=== PATIENT | male | born 1960 | race Two or more races ===

== ENCOUNTER → 2022-06-01 13:32 | Outpatient (BNVA) | payer MEDICARE, MEDICAID, SELFPAY | PROVIDERS: PCP Hospitalist; Visit Provider Surgery | DX: L98.9 Disorder of the skin and subcutaneous tissue, unspecified (principal) | CPT/HCPCS: 99202 ==

== ENCOUNTER 2022-06-23 13:07 | Outpatient (REF) | payer MEDICARE, MEDICAID, SELFPAY | END 2022-06-23 13:08 | disposition home or self-care (01) | LOC: CF 13:07 | PROVIDERS: PCP Hospitalist; Visit Provider Surgery | DX: D22.4 Melanocytic nevi of scalp and neck (principal); L91.8 Other hypertrophic disorders of the skin | CPT/HCPCS: 11400; 11420; 88304; 88305 ==

== ENCOUNTER 2022-07-08 08:16 | Outpatient (REF) | payer MEDICARE, MEDICAID, SELFPAY ==
--- NOTE | ~2022-07-08 | CT_ITS ---
EXAMINATION: CT ANGIOGRAM CHEST WITHOUT AND WITH CONTRAST (CT PULMONARY ANGIOGRAM FOR PE) CLINICAL INFORMATION: Solitary pulmonary nodule, localized edema. COMPARISON: None TECHNIQUE: Prior to contrast administration, noncontrast localization images were obtained. Subsequently, multidetector volumetric imaging was performed from the thoracic inlet to below the diaphragms following the administration of 80 mL Omnipaque 350 intravenous contrast. No contrast reaction reported Sagittal, coronal, and MIP oblique sagittal reformatted images were obtained on the CT workstation, uploaded to PACS, and reviewed. This CT examination was performed using dose optimization techniques as appropriate, variously including the following: *Automated exposure control *Adjustment of mA and/or kV according to patient size (this includes techniques or standardized protocols for targeted exams where dose is matched to indication/reason for exam; i.e. extremities or head) *Use of iterative reconstruction technique Total exam dose-length product 158 mGy-cm. FINDINGS: The exam is limited secondary to breathing motion artifact. QUALITY OF STUDY/CONTRAST BOLUS: Satisfactory. PULMONARY ARTERIES: No central or segmental pulmonary emboli. THORACIC AORTA: The thoracic aorta is of normal caliber. No dissection or aneurysm seen. LUNG: The lungs are well-expanded and clear of acute pneumonic process. Minimal atelectatic changes are seen in the right lower lobe with elevated right hemidiaphragm. There is a 1 cm nodule right middle lobe. No additional lung nodules seen. PLEURA: No pleural effusion or pneumothorax. MEDIASTINUM: Heart size is normal. No pericardial effusion seen. No evidence of septal bowing or right heart strain. Small shotty lymph nodes are seen in the mediastinum. CHEST WALL/AXILLA: No axillary or internal mammary lymphadenopathy. OSSEOUS STRUCTURES: No acute or suspicious osseous abnormality. UPPER ABDOMEN: Visualized liver, pancreas and adrenal glands are unremarkable. No reflux of contrast into the hepatic veins to suggest elevated right heart pressures. Epvnn-ud-kocwkzhh-sized lymph nodes are seen in the upper retroperitoneum. The largest lymph nodes measure 2 cm on axial image 53/5. CT/CT angio chest PE protocol IMPRESSION: 1 cm right middle lobe nodule. No evidence of PE, aortic aneurysm or dissection. Minimal atelectatic changes right lower lobe. VTE: negative
[2022-07-08] MEDS: iohexoL 350 MG/ML 100 ML INFUS..BTL 65 ML IV (09:08)
== END 2022-07-08 08:17 | disposition home or self-care (01) ==
LOC: HO.CT 08:16
PROVIDERS: Visit Provider Hospitalist
DX: R91.1 Solitary pulmonary nodule (principal); R60.0 Localized edema; Z86.718 Personal history of other venous thrombosis and embolism
CPT/HCPCS: 71275; Q9967

== ENCOUNTER → 2022-08-23 13:50 | Outpatient (BNVA) | payer MEDICARE, MEDICAID, SELFPAY | PROVIDERS: PCP Hospitalist; Visit Provider Internal Medicine Cardiovascular Disease | DX: I10 Essential (primary) hypertension (principal) | CPT/HCPCS: 93005; 99202 ==

== ENCOUNTER 2022-10-03 16:25 | Outpatient (REF) | payer MEDICARE, MEDICAID, SELFPAY ==
[2022-10-04 08:30] LABS: HBS Num1 30.77 mIU/mL (0-7.99); HBc Num1 9.02 S/CO (0.00-0.79); Hepatitis B Surface Antigen Negative (Negative); ~HepC Num1 12.64 S/CO (0.00-0.79); ~Hepatitis B Surface Antibody REACTIVE (Nonreactive); ~Hepatitis C Antibody Reactive (Nonreactive)
[2022-10-04 14:53] LABS: HBc Num2 9.55 S/CO; HBc Num3 9.66 S/CO; Hepatitis B Core Antibody Reactive (Nonreactive)
[2022-10-05 08:26] LABS: Hepatitis A Antibody IgM 0.11 Index (0-0.79); ~Hepatitis A Antibody IgM Nonreactive (Nonreactive)
[2022-10-05 14:53] LABS: HCV Log PCR 6.37 Log IU/mL (NOT DETECTED); HepC Viral Load 2370000 IU/mL (NOT DETECTED)
[2022-10-11 08:03] LABS: FIB-ALT 62 U/L (9-46); FIB-Alpha-2-Macroglobulin 304 mg/dL (106-279); FIB-Apolipoprotein A1 123 mg/dL (94-176); FIB-GGT 154 U/L (3-70); FIB-Haptoglobin 39 mg/dL (43-212); FIB-Total Bilirubin 1.2 mg/dL (0.2-1.2); Liver Fibrosis Score 0.91; Liver Fibrosis Stage F4; Nec Inflam Act Grade A2
== END 2022-10-03 16:26 | disposition home or self-care (01) ==
LOC: HO.LAB 16:25
PROVIDERS: PCP Hospitalist; Visit Provider Nurse Practitioner Family
DX: R74.8 Abnormal levels of other serum enzymes (principal); R79.89 Other specified abnormal findings of blood chemistry; Z86.19 Personal history of other infectious and parasitic diseases
CPT/HCPCS: 36415; 81596; 86704; 86706; 86709; 86803; 87340; 87522; 99202

== ENCOUNTER → 2022-10-27 10:13 | Outpatient (BNVA) | payer MEDICARE, MEDICAID, SELFPAY | PROVIDERS: PCP Hospitalist; Visit Provider Urology | DX: N40.1 Benign prostatic hyperplasia with lower urinary tract symptoms (principal); R39.15 Urgency of urination | CPT/HCPCS: 51798; 99212 ==

== ENCOUNTER 2022-11-16 14:10 | Outpatient (REF) | payer MEDICARE, MEDICAID, SELFPAY ==
[2022-11-16 20:15] LABS: Ferritin 765 ng/mL (20-250)
[2022-11-18 06:24] LABS: HBS Num1 32.89 mIU/mL (0-7.99); HBc Num1 9.37 S/CO (0.00-0.79); HIV AB/AG Nonreactive (Nonreactive); HIV Num 1 0.15 S/CO (0.00-0.99); ~Hepatitis B Surface Antibody REACTIVE (Nonreactive)
[2022-11-18 06:43] LABS: Hepatitis A Antibody IgG REACTIVE (Nonreactive); Hepatitis A Antibody IgM 0.11 Index (0-0.79); ~Hepatitis A Antibody IgG 9.29 S/CO (0.00-0.99); ~Hepatitis A Antibody IgM Nonreactive (Nonreactive)
[2022-11-18 07:57] LABS: HBc Num2 9.34 S/CO; HBc Num3 9.32 S/CO; Hepatitis B Core Antibody Reactive (Nonreactive)
[2022-11-18 14:02] LABS: Alpha Fetoprotein 9.2 ng/mL (<6.1)
[2022-11-18 14:13] LABS: Anti Nuclear Antibody Screen NEGATIVE (NEGATIVE)
[2022-11-18 18:09] LABS: HCV RNA PCR Qn 2830000 IU/mL (NOT DETECTED); HCV RNA PCR Qn 6.45 Log IU/mL (NOT DETECTED)
[2022-11-20 07:18] LABS: Hepatitis B Core Antibody IgM NON-REACTIVE (NON-REACTIVE)
[2022-11-20 07:33] LABS: Hepatitis B Viral DNA Qn - cp <1.00 NOT DETECTED Log IU/mL (NOT DETECTED); Hepatitis B Viral DNA Qn-IU/mL <10 NOT DETECTED IU/mL (NOT DETECTED)
[2022-11-22 11:34] LABS: Mitochondrial Antibodies NEGATIVE (NEGATIVE)
[2022-11-22 22:13] LABS: Smooth Muscle Antibody 21 U (<20)
[2022-11-24 15:58] LABS: HCV Genotype LiPA 2
== END 2022-11-16 14:11 | disposition home or self-care (01) ==
LOC: HO.LAB 14:10
PROVIDERS: PCP Hospitalist; Referring Provider Hospitalist; Visit Provider Nurse Practitioner Family
DX: Z11.4 Encounter for screening for human immunodeficiency virus [HIV] (principal); B18.2 Chronic viral hepatitis C; R79.89 Other specified abnormal findings of blood chemistry; R74.8 Abnormal levels of other serum enzymes; K74.60 Unspecified cirrhosis of liver
CPT/HCPCS: 36415; 82105; 82728; 86015; 86038; 86039; 86255; 86256; 86704; 86705; 86706; 86708; 86709; 87389; 87517; 87902; 99212

== ENCOUNTER 2022-12-19 13:29 | Outpatient (REF) | payer MEDICARE, MEDICAID, SELFPAY | END 2022-12-19 13:30 | disposition home or self-care (01) | LOC: HO.SH 13:29 | PROVIDERS: Visit Provider Hospitalist | DX: Z01.118 Encounter for examination of ears and hearing with other abnormal findings (principal); Z46.1 Encounter for fitting and adjustment of hearing aid; H90.3 Sensorineural hearing loss, bilateral | CPT/HCPCS: 92557; 92567; 92591 ==

== ENCOUNTER → 2023-02-16 07:55 | Day surgery (SDC) | payer MEDICARE, MEDICAID, SELFPAY ==
[2023-02-14 10:34] VITALS: BMI 36.0
--- NOTE | 2023-02-15 13:55 | HO.ANESPROP2 ---
HPI - Anesthesia Eval Consult details Narrative: 62yo M for Upper Endoscopy and Colonoscopy Xarelto and IVC for CVA/DVT [facility] resident Hx polysub abuse Cx'd DOS d/t guardian unavailable for consent PMFSH Active Problems Active Problems: All Active Problems (Updated 02/14/23 @ 10:31 by Stella Cerda RN) Dementia (Acute) Gallstones (Acute) Hepatomegaly (Acute) Hypothyroid (Acute) Chronic hepatitis C (Acute) BPH (benign prostatic hyperplasia) (Acute) Frequent falls (Acute) Personality disorder in adult (Acute) Urinary urgency (Acute) Transaminitis (Acute) Skin lesions (Acute) Seizure disorder (Acute) Hypertension (Acute) Polysubstance (excluding opioids) dependence with physiological dependence (Acute) Past Medical History Medical History Alcohol abuse BPH (benign prostatic hyperplasia) Chronic hepatitis CVA (cerebral vascular accident) Dementia DVT (deep venous thrombosis) Hypertension Hypothyroid Polysubstance (excluding opioids) dependence with physiological dependence [facility]ides in [facility] facility Seizure disorder Skin lesions Transaminitis Family History Family History Mother Cancer Surgical History Surgical History H/O splenectomy S/P insertion of inferior vena caval filter Social History Social History Housing Other:: resides at [place] [phone] Are you a primary home health care case manager to a significant other at home: No Do you presently have visiting nurse or other home services: No Alcohol intake: former Patient Tobacco Use Status: Current everyday Tobacco user Tobacco use type: Cigarette Cigarettes Per Day: 4 Have you been hit, kicked, punched, or otherwise hurt by someone within the past year? If so, by whom?: No Advance Directives Information Provided: Yes (as above noted-to be faxed) Advance Directives on File: No Recently lost weight without trying: No Eating poorly because of decreased appetite: No Nutrition Risks: No Nutritional Risk Poor oral hygiene: No Meds Allergies Allergy/AdvReac Type Severity Reaction Status Date / Time No Known Allergies Allergy Verified 11/16/22 14:33 Home Medications Medication Instructions Recorded Confirmed Last Taken Type acetaminophen 325 mg tablet 325 mg PO QID PRN 06/01/22 10/27/22 Unknown History artificial tears solution eye drops drp ophthalmic (eye) 06/01/22 10/27/22 Unknown History atorvastatin 20 mg tablet (Lipitor) 20 mg PO BEDTIME 06/01/22 10/27/22 Unknown History bisacodyl 10 mg rectal suppository 10 mg SC DAILY PRN 06/01/22 10/27/22 Unknown History divalproex 500 mg tablet,delayed 500 mg PO BID 06/01/22 10/27/22 Unknown History release hydrocortisone 2.5 % rectal cream ea SC 06/01/22 10/27/22 Unknown History with applicator hydroxyzine HCl 25 mg tablet 25 mg PO BEDTIME 06/01/22 10/27/22 Unknown History lactulose 10 gram/15 mL oral 60 ml PO TID 06/01/22 10/27/22 Unknown History solution levetiracetam 500 mg tablet 500 mg PO BID 06/01/22 10/27/22 Unknown History levothyroxine 25 mcg tablet 25 mcg PO DAILY 06/01/22 10/27/22 Unknown History lidocaine 5 % topical patch 1 patch topical DAILY 06/01/22 10/27/22 Unknown History multivitamin 1 tab PO DAILY 06/01/22 10/27/22 Unknown History ondansetron HCl 4 mg tablet 4 mg PO Q8H 06/01/22 10/27/22 Unknown History rifaximin 550 mg tablet 550 mg PO BID 06/01/22 10/27/22 Unknown History risperidone 1 mg tablet 1 mg PO BID 06/01/22 10/27/22 Unknown History rivaroxaban 20 mg tablet (Xarelto) 20 mg PO DAILY 06/01/22 10/27/22 Unknown History sennosides 8.6 mg tablet (senna) 8.6 mg PO DAILY 06/01/22 10/27/22 Unknown History sertraline 100 mg tablet 100 mg PO DAILY 06/01/22 10/27/22 Unknown History sodium chloride 0.65 % nasal spray 2 spray intranasal QID PRN 06/01/22 10/27/22 Unknown History aerosol (Saline Nasal) sodium chloride 1 gram tablet 1,000 mg PO TID 06/01/22 10/27/22 Unknown History sodium phosphates 19 gram-7 118 ml SC BEDTIME PRN 06/01/22 10/27/22 Unknown History gram/118 mL enema (Fleet Enema) Exam Exam Date and Time: February 15, 2023 1355 Height,Weight and Vital Signs: Height 5 ft 9 in Weight 110.677 kg Narrative Narrative: EKG 08/2022 normal sinus rhythm with normal EKG Chest CTA 06/2022 CT angio chest PE protocol IMPRESSION: 1 cm right middle lobe nodule. ? No evidence of PE, aortic aneurysm or dissection. ? Minimal atelectatic changes right lower lobe. ? VTE: negative Assessment and Plan Assessment Anesthesia Assessment: Chart Reviewed
--- NOTE | 2023-02-16 08:20 | P.HPSUR_ITS ---
Pre-Procedural Eval Section A Date of Service: 02/16/23 Section B Chief Complaint: screening,chronic viral hep C Relevant Family History (Specify if Yes): No Relevant Social History: Tobacco Use Present Medications: see Short Stay Collaborative assessment Medical History: Significant History (Alcohol abuse BPH (benign prostatic hyperplasia) Chronic hepatitis CVA (cerebral vascular accident) Dementia DVT (deep venous thrombosis) Hypertension Hypothyroid Polysubstance (excluding opioids) dependence with physiological dependence Resides in long-term facility Seizure disorder Skin lesi) History of Previous Operations: Relevant previous surgery/procedure and date(s) (splenectomy) Allergies: Allergies Allergy/AdvReac Type Severity Reaction Status Date / Time No Known Allergies Allergy Verified 11/16/22 14:33 Review of Systems Sugical H&P ROS: Negative: Constitution, Cardiovascular, Respiratory, Neurological, Psychiatric, Hem-Onc, Allergic/Immunologic, Gastrointestinal, Genitourinary, Musculoskeletal, Integumentary, Endocrine and Eyes/Ears/Nose /Throat Exam Surgical H&P Exam: Normal: HEENT, Normal: Heart, Normal: Lungs, Normal: Extremities, Normal: Abdomen, Normal: Skin and Normal: Neurological Plan Diagnosis/Plan: Unchanged I have reviewed the history and physical and performed a pertinent physical examination on my patient. No changes have occurred unless specified. Time Spent With Patient Time: Total time managing care of this patient today ____ minutes.
[2023-02-16 08:32] VITALS: BP 152/91; PULSE 91; RESP 18; TEMP 36.6; O2SAT 93
--- NOTE | 2023-02-16 08:40 | HO.ANESPROP2 ---
[facility] Active Problems Active Problems: All Active Problems (Updated 02/14/23 @ 10:31 by Stella Cerda RN) Dementia (Acute) Gallstones (Acute) Hepatomegaly (Acute) Hypothyroid (Acute) Chronic hepatitis C (Acute) BPH (benign prostatic hyperplasia) (Acute) Frequent falls (Acute) Personality disorder in adult (Acute) Urinary urgency (Acute) Transaminitis (Acute) Skin lesions (Acute) Seizure disorder (Acute) Hypertension (Acute) Polysubstance (excluding opioids) dependence with physiological dependence (Acute) Past Medical History Medical History Alcohol abuse BPH (benign prostatic hyperplasia) Chronic hepatitis CVA (cerebral vascular accident) Dementia DVT (deep venous thrombosis) Hypertension Hypothyroid Polysubstance (excluding opioids) dependence with physiological dependence Resides in snf facility Seizure disorder Skin lesions Transaminitis Family History Family History Mother Cancer Surgical History Surgical History H/O splenectomy S/P insertion of inferior vena caval filter Social History Social History Housing Other:: resides at [place] [phone] Are you a primary medicare insurance specialist to a significant other at home: No Do you presently have visiting nurse or other home services: No Alcohol intake: former Patient Tobacco Use Status: Current everyday Tobacco user Tobacco use type: Cigarette Cigarettes Per Day: 4 Have you been hit, kicked, punched, or otherwise hurt by someone within the past year? If so, by whom?: No Advance Directives Information Provided: Yes (as above noted-to be faxed) Advance Directives on File: No Recently lost weight without trying: No Eating poorly because of decreased appetite: No Nutrition Risks: No Nutritional Risk Poor oral hygiene: No Meds Allergies Allergy/AdvReac Type Severity Reaction Status Date / Time No Known Allergies Allergy Verified 11/16/22 14:33 Active Medications: Current Medications Lactated Ringer's (Lr) 1,000 mls @ 100 mls/hr IVCONT .Q10H [facility] Home Medications Medication Instructions Recorded Confirmed Last Taken Type acetaminophen 325 mg tablet 325 mg PO QID PRN 06/01/22 10/27/22 Unknown History artificial tears solution eye drops drp ophthalmic (eye) 06/01/22 10/27/22 Unknown History atorvastatin 20 mg tablet (Lipitor) 20 mg PO BEDTIME 06/01/22 10/27/22 Unknown History bisacodyl 10 mg rectal suppository 10 mg DE DAILY PRN 06/01/22 10/27/22 Unknown History divalproex 500 mg tablet,delayed 500 mg PO BID 06/01/22 10/27/22 Unknown History release hydrocortisone 2.5 % rectal cream ea DE 06/01/22 10/27/22 Unknown History with applicator hydroxyzine HCl 25 mg tablet 25 mg PO BEDTIME 06/01/22 10/27/22 Unknown History lactulose 10 gram/15 mL oral 60 ml PO TID 06/01/22 10/27/22 Unknown History solution levetiracetam 500 mg tablet 500 mg PO BID 06/01/22 10/27/22 Unknown History levothyroxine 25 mcg tablet 25 mcg PO DAILY 06/01/22 10/27/22 Unknown History lidocaine 5 % topical patch 1 patch topical DAILY 06/01/22 10/27/22 Unknown History multivitamin 1 tab PO DAILY 06/01/22 10/27/22 Unknown History ondansetron HCl 4 mg tablet 4 mg PO Q8H 06/01/22 10/27/22 Unknown History rifaximin 550 mg tablet 550 mg PO BID 06/01/22 10/27/22 Unknown History risperidone 1 mg tablet 1 mg PO BID 06/01/22 10/27/22 Unknown History rivaroxaban 20 mg tablet (Xarelto) 20 mg PO DAILY 06/01/22 10/27/22 Unknown History sennosides 8.6 mg tablet (senna) 8.6 mg PO DAILY 06/01/22 10/27/22 Unknown History sertraline 100 mg tablet 100 mg PO DAILY 06/01/22 10/27/22 Unknown History sodium chloride 0.65 % nasal spray 2 spray intranasal QID PRN 06/01/22 10/27/22 Unknown History aerosol (Saline Nasal) sodium chloride 1 gram tablet 1,000 mg PO TID 06/01/22 10/27/22 Unknown History sodium phosphates 19 gram-7 118 ml DE BEDTIME PRN 06/01/22 10/27/22 Unknown History gram/118 mL enema (Fleet Enema) Exam Exam Date and Time: February 16, 2023 0840 Height,Weight and Vital Signs: Height 5 ft 9 in Weight 110.677 kg Last Vital Signs Temp 97.9 F 02/16/23 08:32 Pulse 91 02/16/23 08:32 Resp 18 02/16/23 08:32 BP 152/91 H 02/16/23 08:32 Pulse Ox 93 02/16/23 08:32 O2 Del Method Room Air 02/16/23 08:32 Airway Mallampati Class: II TM Dist: >3cm Neck ROM: Full Heart: RRR Lungs: CTA Assessment and Plan Final Anesthetic Review NPO: Yes ASA Class: III Final Preanesthetic Review: Meds/Allgs Chart Reviewed and Anes Risks/Benef Reviewed Patient Risk: Intermediate Procedure Risk: Low Anesthetic Plan Anesthetic Plan: MAC: Disposition: Standard PACU
[2023-02-16 08:41] VITALS: BP 152/91; PULSE 91; RESP 18; TEMP 36.6; O2SAT 92
[2023-02-16 09:18] VITALS: BMI 34.9
--- NOTE | 2023-02-16 09:19 | PC.NURSE ---
calls made to jalil guarantor, messages left at both cell and home ([phone] and [phone]. answering machine, x2 by this RN x 2 by sizer hand and attempt no answer by floor anesthesia Dr. Lopez. Dr. Reed aware anesthesiologist for room.
[2023-02-16] MEDS: Lactated Ringers 1,000 ML 100 ML IVCONT (09:25)
--- NOTE | 2023-02-16 10:14 | PC.NURSE ---
[id number] again, call to [facility]al[facility] guarantor, again, no answer, again left message for return call. Dr. Graham and Dr. Reed and Dr. Lopez aware case cancelled per Dr. Graham & Dr. Lopez
--- NOTE | 2023-02-16 10:21 | PC.NURSE ---
Initial call to [facility] Sarahi pt could not sign for self. 10:15 call placed by [facility] [employer], at bedside with pt to [facility], spoke with Sarahi Director of Nsg & to fax paperwork for voluntary conservatory and states pt can sign for self.
--- NOTE | 2023-02-16 10:32 | PC.NURSE ---
per faxed paperwork, guardianship is not voluntary. iv out dsd, no oozing. pt dressed and guided out. pharmacist in charge owner Monet speaking with Sarahi.
== END ==
PROVIDERS: PCP Hospitalist; Visit Provider Internal Medicine Gastroenterology
DX: Z12.11 Encounter for screening for malignant neoplasm of colon (principal); B18.2 Chronic viral hepatitis C; Z53.8 Procedure and treatment not carried out for other reasons

== ENCOUNTER → 2023-03-09 14:43 | Outpatient (BNVA) | payer MEDICARE, MEDICAID, SELFPAY | PROVIDERS: PCP Hospitalist; Visit Provider Surgery | DX: L98.9 Disorder of the skin and subcutaneous tissue, unspecified (principal) | CPT/HCPCS: 99212 ==

== ENCOUNTER 2023-03-15 13:56 | Day surgery (SDC) | payer MEDICARE, MEDICAID, SELFPAY ==
[2023-03-13 14:58] VITALS: BMI 36.0
--- NOTE | 2023-03-14 12:16 | HO.ANESPROP2 ---
Documented by User: Elana Singh NP 03/14/23 12:16 HPI - Anesthesia Eval Consult details Narrative: 62yo M for Upper Endoscopy and Colonoscopy Xarelto and IVC for CVA/DVT [facility] resident Hx polysub abuse Previously Cx'd DOS d/t guardian unavailable for consent PMFSH Active Problems Active Problems: All Active Problems (Updated 03/09/23 @ 15:23 by Valente Joiner MD) Skin lesions, generalized (Acute) Dementia (Acute) Gallstones (Acute) Hepatomegaly (Acute) Hypothyroid (Acute) Chronic hepatitis C (Acute) BPH (benign prostatic hyperplasia) (Acute) Frequent falls (Acute) Personality disorder in adult (Acute) Urinary urgency (Acute) Transaminitis (Acute) Skin lesions (Acute) Seizure disorder (Acute) Hypertension (Acute) Polysubstance (excluding opioids) dependence with physiological dependence (Acute) Past Medical History Medical History (Updated 03/09/23 @ 15:23 by Valente Joiner MD) Alcohol abuse BPH (benign prostatic hyperplasia) Chronic hepatitis CVA (cerebral vascular accident) Dementia DVT (deep venous thrombosis) Hypertension Hypothyroid Polysubstance (excluding opioids) dependence with physiological dependence Resides in long term facility Seizure disorder Skin lesions Skin lesions, generalized Transaminitis Family History Family History Mother Cancer Surgical History Surgical History H/O splenectomy S/P insertion of inferior vena caval filter Social History Social History Housing Other:: resides at [place] [phone] Are you a primary child care giver to a significant other at home: No Do you presently have visiting nurse or other home services: Yes ([facility] staff) Alcohol intake: former Patient Tobacco Use Status: Current everyday Tobacco user Tobacco use type: Cigarette Cigarettes Per Day: 4 Use of substances other than those prescribed or required for medical reasons: No Have you been hit, kicked, punched, or otherwise hurt by someone within the past year? If so, by whom?: No Are you DNR?: No Advance Directives Information Provided: Yes (as above noted) Advance Directives on File: No Recently lost weight without trying: No Nutrition Risks: No Nutritional Risk Poor oral hygiene: No Meds Allergies Allergy/AdvReac Type Severity Reaction Status Date / Time No Known Allergies Allergy Verified 03/09/23 14:54 Home Medications Medication Instructions Recorded Confirmed Last Taken Type acetaminophen 325 mg tablet 325 mg PO QID PRN Pain 06/01/22 03/13/23 Unknown History artificial tears solution eye drops 1 drp ophthalmic (eye) DAILY 06/01/22 03/13/23 Unknown History atorvastatin 20 mg tablet (Lipitor) 20 mg PO BEDTIME 06/01/22 03/13/23 Unknown History bisacodyl 10 mg rectal suppository 10 mg MI DAILY PRN Constipation 06/01/22 03/13/23 Unknown History divalproex 500 mg tablet,delayed 500 mg PO BID 06/01/22 03/13/23 Unknown History release hydrocortisone 2.5 % rectal cream 1 ea MI DAILY 06/01/22 03/13/23 Unknown History with applicator hydroxyzine HCl 25 mg tablet 25 mg PO BEDTIME 06/01/22 03/13/23 Unknown History lactulose 10 gram/15 mL oral 60 ml PO TID 06/01/22 03/13/23 Unknown History solution levetiracetam 500 mg tablet 500 mg PO BID 06/01/22 03/13/23 Unknown History levothyroxine 25 mcg tablet 25 mcg PO DAILY 06/01/22 03/13/23 Unknown History lidocaine 5 % topical patch 1 patch topical DAILY 06/01/22 03/13/23 Unknown History multivitamin 1 tab PO DAILY 06/01/22 03/13/23 Unknown History ondansetron HCl 4 mg tablet 4 mg PO Q8H 06/01/22 03/13/23 Unknown History rifaximin 550 mg tablet 550 mg PO BID 06/01/22 03/13/23 Unknown History risperidone 1 mg tablet 1 mg PO BID 06/01/22 03/13/23 Unknown History rivaroxaban 20 mg tablet (Xarelto) 20 mg PO DAILY 06/01/22 03/13/23 Unknown History sennosides 8.6 mg tablet (senna) 8.6 mg PO DAILY 06/01/22 03/13/23 Unknown History sertraline 100 mg tablet 100 mg PO DAILY 06/01/22 03/13/23 Unknown History sodium chloride 0.65 % nasal spray 2 spray intranasal QID PRN dryness 06/01/22 03/13/23 Unknown History aerosol (Saline Nasal) sodium chloride 1 gram tablet 1,000 mg PO TID 06/01/22 03/13/23 Unknown History sodium phosphates 19 gram-7 118 ml MI BEDTIME PRN Constipation 06/01/22 03/13/23 Unknown History gram/118 mL enema (Fleet Enema) Exam Exam Date and Time: March 14, 2023 1216 Height,Weight and Vital Signs: Height 5 ft 9 in Weight 110.677 kg Assessment and Plan Assessment Anesthesia Assessment: Chart Reviewed Documented by User: Vin Valentino MD 03/15/23 14:05 [facility] Past Medical History Medical History (Updated 03/09/23 @ 15:23 by Valente Joiner MD) Alcohol abuse BPH (benign prostatic hyperplasia) Chronic hepatitis CVA (cerebral vascular accident) Dementia DVT (deep venous thrombosis) Hypertension Hypothyroid Polysubstance (excluding opioids) dependence with physiological dependence Resides in long term facility Seizure disorder Skin lesions Skin lesions, generalized Transaminitis Family History Family History Mother Cancer Family history of problems with anesthesia: No Surgical History Surgical History H/O splenectomy S/P insertion of inferior vena caval filter History of Problems with Anesthesia: No Social History Social History Housing Other:: resides at [facility] [phone] Are you a primary child care giver to a significant other at home: No Do you presently have visiting nurse or other home services: Yes ([facility] staff) Alcohol intake: former Patient Tobacco Use Status: Current everyday Tobacco user Tobacco use type: Cigarette Cigarettes Per Day: 4 Use of substances other than those prescribed or required for medical reasons: No Have you been hit, kicked, punched, or otherwise hurt by someone within the past year? If so, by whom?: No Are you DNR?: No Advance Directives Information Provided: Yes (as above noted) Advance Directives on File: No Recently lost weight without trying: No Nutrition Risks: No Nutritional Risk Poor oral hygiene: No Meds Allergies Allergy/AdvReac Type Severity Reaction Status Date / Time No Known Allergies Allergy Verified 03/09/23 14:54 Home Medications Medication Instructions Recorded Confirmed Last Taken Type acetaminophen 325 mg tablet 325 mg PO QID PRN Pain 06/01/22 03/13/23 Unknown History artificial tears solution eye drops 1 drp ophthalmic (eye) DAILY 06/01/22 03/13/23 Unknown History atorvastatin 20 mg tablet (Lipitor) 20 mg PO BEDTIME 06/01/22 03/13/23 Unknown History bisacodyl 10 mg rectal suppository 10 mg MI DAILY PRN Constipation 06/01/22 03/13/23 Unknown History divalproex 500 mg tablet,delayed 500 mg PO BID 06/01/22 03/13/23 Unknown History release hydrocortisone 2.5 % rectal cream 1 ea MI DAILY 06/01/22 03/13/23 Unknown History with applicator hydroxyzine HCl 25 mg tablet 25 mg PO BEDTIME 06/01/22 03/13/23 Unknown History lactulose 10 gram/15 mL oral 60 ml PO TID 06/01/22 03/13/23 Unknown History solution levetiracetam 500 mg tablet 500 mg PO BID 06/01/22 03/13/23 Unknown History levothyroxine 25 mcg tablet 25 mcg PO DAILY 06/01/22 03/13/23 Unknown History lidocaine 5 % topical patch 1 patch topical DAILY 06/01/22 03/13/23 Unknown History multivitamin 1 tab PO DAILY 06/01/22 03/13/23 Unknown History ondansetron HCl 4 mg tablet 4 mg PO Q8H 06/01/22 03/13/23 Unknown History rifaximin 550 mg tablet 550 mg PO BID 06/01/22 03/13/23 Unknown History risperidone 1 mg tablet 1 mg PO BID 06/01/22 03/13/23 Unknown History rivaroxaban 20 mg tablet (Xarelto) 20 mg PO DAILY 06/01/22 03/13/23 Unknown History sennosides 8.6 mg tablet (senna) 8.6 mg PO DAILY 08/10/22 05/22/23 Unknown History sertraline 100 mg tablet 100 mg PO DAILY 06/01/22 03/13/23 Unknown History sodium chloride 0.65 % nasal spray 2 spray intranasal QID PRN dryness 06/01/22 03/13/23 Unknown History aerosol (Saline Nasal) sodium chloride 1 gram tablet 1,000 mg PO TID 06/01/22 03/13/23 Unknown History sodium phosphates 19 gram-7 118 ml MI BEDTIME PRN Constipation 06/01/22 03/13/23 Unknown History gram/118 mL enema (Fleet Enema) Exam Airway Mallampati Class: II TM Dist: >3cm Neck ROM: Full Heart: rrr Lungs: cta Assessment and Plan Assessment Anesthesia Assessment: Anesthesia Plan Discussed Final Anesthetic Review Family History of Problems with Anesthesia: No History of Problems with Anesthesia: No NPO: Yes ASA Class: III Final Preanesthetic Review: No Changes in Pt Med Stat, Meds/Allgs Chart Reviewed, Consent Obtained/Reviewed and Anes Risks/Benef Reviewed Patient Risk: Intermediate Procedure Risk: Intermediate Anesthetic Plan Anesthetic Plan: MAC: and Agree w/ Assess. and Plan Disposition: Standard PACU
[2023-03-15 14:21] VITALS: BP 141/88; PULSE 75; RESP 16; TEMP 36.1; O2SAT 93
--- NOTE | 2023-03-15 14:41 | PC.NURSE ---
1435-fleet enema performed. laying left supine. aware of plan. output was dark yellow. unable to see down into the toilet. cluody and dark. md gomez aware.
--- NOTE | 2023-03-15 14:48 | P.HPSUR_ITS ---
Pre-Procedural Eval Section A Date of Service: 03/15/23 Section B Chief Complaint: screening,chrinic viral hep c, Relevant Family History (Specify if Yes): No Relevant Social History: Tobacco Use Present Medications: see Short Stay Collaborative assessment Medical History: Significant History (Alcohol abuse BPH (benign prostatic hyperplasia) Chronic hepatitis CVA (cerebral vascular accident) Dementia DVT (deep venous thrombosis) Hypertension Hypothyroid Polysubstance (excluding opioids) dependence with physiological dependence Resides in [facility] facility Seizure disorder Skin lesi) History of Previous Operations: Relevant previous surgery/procedure and date(s) (H/O splenectomy S/P insertion of inferior vena caval filter) Allergies: Allergies Allergy/AdvReac Type Severity Reaction Status Date / Time meperidine [From Demerol] Allergy Unknown Verified 03/15/23 14:09 Review of Systems Sugical H&P ROS: Negative: Constitution, Cardiovascular, Respiratory, Neurological, Psychiatric, Hem-Onc, Allergic/Immunologic, Gastrointestinal, Genitourinary, Musculoskeletal, Integumentary, Endocrine and Eyes/Ears/Nose/Throat Exam Surgical H&P Exam: Normal: HEENT, Normal: Heart, Normal: Lungs, Normal: Ext remities, Normal: Abdomen, Normal: Skin and Normal: Neurological Plan Diagnosis/Plan: Unchanged I have reviewed the history and physical and performed a pertinent physical examination on my patient. No changes have occurred unless specified. colonsocopy cancelled as prep was poor, EGD fro varcieal assessment -hx of hep C Time Spent With Patient Time: Total time managing care of this patient today ____ minutes.
[2023-03-15] MEDS: Lactated Ringers 1,000 ML 100 ML IVCONT (14:59)
--- NOTE | 2023-03-15 15:00 | W.PM.OPN ---
Operative Note Operative Note Date of Service: 03/15/23 Narrative: Procedure Description: EGD Indication: Hep C and F4 on fibrosure--screening for varices Anesthesia: MAC FLEXIBLE TRANSORAL UPPER GASTROINTESTINAL ENDOSCOPY UPPER ENDOSCOPY Consent: Indications for the procedure and potential complications of bleeding, perforation, reaction to medications and missed diagnosis were discussed with the patient and informed consent was obtained. Instrument: Olympus GIF H 190 J mid size upper endoscope Monitoring: Vital signs and clinical assessment, continuous EKG monitoring, Pulse oximetry, Carbon Dioxide monitoring and blood pressure monitoring were done throughout the procedure. Procedure: The patient was placed in the left lateral decubitis position and pre-procedure medications were administered and a bite block was placed. The endoscope was inserted into the mouth and advanced under direct vision to the third part of duodenum. A careful inspection was made as the upper endoscope was withdrawn including a retroflexed examination of the proximal stomach; Findings and interventions are described below. Findings: Larynx:normal Esophagus: GE junction at 42 cm, diaphragm hiatus at 42 cm, mild esophagitis, x1 grade I varix which collapsed with air insufflation Stomach: Patchy gastric erythema. Biopsies were obtained. Grade 2 flap valve on retroflexed examination of the cardia. Duodenum: Mild bulbar duodenitis and normal descending duodenum, bx taken Intervention: Biopsies as noted above Impression/Findings: gastritis duodenitis x1 small esophgeal varix PLAN: can restart rivaroxiban tommorow repeat EGD in 1-2 years if h pylori pos then treat r/s for colonoscopy with prep compliance next time
[2023-03-15 15:23] VITALS: BP 128/84; PULSE 82; RESP 16; TEMP 36.6; O2SAT 94
[2023-03-15 15:38] VITALS: BP 137/88; PULSE 79; RESP 14; TEMP 36.5; O2SAT 95
[2023-03-15 15:53] VITALS: BP 137/92; PULSE 75; RESP 16; TEMP 36.5; O2SAT 95
--- NOTE | 2023-03-15 16:23 | PC.NURSE ---
Nurse to nurse report given to [facility] RN
== END 2023-03-15 16:01 | disposition home or self-care (01) ==
PROVIDERS: PCP Hospitalist; Visit Provider Internal Medicine Gastroenterology
PROC: (CPT 43239; principal; 2023-03-15 15:20)
DX: B18.2 Chronic viral hepatitis C (principal); I85.00 Esophageal varices without bleeding; K74.00 Hepatic fibrosis, unspecified; K29.50 Unspecified chronic gastritis without bleeding; K29.80 Duodenitis without bleeding; K44.9 Diaphragmatic hernia without obstruction or gangrene; I10 Essential (primary) hypertension; F10.10 Alcohol abuse, uncomplicated; F19.20 Other psychoactive substance dependence, uncomplicated; F03.90 Unspecified dementia, unspecified severity, without behavioral disturbance, psychotic disturbance, mood disturbance, and anxiety; I82.409 Acute embolism and thrombosis of unspecified deep veins of unspecified lower extremity; Z95.828 Presence of other vascular implants and grafts; G40.909 Epilepsy, unspecified, not intractable, without status epilepticus; Z86.73 Personal history of transient ischemic attack (TIA), and cerebral infarction without residual deficits; N40.0 Benign prostatic hyperplasia without lower urinary tract symptoms; E03.9 Hypothyroidism, unspecified; Z90.81 Acquired absence of spleen; Z88.8 Allergy status to other drugs, medicaments and biological substances; F17.210 Nicotine dependence, cigarettes, uncomplicated; Z79.01 Long term (current) use of anticoagulants; Z79.899 Other long term (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
CPT/HCPCS: 43239; 88305; 88342

== ENCOUNTER 2023-03-23 08:09 | Outpatient (REF) | payer MEDICARE, MEDICAID, SELFPAY ==
--- NOTE | ~2023-03-23 | CT_ITS ---
EXAMINATION: CT ABDOMEN WITHOUT AND WITH CONTRAST CLINICAL INFORMATION: Viral hepatitis C COMPARISON: None available. TECHNIQUE: Contiguous axial thin section helical images of the abdomen were performed before and after the administration of oral contrast and 85 mL of Omnipaque 350 intravenous contrast. The data set was reformatted in the coronal and sagittal planes and reviewed on an independent workstation. This CT examination was performed using dose optimization techniques as appropriate, variously including the following: *Automated exposure control *Adjustment of mA and/or kV according to patient size (this includes techniques or standardized protocols for targeted exams where dose is matched to indication/reason for exam; i.e. extremities or head) *Use of iterative reconstruction technique DLP: 1267 mGy-cm FINDINGS: LUNG BASES: Slight elevation of the right hemidiaphragm. Enlarged right cardiophrenic angle or anterior diaphragmatic lymph nodes. These measure 1.1 cm in short axis axial image. Left-sided gynecomastia. LIVER, GALLBLADDER, AND BILIARY TREE: Lobulated contour of the liver with hypertrophy of the left lobe and caudate lobe suggestive of cirrhosis. Liver is normal in size. No focal liver lesion. Gallstones. No intra or extrahepatic biliary duct dilatation. No ascites. PANCREAS: Normal SPLEEN: Absent spleen. Probable splenule in the left upper quadrant measuring 3 cm. ADRENAL GLANDS AND KIDNEYS: The adrenal glands are normal. There are small bilateral low-attenuation renal lesions suggestive of cysts. No imaging follow-up recommended. The kidneys are otherwise normal. BOWEL LOOPS: Postsurgical change to the small bowel. Mild dilatation of the small bowel at the surgical staple line. Small and large bowel are otherwise unremarkable. The appendix is unremarkable. Question wall thickening of the distal stomach versus changes due to nondistention. There are postsurgical changes to the anterior abdominal wall. LYMPH NODES: Enlarged periportal lymph nodes. Largest lymph node measures 1.6 cm in axis. There are smaller gastrohepatic, peripancreatic and upper abdominal retroperitoneal lymph nodes are there is no ascites. VASCULAR: Small upper abdominal varices. The portal and hepatic veins are patent. Abdominal aorta is normal in caliber. There is an IVC. BONES: Degenerative changes of the spine. CT/CT abdomen wo/w IV con IMPRESSION: Cirrhotic-appearing liver. No focal liver lesion. Enlarged lymph nodes, largest right cardiophrenic angle or anterior diaphragmatic lymph nodes and periportal lymph nodes. No ascites. Gallstones. Absent spleen and left upper quadrant splenule. Question wall thickening of the distal stomach Fleischner guidelines were followed.
[2023-03-23] MEDS: iohexoL 350 MG/ML 100 ML INFUS..BTL 85 ML IV (09:08)
[2023-03-23 09:28] LABS: Creatinine POC 0.5 mg/dL (0.5-1.4); GFR POC > 60
== END 2023-03-23 08:10 | disposition home or self-care (01) ==
LOC: HO.CT 08:09
PROVIDERS: PCP Hospitalist; Visit Provider Hospitalist
DX: B19.20 Unspecified viral hepatitis C without hepatic coma (principal)
CPT/HCPCS: 74170; 82565; Q9967

== ENCOUNTER 2023-04-27 10:00 | Day surgery (SDC) | payer MEDICARE, MEDICAID, SELFPAY ==
[2023-04-24 08:33] VITALS: BMI 36.0
--- NOTE | 2023-04-26 13:40 | PC.NURSE ---
Addendum entered by Monet Alcantara RN 04/26/23 13:41: Addendum - reached Guardian Tamiko Osman at [phone] Original Note: Guardian Shannon reached by phone at 1202 by this RN and informed will need to have phone available tomorrow for patients telephone consent. Guardian understood instructions & agreed to give consent by phone tomorrow.
[2023-04-27 10:34] VITALS: BP 142/95; PULSE 72; RESP 20; TEMP 36.6; O2SAT 94
--- NOTE | 2023-04-27 11:48 | MHC.SHP ---
Pre-Procedural Eval Section A Date of Service: 04/27/23 Section B Chief Complaint: Encounter for screening for malignant neoplasm of Relevant Family History (Specify if Yes): No Relevant Social History: Tobacco Use Present Medications: see Short Stay Collaborative assessment Medical History: Significant History (Alcohol abuse BPH (benign prostatic hyperplasia) Chronic hepatitis CVA (cerebral vascular accident) Dementia DVT (deep venous thrombosis) Hypertension Hypothyroid Polysubstance (excluding opioids) dependence with physiological dependence Resides in [facility] facility Seizure disorder Skin lesi) History of Previous Operations: Relevant previous surgery/procedure and date(s) (H/O splenectomy S/P insertion of inferior vena caval filter) Allergies: Allergies Allergy/AdvReac Type Severity Reaction Status Date / Time meperidine [From Demerol] Allergy Unknown Verified 03/15/23 14:09 aspirin [ASA] AdvReac Mild Unknown Verified 04/27/23 10:53 Review of Systems Sugical H&P ROS: Negative: Constitution, Cardiovascular, Respiratory, Neurological, Psychiatric, Hem-Onc, Allergic/Immunologic, Gastrointestinal, Genitourinary, Musculoskeletal, Integumentary, Endocrine and Eyes/Ears/Nose/Throat Exam Surgical H&P Exam: Normal: HEENT, Normal: Heart, Normal: Lungs, Normal: Extremities, Normal: Abdomen, Normal: Skin and Normal: Neurological Plan Diagnosis/Plan: Unchanged I have reviewed the history and physical and performed a pertinent physical examination on my patient. No changes have occurred unless specified. Time Spent With Patient Time: Total time managing care of this patient today ____ minutes.
--- NOTE | 2023-04-27 12:02 | HO.ANESPROP2 ---
HPI - Anesthesia Eval Consult details Narrative: colonoscopy [facility] Active Problems Active Problems: All Active Problems (Updated 03/09/23 @ 15:23 by Valente Joiner MD) Skin lesions, generalized (Acute) Dementia (Acute) Gallstones (Acute) Hepatomegaly (Acute) Hypothyroid (Acute) Chronic hepatitis C (Acute) BPH (benign prostatic hyperplasia) (Acute) Frequent falls (Acute) Personality disorder in adult (Acute) Urinary urgency (Acute) Transaminitis (Acute) Skin lesions (Acute) Seizure disorder (Acute) Hypertension (Acute) Polysubstance (excluding opioids) dependence with physiological dependence (Acute) Past Medical History Medical History (Updated 03/09/23 @ 15:23 by Valente Joiner MD) Alcohol abuse BPH (benign prostatic hyperplasia) Chronic hepatitis CVA (cerebral vascular accident) Dementia DVT (deep venous thrombosis) Hypertension Hypothyroid Polysubstance (excluding opioids) dependence with physiological dependence Resides in intermediate facility Seizure disorder Skin lesions Skin lesions, generalized Transaminitis Family History Family History Mother Cancer Family history of problems with anesthesia: No Surgical History Surgical History H/O splenectomy S/P insertion of inferior vena caval filter History of Problems with Anesthesia: No Social History Social History Household Members Other:: resides @ [place] [phone] Housing Other:: resides at [facility] [phone] Are you a primary skin care technician to a significant other at home: No Do you presently have visiting nurse or other home services: Yes ([facility] staff) Alcohol intake: former Patient Tobacco Use Status: Current everyday Tobacco user Tobacco use type: Cigarette Cigarettes Per Day: 4 Have you been hit, kicked, punched, or otherwise hurt by someone within the past year? If so, by whom?: No Are you DNR?: No Advance Directives Information Provided: Yes (info to be faxed) Advance Directives on File: No Recently lost weight without trying: No Eating poorly because of decreased appetite: No Nutrition Risks: No Nutritional Risk Poor oral hygiene: No Meds Allergies Allergy/AdvReac Type Severity Reaction Status Date / Time meperidine [From Demerol] Allergy Unknown Verified 03/15/23 14:09 aspirin [ASA] AdvReac Mild Unknown Verified 04/27/23 10:53 Active Medications: Current Medications Lactated Ringer's (Lr) 1,000 mls @ 50 mls/hr IVCONT .Q20H YESSICA Last Admin: 04/27/23 11:04 Dose: 50 mls/hr Home Medications Medication Instructions Recorded Confirmed Last Taken Type acetaminophen 325 mg tablet 325 mg PO QID PRN Pain 06/01/22 04/24/23 Unknown History artificial tears solution eye drops 1 drp ophthalmic (eye) DAILY 06/01/22 04/24/23 Unknown History atorvastatin 20 mg tablet (Lipitor) 20 mg PO BEDTIME 06/01/22 04/24/23 Unknown History divalproex 500 mg tablet,delayed 500 mg PO BID 06/01/22 04/24/23 04/27/23 History release hydrocortisone 2.5 % rectal cream 1 ea NV DAILY 06/01/22 04/24/23 Unknown History with applicator hydroxyzine HCl 25 mg tablet 25 mg PO BEDTIME 06/01/22 04/24/23 Unknown History lactulose 10 gram/15 mL oral 60 ml PO TID 06/01/22 04/24/23 Unknown History solution levetiracetam 500 mg tablet 500 mg PO BID 06/01/22 04/24/23 04/27/23 History levothyroxine 25 mcg tablet 25 mcg PO DAILY 06/01/22 04/24/23 04/27/23 History lidocaine 5 % topical patch 1 patch topical DAILY 06/01/22 04/24/23 Unknown History multivitamin 1 tab PO DAILY 06/01/22 04/24/23 Unknown History ondansetron HCl 4 mg tablet 4 mg PO Q8H 06/01/22 04/24/23 Unknown History rifaximin 550 mg tablet 550 mg PO BID 06/01/22 04/24/23 Unknown History risperidone 1 mg tablet 1 mg PO BID 06/01/22 04/24/23 04/27/23 History rivaroxaban 20 mg tablet (Xarelto) 20 mg PO DAILY 06/01/22 04/24/23 04/23/23 History sennosides 8.6 mg tablet (senna) 8.6 mg PO DAILY 06/01/22 04/24/23 Unknown History sertraline 100 mg tablet 100 mg PO DAILY 06/01/22 04/24/23 04/27/23 History sodium chloride 1 gram tablet 1,000 mg PO TID 06/01/22 04/24/23 Unknown History Exam Exam Date and Time: April 27, 2023 1202 Height,Weight and Vital Signs: Height 5 ft 9 in Weight 110.677 kg Last Vital Signs Temp 98 F 04/27/23 10:34 Pulse 72 04/27/23 10:34 Resp 20 04/27/23 10:34 BP 142/95 H 04/27/23 10:34 Pulse Ox 94 04/27/23 10:34 O2 Del Method Room Air 04/27/23 10:34 Airway Mallampati Class: II TM Dist: >3cm Neck ROM: Limited Heart: rrr Lungs: cta Assessment and Plan Assessment Anesthesia Assessment: Anesthesia Plan Discussed and Chart Reviewed Final Anesthetic Review Family History of Problems with Anesthesia: No History of Problems with Anesthesia: No NPO: Yes ASA Class: IV Final Preanesthetic Review: No Changes in Pt Med Stat, Meds/Allgs Chart Reviewed, Consent Obtained/Reviewed and Anes Risks/Benef Reviewed Patient Risk: Intermediate Procedure Risk: Low Anesthetic Plan Anesthetic Plan: MAC: and Agree w/ Assess. and Plan Disposition: Standard PACU
--- NOTE | 2023-04-27 13:49 | W.PM.OPN ---
Operative Note Operative Note Date of Service: 04/27/23 Narrative: Operative Information Procedure Description: Colonoscopy Indication: screening Anesthesia: MAC COLONOSCOPY Instrument: Olympus variable stiffness ADULT scope 190L Colonoscopy Monitoring: Vital signs and clinical assessment, continuous EKG monitoring, Pulse oximetry, Carbon Dioxide monitoring and blood pressure monitoring were done throughout the procedure. Colon withdrawal time was 10 minutes. Procedure: The patient was placed in the left lateral decubitis position and pre-procedure medications were administered. After a digital rectal examination of the ano-rectum, the video colonoscope was inserted into the rectum and advanced through the colon to the cecum/TI. The colonoscope was slowly withdrawn in a retrograde panoramic fashion and the colon mucosa was carefully examined including a retroflexed view of the rectum. Findings and interventions are described below. Procedure Difficulty: moderate Findings: Terminal Ileum-normal Cecum: 4-6 mm sessile polyp removed with cold forceps Ascending Colon: normal Transverse Colon -normal Descending Colon:normal Sigmoid Colon: normal Rectum: Retroflexion not done due to prep Anorectum - normal Colon preparation: [place] Bowel Preparation Scale Right colon; 1 Transverse colon: 0-1 Left colon; 1 (0 = Unprepared colon segment with mucosa not seen due to solid stool that cannot be cleared. 1 = Portion of mucosa of the colon segment seen, but other areas of the colon segment not well seen due to staining, residual stool and/or opaque liquid. 2 = Minor amount of residual staining, small fragments of stool and/or opaque liquid, but mucosa of colon segment seen well. 3 = Entire mucosa of colon segment seen well with no residual staining, small fragments of stool or opaque liquid) Impression and Post Procedure Diagnosis: poor prep colon polyp Plan: High fiber diet leaflet Avoid straining at stool, epsom salts and sitz bath, anusol supps or cream Repeat Colonoscopy in 3-6 months with prep compliance next time, or 2 d of clears Above findings were reviewed with the patient and relevant handouts were provided if indicated.
[2023-04-27 13:54] VITALS: BP 125/81; PULSE 81; RESP 16; TEMP 36.1; O2SAT 97
[2023-04-27 14:09] VITALS: BP 126/80; PULSE 78; RESP 16; TEMP 36.2; O2SAT 97
== END 2023-04-27 14:39 | disposition home or self-care (01) ==
PROVIDERS: PCP Hospitalist; Visit Provider Internal Medicine Gastroenterology
PROC: 0DJD8ZZ Inspection of Lower Intestinal Tract, Via Natural or Artificial Opening Endoscopic (ICD-10-PCS; CPT 45378; principal; 2023-04-27 12:40)
DX: Z12.11 Encounter for screening for malignant neoplasm of colon (principal); D12.0 Benign neoplasm of cecum; I10 Essential (primary) hypertension; B18.2 Chronic viral hepatitis C; G40.909 Epilepsy, unspecified, not intractable, without status epilepticus; Z86.73 Personal history of transient ischemic attack (TIA), and cerebral infarction without residual deficits; Z86.718 Personal history of other venous thrombosis and embolism
CPT/HCPCS: 45380; 88305

== ENCOUNTER 2023-06-27 07:47 | Outpatient (REF) | payer MEDICARE, MEDICAID, SELFPAY ==
--- NOTE | ~2023-06-27 | CT_ITS ---
EXAMINATION: CT CHEST WITHOUT CONTRAST CLINICAL INFORMATION: Follow-up pulmonary nodule COMPARISON: CTA June 2022 and abdominal and pelvic CT March 2023 TECHNIQUE: Multidetector volumetric CT imaging of the chest was done. Axial MIP volume rendering provided. Sagittal and coronal reformatted images were obtained. This CT examination was performed using dose optimization techniques as appropriate, variously including the following: *Automated exposure control *Adjustment of mA and/or kV according to patient size (this includes techniques or standardized protocols for targeted exams where dose is matched to indication/reason for exam; i.e. 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 This probably represents a subpleural lymph node. Elevated right hemidiaphragm. Subsegmental atelectasis at the lung bases. MEDIASTINUM: Small mediastinal lymph nodes. No enlarged lymph nodes. Normal heart size. No pericardial effusion. Slightly dilated thoracic aorta. Ascending thoracic aorta measures 4.2 cm. Descending thoracic aorta measures 3.3 cm. CORONARY ARTERY CALCIFICATION: Mild PLEURA: There is no pleural effusion. No pleural mass or thickening. AXILLA: Small bilateral axillary lymph nodes. Bilateral symmetric gynecomastia. UPPER ABDOMEN: Enlarged cardiophrenic angle or anterior diaphragmatic lymph nodes. Largest lymph node measures 1.5 cm in short axis. Cirrhotic-appearing liver. Gallstones. Question absent spleen and splenule. Calcification in the [facility]. Findings are similar to previous exams. Postsurgical changes to the upper abdominal wall. OSSEOUS STRUCTURES: Degenerative changes of the spine. CT/CT chest wo IV con IMPRESSION: Stable 1 cm right middle lobe nodule probably representing a subpleural lymph node. No imaging follow-up recommended. Slightly dilated thoracic aorta. Stable abdominal findings including cirrhosis and gallstones.. Fleischner guidelines were followed.
== END 2023-06-27 07:48 | disposition home or self-care (01) ==
LOC: HO.CT 07:47
PROVIDERS: PCP Hospitalist; Visit Provider Hospitalist
DX: R91.1 Solitary pulmonary nodule (principal)
CPT/HCPCS: 71250

== ENCOUNTER 2023-07-03 10:49 | Outpatient (REF) | payer MEDICARE, MEDICAID, SELFPAY ==
--- NOTE | 2023-07-03 12:49 | MHC.AU.HA1 ---
Hearing Aid Evaluation Date of Visit: 07/03/23 Historical Information: Description of Hearing: Right Ear: Mild sloping to moderately-severe sensorineural hearing loss; Left Ear: Mild sloping to profound sensorineural hearing loss Summary: Carlos had his hearing retested at [facility], [facility], & [place] and was provided medical clearance for hearing aids. Carlos reported that he has communication difficulties in all listening environments including while watching television and communication one-on-one especially if there is background noise. 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 Initially, Carlos was interested in a custom hearing aid for cosmetic reasons as he thought it would be less noticeable. However, after demonstrating how each hearing aid looks on his ears (ITC vs RITE), Carlos opted for a RITE hearing aid. He also has a flip phone. Hearing Aid Prescription: Based on the individual?s shared listening needs, communication environments, dexterity, desire for connectivity, and personal preferences, the following prescription for amplification has been made: Right ear: Iftikhar, Model, Color: Phonak Audeo L70-R Color: Black Battery Size: Rechargeable School Lunch Monitor/Slim Tube: 1M Type of Earmold/Dome/CShell/SlimTip: Small power dome Left ear: Left ear prescription to be same as Right Hearing Aid above: Make, Model, Color: Phonak Audeo L70-R Color: Black Battery Size: Rechargeable School Lunch Monitor/Slim Tube: 1M Type of Earmold/Dome/CShell/SlimTip: Small power dome Accessories/Assistive Technology Recommended: Permanent Waver Plan of Care: Patient wishes to purchase hearing aids as prescribed Action Taken/Action Needed: Hearing Instrument Fitting to be scheduled when materials arrive Comments: Email Judy with account # for the hearing aid fitting appointment so she can track billing/payment with [place]. Primary Diagnosis: H90.3 Bilateral Sensorineural Hearing Loss Signature: Provider: Leoncio Mckeon, [facility]
== END 2023-07-03 10:50 | disposition home or self-care (01) ==
LOC: HO.HAP 10:49
PROVIDERS: Visit Provider Otolaryngology
DX: Z46.1 Encounter for fitting and adjustment of hearing aid (principal); H90.3 Sensorineural hearing loss, bilateral
CPT/HCPCS: 92591

== ENCOUNTER 2023-07-19 09:02 | Outpatient (REF) | payer MEDICARE, MEDICAID, SELFPAY ==
--- NOTE | ~2023-07-19 | XR_ITS ---
EXAMINATION: XR FINGER, LEFT CLINICAL INFORMATION: Left thumb pain. Decreased range of motion. Fall. COMPARISON: None available. TECHNIQUE: PA view of the left hand as well as bilateral oblique and lateral views of the left thumb. FINDINGS: Mildly comminuted and displaced fracture along the volar/ulnar aspect of the 1st proximal phalangeal base with the resultant fracture gap measuring up to 0.2 cm. This appears to contact the periphery of the articular surface. Findings could represent an avulsion fracture related to an ulnar collateral ligament injury. No additional fracture. No dislocation. Joint space narrowing with tiny marginal osteophyte scattered throughout the metacarpophalangeal and interphalangeal joints. No osseous erosion. XR/XR finger LT min 2V IMPRESSION: Mildly comminuted and displaced fracture along the volar/ulnar aspect of the first proximal phalangeal base which contacts the periphery of the articular surface. Findings could represent an avulsion fracture related to an ulnar collateral ligament injury.
== END 2023-07-19 09:03 | disposition home or self-care (01) ==
LOC: HO.XRAY 09:02
PROVIDERS: PCP Hospitalist; Visit Provider Hospitalist
DX: Z13.89 Encounter for screening for other disorder (principal)
CPT/HCPCS: 73140

== ENCOUNTER 2023-07-19 12:26 | Emergency (ER) | payer MEDICARE, MEDICAID, SELFPAY ==
--- NOTE | 2023-07-19 12:34 | ED.UPPEXIN ---
HPI - Extremity Injury (Upper) General Chief Complaint: Extremity Injury, Upper Stated Complaint: L THUMB PAIN/SWELLING S/P FALL T-1 @SNF PER EMS Time Seen by Provider: 07/19/23 12:33 Source: EMS and old records reviewed Mode of arrival: EMS Limitations: no limitations History of Present Illness HPI narrative: 63-year-old male with history of dementia, seizure disorder, hepatitis-C, polysubstance abuse, BPH, hx frequent falls who presnets to the ER from [facility] for evaluation of a left thumb fracture after he tripped and fell yesterday. He states he stuck his left hand out to stop his fall and bent his thumb backwards. It has been swollen and bruised since with limited flexion due to pain. XR today showed fracture. He was sent into the ER for splinting and Ortho referral. MD complaint: injury to: left and finger Onset (ago): day(s) (1) Other injuries: none Place: home Severity: moderate Relieving factors: rest Exacerbating factors: movement of extremity Context: fall Associated symptoms: denies other symptoms Related Data Home Medications Medication Instructions Recorded Confirmed acetaminophen 325 mg tablet 325 mg PO QID PRN Pain 06/01/22 07/19/23 artificial tears solution eye drops 1 drp ophthalmic (eye) Q8H PRN Dry 06/01/22 07/19/23 Eye(S) atorvastatin 20 mg tablet (Lipitor) 20 mg PO BEDTIME 06/01/22 07/19/23 divalproex 500 mg tablet,delayed 500 mg PO BID 06/01/22 07/19/23 release hydroxyzine HCl 25 mg tablet 25 mg PO Q6H 06/01/22 07/19/23 lactulose 10 gram/15 mL oral 90 ml PO BID 06/01/22 07/19/23 solution levetiracetam 500 mg tablet 500 mg PO BID 06/01/22 07/19/23 levothyroxine 25 mcg tablet 25 mcg PO DAILY 06/01/22 07/19/23 lidocaine 5 % topical patch 1 patch topical Q8H PRN chronic 06/01/22 07/19/23 pain multivitamin 1 tab PO DAILY 06/01/22 07/19/23 ondansetron HCl 4 mg tablet 4 mg PO Q8H 06/01/22 07/19/23 rifaximin 550 mg tablet 550 mg PO BID 06/01/22 07/19/23 risperidone 1 mg tablet 1 mg PO BID 06/01/22 07/19/23 rivaroxaban 20 mg tablet (Xarelto) 20 mg PO DAILY 06/01/22 07/19/23 sennosides 8.6 mg tablet (senna) 8.6 mg PO DAILY 06/01/22 07/19/23 sertraline 100 mg tablet 100 mg PO DAILY 06/01/22 07/19/23 sodium chloride 1 gram tablet 1,000 mg PO TID 06/01/22 07/19/23 folic acid 1 mg tablet 1 mg PO DAILY 07/19/23 07/19/23 sodium chloride 0.65 % nasal spray 2 spray intranasal Q2H PRN nasal 07/19/23 07/19/23 aerosol (Saline Nasal) dryness Previous Rx's Medication Instructions Recorded tamsulosin 0.4 mg capsule 0.8 mg (2 x 0.4 mg) PO BEDTIME 90 10/27/22 days #180 caps Allergies Allergy/AdvReac Type Severity Reaction Status Date / Time meperidine [From Demerol] Allergy Unknown Verified 03/15/23 14:09 aspirin [ASA] AdvReac Mild Unknown Verified 04/27/23 10:53 Review of Systems Review of Systems: Yes all other systems are reviewed and are negative [facility] Past Medical History Medical History (Updated 07/19/23 @ 12:37 by ANJELICA Parker) Skin lesions, generalized DVT (deep venous thrombosis) Resides in alf facility CVA (cerebral vascular accident) Hypothyroid Dementia Chronic hepatitis BPH (benign prostatic hyperplasia) Transaminitis Alcohol abuse Skin lesions Seizure disorder Hypertension Polysubstance (excluding opioids) dependence with physiological dependence Surgical History S/P insertion of inferior vena caval filter H/O splenectomy Family History Family History Mother Cancer Social History Social History Household Members Other:: resides @ [phone] Housing Other:: resides at [facility] [phone] Are you a primary physician locums urgent care to a significant other at home: No Do you presently have visiting nurse or other home services: Yes ([facility] staff) Alcohol intake: former Patient Tobacco Use Status: Current everyday Tobacco user Tobacco use type: Cigarette Cigarettes Per Day: 4 Advance Directives: No Advance Directives Information Provided: Yes Physical Exam Vital Signs: Vital Signs: Last Vital Signs Temp 97.7 F 07/19/23 12:38 Pulse 72 07/19/23 12:38 Resp 16 07/19/23 12:38 BP 145/80 H 07/19/23 12:38 Pulse Ox 97 07/19/23 12:38 O2 Del Method Room Air 07/19/23 12:38 BMI result Body Mass Index 34.8 Appearance: Alert. Oriented X3. No acute distress. HEENT: normal inspection CVS: Normal heart rate and rhythm. Pulses normal. Respiratory: No respiratory distress. Skin: Skin warm and dry. Normal skin color. Normal skin turgor. No rashes. Extremities: left thumb with ecchymosis, swelling, of the IP joint, tender, limited flexion and limited thumb opposition to 3rd, 4th and 5th digits. no snuffbox tenderness. 2+ radial pulse. cap refill <3 sec. Neuro: Oriented X 3. No motor deficit. No sensory deficit. Medical Decision Making Medical Decision Making MDM Narrative: 63 yo male presenting w/ left thumb fracture s/p fall yesterday. XR reviewed thumb spica splint applied, patient tolerated well and felt much better in immobilization. Pain significantly improved. Stable for discharge back to [facility] with splint in place and orthopedic follow-up. Differential Diagnosis Differential Diagnoses: The differential diagnosis associated with the presentation includes Thumb fracture, thumb sprain, contusion, ligamentous injury Consult Healthcare Provider Management of the patient was discussed with: Crystal Inspector Gely from Orthopedics sent TT of x-ray and need for outpatient follow up Independent Interpretation I performed an independent interpretation of an: Plain X-Ray Interpretation: small fracture noted, agree w/ radiology read Radiology Impression Discussion of test interpretation with radiology: I have reviewed the radiologist's reading. Radiologist Impression: XR/XR finger LT min 2V IMPRESSION: Mildly comminuted and displaced fracture along the volar/ulnar aspect of the first proximal phalangeal base which contacts the periphery of the articular surface. Findings could represent an avulsion fracture related to an ulnar collateral ligament injury. Independent Historian Clinical information obtained from an independent historian. History obtained from or confirmed by: EMS External Record Review External record reviewed: Outpatient record, Prior outpatient labs and Prior outpatient radiology Prescription Management I considered prescription management with: Pain Medication Chronic Conditions Patient?s care impacted by: Hypertension Procedures Orthopedic Splinting/Casting Injury #1: Side: left Upper Extremity Injury Location: hand and finger Upper Extremity Immobilizer: thumb spica Critical Care Time Critical Care Time Critical Care Time: No Discharge Plan Discharge Clinical Impression: Avulsion fracture of thumb Qualifiers: Encounter type: initial encounter Fracture type: closed Laterality: left Qualified Code(s): S62.502A - Fracture of unspecified phalanx of left thumb, initial encounter for closed fracture Patient Disposition: er SNF Instructions: Thumb Fracture (ED) Additional Instructions: wear the applied splint until you see Orthopedics - name and number attached to arrange follow up take tylenol as needed for pain If you develop new or worsening symptoms call 911 or come back to the ER for further evaluation. Prescriptions: No Action folic acid 1 mg tablet 1 mg PO DAILY Saline Nasal 0.65 % Aerosol,[place] 2 spray INTRANASAL Q2H PRN (Reason: nasal dryness) acetaminophen 325 mg tablet 325 mg PO QID PRN (Reason: Pain) artificial tears solution Drops 1 drp ophthalmic (eye) Q8H PRN (Reason: Dry Eye(S)) divalproex 500 mg tablet,delayed release (DR/EC) 500 mg PO BID hydroxyzine HCl 25 mg tablet 25 mg PO Q6H lactulose 10 gram/15 mL solution 90 ml PO BID levetiracetam 500 mg tablet 500 mg PO BID levothyroxine 25 mcg tablet 25 mcg PO DAILY lidocaine 5 % adhesive patch,medicated 1 patch topical Q8H PRN (Reason: chronic pain) Rx Instructions: leave on most painful area for up to 12 hrs multivitamin Tablet 1 tab PO DAILY atorvastatin [Lipitor] 20 mg tablet 20 mg PO BEDTIME ondansetron HCl 4 mg tablet 4 mg PO Q8H rifaximin 550 mg tablet 550 mg PO BID risperidone 1 mg tablet 1 mg PO BID sennosides [senna] 8.6 mg tablet 8.6 mg PO DAILY sertraline 100 mg tablet 100 mg PO DAILY sodium chloride 1 gram tablet 1,000 mg PO TID Xarelto 20 mg tablet 20 mg PO DAILY Rx Instructions: must administer with evening meal tamsulosin 0.4 mg capsule 0.8 mg PO BEDTIME 90 Days Qty: 180 3RF Referrals: [facility] Orthopedic Surgeons [Provider Group] (XR/XR finger LT min 2V IMPRESSION: Mildly comminuted and displaced fracture along the volar/ulnar aspect of the first proximal phalangeal base which contacts the periphery of the articular surface. Findings could represent an avulsion fracture related to an ulnar collateral ligament injury.)
[2023-07-19 12:38] VITALS: BP 145/80; PULSE 72; RESP 16; TEMP 36.5; O2SAT 97; BMI 34.8
--- NOTE | 2023-07-19 12:39 | PHA.MEDREC ---
Pharmacy Consult ? Medication Reconciliation Pharmacy has completed the medication reconciliation. Patient came from [facility] with med list. Loyda Garcia, BiancaD
[2023-07-19] MEDS: Acetaminophen 325 MG TABLET 975 MG PO (16:14)
--- NOTE | 2023-07-19 16:21 | PC.NURSE ---
Spoke with Pavel at [facility] to give a nurse to nurse report and also regarding a ride for patient. Pavel stated that [facility] was unable to give patient a ride at this time and it was his understanding that this facility would get the patient transportation back to facility. Ambulance has been booked for patient and will be able to get patient at 1730. Patient informed of this and offered food and water at this time.
[2023-07-19 18:25] VITALS: BP 135/81; PULSE 80; RESP 17; O2SAT 97
== END 2023-07-19 18:28 | disposition skilled nursing facility (03) ==
PROVIDERS: Emergency Provider Emergency Medicine; PCP Hospitalist
DX: S62.502A Fracture of unspecified phalanx of left thumb, initial encounter for closed fracture (principal); W01.0XXA Fall on same level from slipping, tripping and stumbling without subsequent striking against object, initial encounter; Y93.9 Activity, unspecified; Y92.9 Unspecified place or not applicable; Y99.9 Unspecified external cause status; Z79.899 Other long term (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; F17.210 Nicotine dependence, cigarettes, uncomplicated; Z71.6 Tobacco abuse counseling
CPT/HCPCS: 29130; 73140; 99284

== ENCOUNTER 2023-07-25 09:49 | Outpatient (AMB) | payer MEDICARE, MEDICAID, SELFPAY ==
[2023-07-25 09:54] VITALS: BMI 34.7
--- NOTE | 2023-07-25 09:54 | A.OFFVIS_ITS ---
Intake Vital Signs 07/25/23 09:54 Height 5 ft 10 in Weight 242 lb BMI 34.7 Intake Visit Reasons: FC - left thumb fx, DOI 07/18/23 Intake Note: Carlos is a 63 year old right hand dominant male who presents today for a evaluation of his left thumb fx, DOI 07/18/23. Patient reports he tripped and fell landing on his left hand. He states that his thumb is in throbbing pain, also having tingling. Allergies meperidine [From Demerol] Allergy (Verified 07/25/23 09:54) Unknown aspirin [ASA] Adverse Reaction (Mild, Verified 07/25/23 09:54) Unknown HPI FC - left thumb fx, DOI 07/18/23 HPI Details 63-year-old right hand dominant male who presents in the office today, as a new patient, for an evaluation of left thumb pain. The patient presented to the ED on 07/19/2023 status post a trip and fall that occurred on 07/18/2023. He states he stuck his left hand out to stop his fall and bent his thumb backwards, per the ED note. X-rays of the left hand were obtained. He was placed in a splint and discharged to [facility]. While in the office today the patient confirms he tripped and fell on his left hand. He reports throbbing pain with tingling in the left thumb. [facility] Medical History (Updated 07/25/23 @ 10:25 by Kristan Patel) Skin lesions, generalized DVT (deep venous thrombosis) Resides in residential facility CVA (cerebral vascular accident) Hypothyroid Dementia Chronic hepatitis BPH (benign prostatic hyperplasia) Transaminitis Alcohol abuse Skin lesions Seizure disorder Hypertension Polysubstance (excluding opioids) dependence with physiological dependence Surgical History S/P insertion of inferior vena caval filter H/O splenectomy Family History Mother Cancer Social History [phone] Are you a primary child care center administrator to a significant other at home: No Do you presently have visiting nurse or other home services: Yes ([facility] staff) Alcohol intake: never Patient Tobacco Use Status: Current everyday Tobacco user Tobacco use type: Cigarette Cigarettes Per Day: 4 Review of Systems Const All systems reviewed & are unremarkable except as noted in HPI and below Physical Exam Vital Signs: BMI result Body Mass Index 34.7 Const General: cooperative and no acute distress Orientation/consciousness: patient oriented x3 Resp Effort & Inspection: normal respiratory effort and able to speak in complete sentences Cardio Peripheral pulses: Peripheral pulses 2+ throughout Skin General skin exam: no rashes or lesions noted Neuro General: patient oriented x3 Extrem Other: Left thumb: Resolving ecchymosis on the dorsal aspect of the IP joint. Able to flex and extend at the IP and CMC joints. Sensation intact. Capillary refill intact. No nail bed involvement. Able to make a full fist and perform full finger extension, flexion, abduction, adduction, finger cross and OK sign with no deficits or difficulties. Left wrist: No snuffbox tenderness. Able to flex and extend the wrist to end range with mild discomfort. Assessment & Plan Assessment & Plan (1) Avulsion fracture of left thumb: Code(s): S62.502A - Fracture of unspecified phalanx of left thumb, initial encounter for closed fracture Qualifiers: Encounter type: initial encounter Fracture type: closed Qualified Code(s): S62.502A - Fracture of unspecified phalanx of left thumb, initial encounter for closed fracture Plan Mr. Toribio is a 63-year-old right hand dominant male who presents in the office today, as a new patient, for an evaluation of left thumb pain. The patient presented to the ED on 07/19/2023 status post a trip and fall that occurred on 07/18/2023. He states he stuck his left hand out to stop his fall and bent his thumb backwards, per the ED note. X-rays of the left hand were obtained. He was placed in a splint and discharged to [facility]. While in the office today the patient confirms he tripped and fell on his left hand. He reports throbbing pain with tingling in the left thumb. The patient was placed in a comfort cool, off the shelf, brace while in the office today. He was educated on heavy lifting greater than a coffee cup or cell phone. He is to work on gentle ROM of the wrist and other digits. Follow up will be in 3 weeks with repeat x-rays, or sooner if needed. X-rays of the left thumb obtained while in the office today and reviewed by me, Karen Parker PA-C, revealed left thumb avulsion fracture at the proximal phalanx with routing healing. X-rays of the left hand, obtained on 07/19/2023, revealed: Mildly comminuted and displaced fracture along the volar/ulnar aspect of the first proximal phalangeal base which contacts the periphery of the articular surface. Findings could represent an avulsion fracture related to an ulnar collateral ligament injury. Orders: Orders XR hand LT min 3V Today M79.643 - Pain in unspecified hand Patient Instructions: Scribed for Karen Parker PA-C by Kristan Patel medical investigator, on 07/25/2023 at 9:51 am, EST. Coding Level of Care Code New Pt Level 4 (22565) Diagnoses Closed avulsion fracture of phalanx of left thumb, initial encounter S62.502A Encounter type: initial encounter Fracture type: closed
== END 2023-07-25 10:35 | disposition home or self-care (01) ==
PROVIDERS: PCP Hospitalist; Visit Provider Physician Assistant
DX: S62.512A Displaced fracture of proximal phalanx of left thumb, initial encounter for closed fracture (principal)
CPT/HCPCS: 99203

== ENCOUNTER 2023-07-25 10:25 | Outpatient (REF) | payer MEDICARE, MEDICAID, SELFPAY | END 2023-07-25 10:26 | disposition home or self-care (01) | LOC: HO.HOSX 10:25 | PROVIDERS: Visit Provider Physician Assistant | DX: S62.502A Fracture of unspecified phalanx of left thumb, initial encounter for closed fracture (principal) | CPT/HCPCS: 73130; 99202 ==

== ENCOUNTER → 2023-08-09 13:55 | Outpatient (BNV) | payer MEDICARE, MEDICAID, SELFPAY | PROVIDERS: PCP Hospitalist; Visit Provider Internal Medicine | DX: D64.9 Anemia, unspecified (principal) | CPT/HCPCS: 99204; 99213 ==

== ENCOUNTER 2023-08-17 09:41 | Outpatient (AMB) | payer MEDICARE, MEDICAID, SELFPAY ==
--- NOTE | 2023-08-17 09:45 | A.OFFVIS_ITS ---
Intake Intake Visit Reasons: ov-left thumb fx, DOI 07/18/23 Intake Note: Carlos 63 yr old male presents today for his follow up visit for his fracture of phalanx of left thumb DOI 07/18. Xrays updated in office. Patient reports intermittent ache at his CMC. States discomfort with wearing brace. Allergies meperidine [From Demerol] Allergy (Verified 08/17/23 09:52) Unknown aspirin [ASA] Adverse Reaction (Mild, Verified 08/17/23 09:52) Unknown HPI ov-left thumb fx, DOI 07/18/23 HPI Details 63-year-old male who presents in the off ice today for a follow up of left thumb avulsion fracture, which occurred on 07/18/2023 status post a trip and fall. The patient states he is working on his hand exercises and has noticed improvement. He confirms achiness over the IP joint of the left thumb. He states he is taking his pain medication, oxycodone, once to twice a day and he only takes it when he needs it. [facility] Medical History (Updated 08/09/23 @ 15:48 by Annie Ledbetter MD) Skin lesions, generalized DVT (deep venous thrombosis) Resides in correction facility CVA (cerebral vascular accident) Hypothyroid Dementia Chronic hepatitis BPH (benign prostatic hyperplasia) Transaminitis Alcohol abuse Skin lesions Seizure disorder Hypertension Polysubstance (excluding opioids) dependence with physiological dependence Surgical History (Updated 08/09/23 @ 14:25 by Annie Ledbetter MD) S/P insertion of inferior vena caval filter H/O splenectomy Family History Mother Cancer Social History Household Members Other:: resides @ [phone] Housing Other:: resides at [facility] [phone] Are you a primary care program director to a significant other at home: No Do you presently have visiting nurse or other home services: Yes ([facility] staff) Alcohol intake: never Patient Tobacco Use Status: Current everyday Tobacco user Tobacco use type: Cigarette service: No Current occupational status: disabled Review of Systems Const All systems reviewed & are unremarkable except as noted in HPI and below Physical Exam Const General: cooperative, healthy appearing and no acute distress Resp Effort & Inspection: normal respiratory effort and able to speak in complete sentences Cardio Rate: regular rate Peripheral pulses: Peripheral pulses 2+ throughout GI Palpation (GI): Soft to palpation Skin Lesions: no lesions Rashes: no rashes Extrem Other: Left thumb: Full ROM of left thumb without deficits or pain. No tenderness to palpation over the CMC, PIP, or DIP joints. No laxity with varus or valgus stress. Sensation intact. Capillary refill brisk. Assessment & Plan Assessment & Plan (1) Avulsion fracture of left thumb: Code(s): S62.502A - Fracture of unspecified phalanx of left thumb, initial encounter for closed fracture Qualifiers: Encounter type: initial encounter Fracture type: closed Qualified Code(s): S62.502A - Fracture of unspecified phalanx of left thumb, initial encounter for closed fracture Plan Mr. Toribio is a 63-year-old male who presents in the office today for a follow up of left thumb avulsion fracture, which occurred on 07/18/2023 status post a trip and fall. The patient states he is working on his hand exercises and has noticed improvement. He confirms achiness over the IP joint of the left thumb. He states he is taking his pain medication, oxycodone, once to twice a day and he only takes it when he needs it. The patient needs to remain in the brace for 2 more weeks. After that he can begin to wean out of the brace. Follow up will be in 4 weeks with anticipation of a final x-ray, or sooner if needed. X-rays of the left thumb obtained while in the office today and reviewed by me, Karen Parker PA-C, revealed routine healing of a left thumb avulsion fracture. Orders: Orders XR hand LT min 3V Today M79.643 - Pain in unspecified hand Patient Instructions: Scribed for Karen Parker PA-C by Kristan Patel medical consultant, on 08/17/2023 at 9:43 am, EST. Coding Level of Care Code Global (47111) Diagnoses Closed avulsion fracture of phalanx of left thumb, initial encounter S62.502A Encounter type: initial encounter Fracture type: closed
== END 2023-08-17 10:53 | disposition home or self-care (01) ==
PROVIDERS: PCP Hospitalist; Visit Provider Physician Assistant
DX: S62.502D Fracture of unspecified phalanx of left thumb, subsequent encounter for fracture with routine healing (principal)
CPT/HCPCS: 99213

== ENCOUNTER 2023-08-17 15:35 | Outpatient (REF) | payer MEDICARE, MEDICAID, SELFPAY ==
--- NOTE | ~2023-08-17 | XR_ITS ---
EXAMINATION: XR HAND, LEFT CLINICAL INFORMATION: Pain in unspecified hand. COMPARISON: 07/25/2023 TECHNIQUE: 4 views of the left hand. FINDINGS: The bones are diffusely demineralized. Moderate degenerative changes first carpometacarpal joint with joint space narrowing and hypertrophic change. Degenerative changes with narrowing of the fourth DIP joint. Redemonstration of a mildly displaced avulsion fracture at the base of the proximal phalanx of the thumb with intra-articular extension. Fracture line is still visible. No significant callus formation identified. XR/XR hand LT min 3V IMPRESSION: Redemonstration of a mildly displaced avulsion fracture at the base of the proximal phalanx of the thumb with intra-articular extension. Fracture line is still visible. No significant callus formation identified.
== END 2023-08-17 15:36 | disposition home or self-care (01) ==
LOC: HO.HOSX 15:35
PROVIDERS: Visit Provider Physician Assistant
DX: S62.502D Fracture of unspecified phalanx of left thumb, subsequent encounter for fracture with routine healing (principal); M79.642 Pain in left hand; W19.XXXD Unspecified fall, subsequent encounter
CPT/HCPCS: 73130; 99212

== ENCOUNTER 2023-08-29 07:57 | Outpatient (REF) | payer MEDICARE, MEDICAID, SELFPAY ==
--- NOTE | ~2023-08-29 | US_ITS ---
EXAMINATION: US ABDOMEN COMPLETE CLINICAL INFORMATION: Hepatic failure. Hepatomegaly. COMPARISON: CT abdomen 03/23/2023 TECHNIQUE: Real-time imaging of the abdominal viscera. FINDINGS: PANCREAS: Visualized portions of the pancreas are unremarkable however portions are obscured by bowel gas limiting evaluation. ABDOMINAL AORTA: Visualized portions are normal in caliber. INFERIOR VENA CAVA: Visualized portions are normal. LIVER: Liver is enlarged measuring 22.6 cm in span. The liver contour is normal. Increased hepatic echogenicity which can be seen in the setting of hepatic steatosis or underlying liver disease. No focal hepatic lesion. There is no intrahepatic biliary duct dilatation seen. GALLBLADDER: The gallbladder is physiologically distended. Multiple mobile gallstones are present. No evidence of gallbladder wall thickening or pericholecystic fluid. Negative sonographic Herndon sign. COMMON BILE DUCT: Normal in caliber measuring 0.28 cm in diameter. RIGHT KIDNEY: Normal. No hydronephrosis. No renal calculi or focal parenchymal lesions. The kidney measures 13.3 cm in maximum dimension. LEFT KIDNEY: Normal. No hydronephrosis. No renal calculi or focal parenchymal lesions. The kidney measures 14.1 cm in maximum dimension. SPLEEN: Surgically absent. FREE FLUID: None. US/US abdomen complete IMPRESSION: 1. Hepatomegaly. Increased hepatic echogenicity which can be seen in the setting of hepatic steatosis or underlying liver disease. 2. Cholelithiasis without evidence of acute cholecystitis. 3. Status post splenectomy.
== END 2023-08-29 07:58 | disposition home or self-care (01) ==
LOC: HO.US 07:57
PROVIDERS: Visit Provider Internal Medicine
DX: R16.0 Hepatomegaly, not elsewhere classified (principal); K72.90 Hepatic failure, unspecified without coma
CPT/HCPCS: 76700

== ENCOUNTER 2023-09-05 13:09 | Outpatient (REF) | payer MEDICARE, MEDICAID, SELFPAY ==
--- NOTE | 2023-09-05 15:19 | MHC.AU.HA2 ---
Hearing Instrument Fitting- Adult- Binaural Date of Visit: 09/05/23 Hearing Instruments Dispensed: Right Ear: Iftikhar, Model, Color, Serial Number: Ronnie Palma [id number] SN: [id number] Color: Black [employer] Repair Warranty: 09/30/2026 [employer] Loss and Damage Warranty: 09/30/2026 [facility] Service Plan: 09/05/2024 Battery Size: Rechargeable Simonizer/Slim Tube: 1M Earmold/Dome/CShell/SlimTip: Small power dome (no retention tail) Type of Wax Guard: CeruShield Left Ear: Make, Model, Color, Serial Number: Ronnie Silverioo [id number] SN: [id number] Color: Black [employer] Effects Repair Warranty: 09/30/2026 [employer] Loss and Damage Warranty: 09/30/2026 [facility] Service Plan: 09/05/2024 Battery Size: Rechargeable Simonizer/Slim Tube: 1M Earmold/Dome/CShell/SlimTip: Small power dome (no retention tail) Type of Wax Guard: CeruShield Disk Accessories/Assistive Technology: Phonak Fire Equipment Inspector Ease SN: [id number] Summary of Fitting: Ran feedback analyzer and real ear measures. Changed occlusion compensation to medium due to perception of own voice. Otherwise, sound quality comfortable at real ear settings. Discussed care, use, and rechargeability including manually turning on/off and changing domes and wax guards. Carlos had some difficulty inserting the hearing aids; however, he reported the he has nurses that can help him. Explained the importance of daily, consistent use. Carlos seemed motivate to use and acclimate to the hearing aids. Did not discuss bluetooth compatibility. Carlos currently has a flip phone. He reported that he will be getting an iPhone soon and will be interested in bluetooth at that time. Recommendations: A hearing instrument follow-up was scheduled. Diagnosis Code(s): Primary Diagnosis: H90.3 Bilateral Sensorineural Hearing Loss Signature: Provider: Leoncio Mckeon, [facility]
== END 2023-09-05 13:10 | disposition home or self-care (01) ==
LOC: HO.HAP 13:09
PROVIDERS: Visit Provider Hospitalist
DX: Z46.1 Encounter for fitting and adjustment of hearing aid (principal); H90.3 Sensorineural hearing loss, bilateral
CPT/HCPCS: V5011; V5020; V5160; V5261

== ENCOUNTER 2023-09-19 10:36 | Outpatient (REF) | payer MEDICARE, MEDICAID, SELFPAY ==
--- NOTE | ~2023-09-19 | XR_ITS ---
EXAMINATION: XR HAND, LEFT CLINICAL INFORMATION: Reason for Exam M79.643 - Pain in unspecified hand COMPARISON: Radiographs 08/17/2023 TECHNIQUE: AP, lateral, and oblique views of the hand FINDINGS: Again seen is a mildly displaced avulsion fracture at the base of the first proximal phalanx with intra-articular extension with minimal bridging bony callus remission inferiorly and persistent lucency of the fracture margin superiorly. Moderate degenerative changes of the hand wrist involving the fourth DIP joint where there is loss of joint space and bulky osteophytes. No soft tissue abnormality. XR/XR hand LT min 3V IMPRESSION: Again seen is a mildly displaced avulsion fracture at the base of the first proximal phalanx with intra-articular extension with minimal bridging bony callus remission inferiorly and persistent lucency of the fracture margin superiorly.
== END 2023-09-19 10:37 | disposition home or self-care (01) ==
LOC: HO.HOSX 10:36
PROVIDERS: Visit Provider Physician Assistant
DX: S62.502D Fracture of unspecified phalanx of left thumb, subsequent encounter for fracture with routine healing (principal)
CPT/HCPCS: 73130; 99212

== ENCOUNTER 2023-09-19 12:31 | Outpatient (AMB) | payer MEDICARE, MEDICAID, SELFPAY ==
--- NOTE | 2023-09-19 13:00 | MHC.OFFVIS ---
Intake Vital Signs 09/19/23 13:05 Height 5 ft 9 in Weight 236 lb BMI 34.8 Intake Visit Reasons: ov-left thumb fx, DOI 07/18/23 Intake Note: Carlos 63 yr old male presents today for his follow up visit for his fracture of phalanx of left thumb DOI 07/18. Xrays updated in office. Patient reports he feels a bit better from our last visit however still having some pain here and there with certain movements. Allergies meperidine [From Demerol] Allergy (Verified 09/19/23 13:05) Unknown aspirin [ASA] Adverse Reaction (Mild, Verified 09/19/23 13:05) Unknown HPI ov-left thumb fx, DOI 07/18/23 HPI Details 63-year-old male who presents in the office today for a follow up of left thumb avulsion fracture, which occurred on 07/18/2023 status post a trip and fall. The patient reports he feels a bit better since his last visit. However, he is still having some pain intermittently with certain movements. [facility]LY [facility] Medical History Skin lesions, generalized DVT (deep venous thrombosis) Resides in care home facility CVA (cerebral vascular accident) Hypothyroid Dementia Chronic hepatitis BPH (benign prostatic hyperplasia) Transaminitis Alcohol abuse Skin lesions Seizure disorder Hypertension Polysubstance (excluding opioids) dependence with physiological dependence Surgical History S/P insertion of inferior vena caval filter H/O splenectomy Family History Mother Cancer Social History [phone] Are you a primary personal care home administrator to a significant other at home: No Do you presently have visiting nurse or other home services: Yes ([facility] staff) Alcohol intake: never Patient Tobacco Use Status: Current everyday Tobacco user Tobacco use type: Cigarette service: No Current occupational status: disabled Review of Systems Const All systems reviewed & are unremarkable except as noted in HPI and below Physical Exam Vital Signs: BMI result Body Mass Index 34.8 Const General: cooperative, healthy appearing and no acute distress Resp Effort & Inspection: normal respiratory effort and able to speak in complete sentences Cardio Rate: regular rate Peripheral pulses: Peripheral pulses 2+ throughout GI Palpation (GI): Soft to palpation Skin Lesions: no lesions Rashes: no rashes Extrem Other: Left thumb: Full ROM of left thumb without deficits or pain. No tenderness to palpation over the CMC, PIP, or DIP joints. No laxity with varus or valgus stress. Sensation intact. Capillary refill brisk. Assessment & Plan Assessment & Plan (1) Avulsion fracture of left thumb: Code(s): S62.502A - Fracture of unspecified phalanx of left thumb, initial encounter for closed fracture Qualifiers: Encounter type: initial encounter Fracture type: closed Qualified Code(s): S62.502A - Fracture of unspecified phalanx of left thumb, initial encounter for closed fracture Plan Mr. Toribio is a 63-year-old male who presents in the office today for a follow up of left thumb avulsion fracture, which occurred on 07/18/2023 status post a trip and fall. The patient reports he feels a bit better since his last visit. However, he is still having some pain intermittently with certain movements. The patient may return to normal activities as tolerated. Follow up will be PRN, or sooner if needed. X-rays of the left hand which were obtained while in the office today and were reviewed by me, Karen Parker PA-C, revealed routine healing of a left thumb avulsion fracture. Orders: Orders XR hand LT min 3V 09/19/23 M79.643 - Pain in unspecified hand Patient Instructions: Scribed for Karen Parker PA-C by Kristan Patel medical grade shoemaker, on 09/19/2023 at 12:44 pm, EST. Coding Level of Care Code Global (93691) Diagnoses Closed avulsion fracture of phalanx of left thumb, initial encounter S62.502A Encounter type: initial encounter Fracture type: closed
[2023-09-19 13:05] VITALS: BMI 34.8
== END 2023-09-19 14:37 | disposition home or self-care (01) ==
PROVIDERS: PCP Hospitalist; Visit Provider Physician Assistant
DX: S62.502A Fracture of unspecified phalanx of left thumb, initial encounter for closed fracture (principal)
CPT/HCPCS: 99212

== ENCOUNTER 2023-09-27 09:37 | Day surgery (SDC) | payer MEDICARE, MEDICAID, SELFPAY ==
--- NOTE | 2023-09-26 12:04 | P.CONAN_ITS ---
Documented by User: Elana Singh NP 09/26/23 12:06 HPI - Anesthesia Eval Consult details Narrative: 63yo M for Colonoscopy [facility] Jennyto for DVT s/p same 04/2023 with MAC PMFSH Active Problems Active Problems: All Active Problems (Updated 08/09/23 @ 15:48 by Annie Ledbetter MD) Microcytic anemia (Acute) Avulsion fracture of left thumb (Acute) Skin lesions, generalized (Acute) Dementia (Acute) Gallstones (Acute) Hepatomegaly (Acute) Hypothyroid (Acute) Chronic hepatitis C (Acute) BPH (benign prostatic hyperplasia) (Acute) Frequent falls (Acute) Personality disorder in adult (Acute) Urinary urgency (Acute) Transaminitis (Acute) Skin lesions (Acute) Seizure disorder (Acute) Hypertension (Acute) Polysubstance (excluding opioids) dependence with physiological dependence (Acute) Past Medical History Medical History Skin lesions, generalized DVT (deep venous thrombosis) Resides in retirement facility CVA (cerebral vascular accident) Hypothyroid Dementia Chronic hepatitis BPH (benign prostatic hyperplasia) Transaminitis Alcohol abuse Skin lesions Seizure disorder Hypertension Polysubstance (excluding opioids) dependence with physiological dependence Family History Family History Mother Cancer Family history of problems with anesthesia: No Surgical History Surgical History H/O colonoscopy S/P insertion of inferior vena caval filter H/O splenectomy History of Problems with Anesthesia: No Social History Social History Household Members Other:: resides @ [phone] Housing Other:: resides at [facility] [phone] Are you a primary pediatric acute care unit nurse to a significant other at home: No Do you presently have visiting nurse or other home services: Yes ([facility] staff) Alcohol intake: never Patient Tobacco Use Status: Current everyday Tobacco user Tobacco use type: Cigarette Cigarettes Per Day: 4 Use of substances other than those prescribed or required for medical reasons: No Are you DNR?: No Advance Directives: No Advance Directives Information Provided: Yes service: No Current occupational status: disabled Meds Allergies Allergy/AdvReac Type Severity Reaction Status Date / Time meperidine [From Demerol] Allergy Unknown Verified 09/27/23 11:01 aspirin [ASA] AdvReac Mild Unknown Verified 09/27/23 11:01 Home Medications Medication Instructions Recorded Confirmed Last Taken Type acetaminophen 325 mg tablet 325 mg PO QID PRN Pain 06/01/22 09/11/23 Unknown History artificial tears solution eye drops 1 drp ophthalmic (eye) Q8H PRN Dry 06/01/22 09/11/23 Unknown History Eye(S) atorvastatin 20 mg tablet (Lipitor) 20 mg PO BEDTIME 06/01/22 09/11/23 Unknown History divalproex 500 mg tablet,delayed 500 mg PO BID 06/01/22 09/11/23 09/27/23 History release hydroxyzine HCl 25 mg tablet 25 mg PO Q6H 06/01/22 09/11/23 Unknown History lactulose 10 gram/15 mL oral 90 ml PO BID 06/01/22 09/11/23 Unknown History solution levetiracetam 500 mg tablet 500 mg PO BID 06/01/22 09/11/23 09/27/23 History levothyroxine 25 mcg tablet 25 mcg PO DAILY 06/01/22 09/11/23 09/27/23 History lidocaine 5 % topical patch 1 patch topical Q8H PRN chronic 06/01/22 09/11/23 Unknown History pain multivitamin 1 tab PO DAILY 06/01/22 09/11/23 Unknown History ondansetron HCl 4 mg tablet 4 mg PO Q8H 06/01/22 09/11/23 Unknown History rifaximin 550 mg tablet 550 mg PO BID 06/01/22 09/11/23 Unknown History risperidone 1 mg tablet 1 mg PO BID 06/01/22 09/11/23 04/27/23 History rivaroxaban 20 mg tablet (Xarelto) 20 mg PO DAILY 06/01/22 09/11/23 09/24/23 History sennosides 8.6 mg tablet (senna) 8.6 mg PO DAILY 06/01/22 09/11/23 Unknown History sertraline 100 mg tablet 100 mg PO DAILY 06/01/22 09/11/23 04/27/23 History sodium chloride 1 gram tablet 1,000 mg PO TID 06/01/22 09/11/23 Unknown History folic acid 1 mg tablet 1 mg PO DAILY 07/19/23 09/11/23 Unknown History sodium chloride 0.65 % nasal spray 2 spray intranasal Q2H PRN nasal 07/19/23 09/11/23 Unknown History aerosol (Saline Nasal) dryness Exam Pertinent Lab Results Pertinent Lab Results: Laboratory Tests 08/09/23 14:50 WBC 9.6 Hgb 12.6 L Hct 37.4 L Plt Count 273 Sodium 141 Potassium 4.1 Chloride 108 Carbon Dioxide 25 BUN 11 Creatinine 0.66 Assessment and Plan Assessment Anesthesia Assessment: Chart Reviewed Final Anesthetic Review Family History of Problems with Anesthesia: No History of Problems with Anesthesia: No Documented by User: Savanah Larson MD 09/27/23 12:45 HPI - Anesthesia Eval Consult details Narrative: 63yo M for Colonoscopy [facility] X[facility]to for DVT. Last dose of xarelto 09/24/23 s/p same 04/2023 with MAC While patient was under the care of the [facility], had a guardian/HCP who is a friend of the patient and was appointed voluntarily by the patient. Patient has since moved to [facility] and is no longer under the State of [place]. Document sent by [facility] from [place] probate court stating that the guardianship had been terminated and new papers had to be filed in [facility] by guardian(this apparently was never done). We have been unable to reach the former guardian for clarification. [facility] states that patient is competent to sign his own permits as this was a voluntary guardianship and not court-mandated. Unable to reach Risk management. Patient is alert and oriented and states that he signs his own consents. Patient already prepped for procedure. Will have patient sign consent for anesthesia and proceed with case. PMFSH Active Problems Active Problems: All Active Problems (Updated 09/24/23 @ 12:25 by Savanah Larson MD) Microcytic anemia (Acute) Avulsion fracture of left thumb (Acute) Skin lesions, generalized (Acute) Dementia (Acute) Gallstones (Acute) Hepatomegaly (Acute) Hypothyroid (Acute) Chronic hepatitis C (Acute) BPH (benign prostatic hyperplasia) (Acute) Frequent falls (Acute) Personality disorder in adult (Acute) Urinary urgency (Acute) Transaminitis (Acute) Skin lesions (Acute) Seizure disorder (Acute) Hypertension (Acute) Polysubstance (excluding opioids) dependence with physiological dependence (Acute) Past Medical History Medical History Skin lesions, generalized DVT (deep venous thrombosis) Resides in retirement facility CVA (cerebral vascular accident) Hypothyroid Dementia Chronic hepatitis BPH (benign prostatic hyperplasia) Transaminitis Alcohol abuse Skin lesions Seizure disorder Hypertension Polysubstance (excluding opioids) dependence with physiological dependence Family History Family History Mother Cancer Surgical History Surgical History H/O colonoscopy S/P insertion of inferior vena caval filter H/O splenectomy Social History Social History Household Members Other:: resides @ [phone] Housing Other:: resides at [facility] [phone] Are you a primary pediatric acute care unit nurse to a significant other at home: No Do you presently have visiting nurse or other home services: Yes ([facility] staff) Alcohol intake: never Patient Tobacco Use Status: Current everyday Tobacco user Tobacco use type: Cigarette Cigarettes Per Day: 4 Use of substances other than those prescribed or required for medical reasons: No Are you DNR?: No Advance Directives: No Advance Directives Information Provided: Yes service: No Current occupational status: disabled Meds Allergies Allergy/AdvReac Type Severity Reaction Status Date / Time meperidine [From Demerol] Allergy Unknown Verified 09/27/23 11:01 aspirin [ASA] AdvReac Mild Unknown Verified 09/27/23 11:01 Home Medications Medication Instructions Recorded Confirmed Last Taken Type acetaminophen 325 mg tablet 325 mg PO QID PRN Pain 06/01/22 09/11/23 Unknown History artificial tears solution eye drops 1 drp ophthalmic (eye) Q8H PRN Dry 06/01/22 09/11/23 Unknown History Eye(S) atorvastatin 20 mg tablet (Lipitor) 20 mg PO BEDTIME 06/01/22 09/11/23 Unknown History divalproex 500 mg tablet,delayed 500 mg PO BID 06/01/22 09/11/23 09/27/23 History release hydroxyzine HCl 25 mg tablet 25 mg PO Q6H 06/01/22 09/11/23 Unknown History lactulose 10 gram/15 mL oral 90 ml PO BID 06/01/22 09/11/23 Unknown History solution levetiracetam 500 mg tablet 500 mg PO BID 06/01/22 09/11/23 09/27/23 History levothyroxine 25 mcg tablet 25 mcg PO DAILY 06/01/22 09/11/23 09/27/23 History lidocaine 5 % topical patch 1 patch topical Q8H PRN chronic 06/01/22 09/11/23 Unknown History pain multivitamin 1 tab PO DAILY 06/01/22 09/11/23 Unknown History ondansetron HCl 4 mg tablet 4 mg PO Q8H 06/01/22 09/11/23 Unknown History rifaximin 550 mg tablet 550 mg PO BID 06/01/22 09/11/23 Unknown History risperidone 1 mg tablet 1 mg PO BID 06/01/22 09/11/23 04/27/23 History rivaroxaban 20 mg tablet (Xarelto) 20 mg PO DAILY 06/01/22 09/11/23 09/24/23 History sennosides 8.6 mg tablet (senna) 8.6 mg PO DAILY 06/01/22 09/11/23 Unknown History sertraline 100 mg tablet 100 mg PO DAILY 06/01/22 09/11/23 04/27/23 History sodium chloride 1 gram tablet 1,000 mg PO TID 06/01/22 09/11/23 Unknown History folic acid 1 mg tablet 1 mg PO DAILY 07/19/23 09/11/23 Unknown History sodium chloride 0.65 % nasal spray 2 spray intranasal Q2H PRN nasal 07/19/23 09/11/23 Unknown History aerosol (Saline Nasal) dryness Exam Height,Weight and Vital Signs: Height 5 ft 9.5 in Weight 103.238 kg Vital Signs Temp Pulse Resp BP Pulse Ox O2 Del Method 09/27/23 10:48 98.9 F 74 16 133/93 H 94 Room Air Airway Mallampati Class: II TM Dist: >3cm Neck ROM: Full Partial: Upper and Lower Loose/Missing/Broken Teeth: Yes (Denies broken or loose teeth) Heart: RRR Lungs: CTAB Assessment and Plan Assessment Anesthesia Assessment: Anesthesia Plan Discussed Final Anesthetic Review NPO: Yes ASA Class: III Final Preanesthetic Review: No Changes in Pt Med Stat, Meds/Allgs Chart Reviewed, Consent Obtained/Reviewed and Anes Risks/Benef Reviewed Patient Risk: Intermediate Procedure Risk: Low Assessment/Block/Sedation in SS: Assess/Block/Sedation-SS Anesthetic Plan Anesthetic Plan: MAC: Disposition: Standard PACU
[2023-09-27 10:09] VITALS: BMI 33.1
[2023-09-27] MEDS: Sodium Phosphate,Mono-Dibasic 133 ML ENEMA PR (10:45)
[2023-09-27] MEDS: Lactated Ringers 1,000 ML 100 ML IVCONT (10:47)
[2023-09-27 10:48] VITALS: BP 133/93; PULSE 74; RESP 16; TEMP 37.2; O2SAT 94
--- NOTE | 2023-09-27 12:40 | PC.NURSE ---
when attempted to contact hcp/guardian, no answer, messages left at 2 numbers and also on marine oil terminal superintendent that was listed in computer. upon further investigation after no call backs, [facility] stated that he is his own person and jalil, the hcp, is no longer. pt signs for himself. asked for paperwork stating the revokation and obtained. pt signs for himself.
--- NOTE | 2023-09-27 13:00 | MHC.SHP ---
Pre-Procedural Eval Section A Date of Service: 09/27/23 Section B Chief Complaint: screening Relevant Family History (Specify if Yes): No Relevant Social History: Tobacco Use Present Medications: see Short Stay Collaborative assessment Medical History: Significant History (Alcohol abuse Hypertension Polysubstance (excluding opioids) dependence with physiological dependence Seizure disorder Skin lesions Transaminitis) History of Previous Operations: No relevant previous surgery Allergies: Allergies Allergy/AdvReac Type Severity Reaction Status Date / Time meperidine [From Demerol] Allergy Unknown Verified 09/27/23 11:01 aspirin [ASA] AdvReac Mild Unknown Verified 09/27/23 11:01 Review of Systems Sugical H&P ROS: Negative: Constitution, Cardiovascular, Respiratory, Neurological, Psychiatric, Hem-Onc, Allergic/Immunologic, Gastrointestinal, Genitourinary, Musculoskeletal, Integumentary, Endocrine and Eyes/Ears/Nose/Throat Exam Surgical H&P Exam: Normal: HEENT, Normal: Heart, Normal: Lungs, Normal: Extremities, Normal: Abdomen, Normal: Skin and Normal: Neurological Plan Diagnosis/Plan: Unchanged I have reviewed the history and physical and performed a pertinent physical examination on my patient. No changes have occurred unless specified. Time Spent With Patient Time: Total time managing care of this patient today ____ minutes.
--- NOTE | 2023-09-27 13:24 | P.OP_ITS ---
Operative Note Operative Note Date of Service: 09/27/23 Narrative: Operative Information Procedure Description: Colonoscopy Indication: screening Anesthesia: MAC COLONOSCOPY Instrument: Olympus variable stiffness pediatric scope 190L Colonoscopy Monitoring: Vital signs and clinical assessment, continuous EKG monitoring, Pulse oximetry, Carbon Dioxide monitoring and blood pressure monitoring were done throughout the procedure. Colon withdrawal time was 13 minutes. Procedure: The patient was placed in the left lateral decubitis position and pre-procedure medications were administered. After a digital rectal examination of the ano-rectum, the video colonoscope was inserted into the rectum and advanced through the colon to the cecum/TI. The colonoscope was slowly withdrawn in a retrograde panoramic fashion and the colon mucosa was carefully examined including a retroflexed view of the rectum. Findings and interventions are described below. Procedure Difficulty: easy Findings: Terminal Ileum-normal Cecum:normal Ascending Colon: normal Transverse Colon - 6-8 mm sessile polyp removed with cold snare Descending Colon: 3-5 mm sessile polyp removed with cold forceps Sigmoid Colon: normal Rectum: Retroflexion with small internal hemorrhoids, grade I Anorectum - normal Colon preparation: [place] Bowel Preparation Scale Right colon; 2 Transverse colon: 2 Left colon; 2 (0 = Unprepared colon segment with mucosa not seen due to solid stool that cannot be cleared. 1 = Portion of mucosa of the colon segment seen, but other areas of the colon segment not well seen due to staining, residual stool and/or opaque liquid. 2 = Minor amount of residual staining, small fragments of stool and/or opaque liquid, but mucosa of colon segment seen well. 3 = Entire mucosa of colon segment seen well with no residual staining, small fragments of stool or opaque liquid) Impression and Post Procedure Diagnosis: polyps internal hemorrhoids Plan: High fiber diet leaflet Avoid straining at stool, epsom salts and sitz bath, anusol supps or cream Repeat Colonoscopy in 5-7 years due to adenomatous appearing polyps or earlier if clinically indicated Above findings were reviewed with the patient and relevant handouts were provided if indicated.
[2023-09-27 13:31] VITALS: BP 128/82; PULSE 68; RESP 16; TEMP 36.2; O2SAT 95
[2023-09-27 13:46] VITALS: BP 130/74; PULSE 66; RESP 16; TEMP 36.2; O2SAT 98
== END 2023-09-27 14:02 | disposition home or self-care (01) ==
PROVIDERS: PCP Hospitalist; Visit Provider Internal Medicine Gastroenterology
PROC: 0DJD8ZZ Inspection of Lower Intestinal Tract, Via Natural or Artificial Opening Endoscopic (ICD-10-PCS; CPT 45378; principal; 2023-09-27 11:00)
DX: Z12.11 Encounter for screening for malignant neoplasm of colon (principal); K63.5 Polyp of colon; K64.0 First degree hemorrhoids; B18.2 Chronic viral hepatitis C; R74.01 Elevation of levels of liver transaminase levels; R16.0 Hepatomegaly, not elsewhere classified; D50.9 Iron deficiency anemia, unspecified; I10 Essential (primary) hypertension; E03.9 Hypothyroidism, unspecified; F19.20 Other psychoactive substance dependence, uncomplicated; G40.909 Epilepsy, unspecified, not intractable, without status epilepticus; F17.210 Nicotine dependence, cigarettes, uncomplicated; Z86.73 Personal history of transient ischemic attack (TIA), and cerebral infarction without residual deficits; Z86.718 Personal history of other venous thrombosis and embolism; Z79.899 Other long term (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
CPT/HCPCS: 45385; 45380; 88305; J2704

== ENCOUNTER → 2023-09-27 09:37 | Outpatient (BNV) | payer MEDICARE, MEDICAID, SELFPAY | PROVIDERS: PCP Hospitalist; Visit Provider Internal Medicine Gastroenterology | DX: Z12.11 Encounter for screening for malignant neoplasm of colon (principal); K63.5 Polyp of colon; K64.0 First degree hemorrhoids | CPT/HCPCS: 45380; 45385 ==

== ENCOUNTER 2023-12-29 13:07 | Outpatient (REF) | payer MEDICARE, MEDICAID, SELFPAY ==
--- NOTE | ~2023-12-29 | CT_ITS ---
EXAMINATION: CT CHEST WITHOUT CONTRAST CLINICAL INFORMATION: Solitary pulmonary nodule and aortic ectasia. COMPARISON: CT chest 06/27/2023: Stable 1 cm right middle lobe nodule probably representing a subpleural lymph node. No imaging follow-up recommended. CT angiogram chest 07/08/2022. TECHNIQUE: Multidetector volumetric CT imaging of the chest was done. Axial MIP volume rendering provided. Sagittal and coronal reformatted images were obtained. This CT examination was performed using dose optimization techniques as appropriate, variously including the following: *Automated exposure control *Adjustment of mA and/or kV according to patient size (this includes techniques or standardized protocols for targeted exams where dose is matched to indication/reason for exam; i.e. extremities or head) *Use of iterative reconstruction technique DLP: 224 mGy-cm FINDINGS: LUNGS: Again seen is an 8 mm sized somewhat polygonal shaped perifissural nodule in the right middle lobe, most likely an intrapulmonary lymph node, unchanged when compared to prior (5:262 compare prior 5:199). The lungs are clear with no evidence of inflammation or additional nodules. MEDIASTINUM: Small anterior mediastinal lymph node 0.8 cm short axis dimension is unchanged. No mediastinal or hilar lymphadenopathy. CORONARY ARTERY CALCIFICATION: None visualized on this study. PLEURA: There is no pleural effusion. No pleural mass or thickening. AXILLA/CHEST WALL: There is mild gynecomastia. There are some small bilateral axillary lymph nodes present but no axillary adenopathy. UPPER ABDOMEN: There are enlarged right anterior preparacardiac lymph nodes present, the largest measuring 1.5 cm, unchanged from prior (5:402 compare prior 5:311). There is a small midline 0.5 cm paracardiac lymph node that is unchanged. There is a mildly enlarged 1.3 cm right posterior paracardiac lymph node which is unchanged (5:429 compare prior 5:341). The liver has a cirrhotic appearance with a nodular border, unchanged. There is a small spleen or splenic remnant, unchanged. There is cholelithiasis without cholecystitis, unchanged. OSSEOUS STRUCTURES: Degenerative changes in the spine. No bony destructive lesions. CT/CT chest wo IV con IMPRESSION: 1. Stable 8 mm right middle lobe perifissural nodule most likely an intrapulmonary lymph node. 2. Stable mildly enlarged paracardiac lymph nodes. 3. Cirrhotic liver with small spleen or splenic remnant as well as cholelithiasis without cholecystitis. Fleischner guidelines were followed.
== END 2023-12-29 13:08 | disposition home or self-care (01) ==
LOC: HO.CT 13:07
PROVIDERS: PCP Hospitalist; Visit Provider Hospitalist
DX: R91.1 Solitary pulmonary nodule (principal)
CPT/HCPCS: 71250

== ENCOUNTER 2024-02-13 12:52 | Outpatient (REF) | payer MEDICARE, MEDICAID, SELFPAY ==
--- NOTE | 2024-02-13 13:16 | MHC.AU.HA3 ---
Hearing Instrument Follow-Up- Binaural Date of Visit: 02/13/24 Right Ear: Iftikhar, , Color, Serial Number: Ronnie Palma [id number]-[id number] SN: [id number] Color: Black Blow Mold Machine Operator Repair Warranty: 09/30/2026 Blow Mold Machine Operator Loss and Damage Warranty: 09/30/2026 [facility] Service Plan: 09/05/2024 Battery Size: Rechargeable Yarn Preparation Supervisor/Slim Tube: 1M Earmold/Dome/CShell/SlimTip:Small power dome (no retention tail) Type of Wax Guard: CeruShield Dispensed By: [facility] Date of Fittin09/05/23 Left Ear: Iftikhar, , Color, Serial Number: Ronnie Palma [id number] SN: [id number] Color: Black Blow Mold Machine Operator Repair Warranty: 09/30/2026 Blow Mold Machine Operator Loss and Damage Warranty: 09/30/2026 [facility] Service Plan: 09/05/2024 Battery Size: Rechargeable Yarn Preparation Supervisor/Slim Tube: 1M Earmold/Dome/CShell/SlimTip: Small power dome (no retention tail) Type of Wax Guard: CeruShield Disk Dispensed By: [facility] Date of Fittin09/05/23 Follow-Up Summary: Fit with hearing aids in August. Reports everything is going well, no questions or concerns. He thought he was here to have the batteries changed today. Advised the rechargeable batteries should last for years. Cleaned and checked aids. Found wax guards clogged. Replaced wax guards and domes. Listening check positive. Recommendations: Recommendations: Hearing instrument maintenance in 6 months, or sooner if needed. Diagnosis Code(s): Primary Diagnosis: H90.3 Bilateral Sensorineural Hearing Loss Signature: Provider: Leoncio Willson, [facility]
== END 2024-02-13 12:53 | disposition home or self-care (01) ==
LOC: HO.HAP 12:52
PROVIDERS: Visit Provider Hospitalist
DX: Z13.89 Encounter for screening for other disorder (principal)

== ENCOUNTER 2024-04-08 09:10 | Outpatient (REF) | payer MEDICARE, MEDICAID, SELFPAY ==
--- NOTE | ~2024-04-08 | US_ITS ---
EXAMINATION: US ABDOMEN COMPLETE CLINICAL INFORMATION: Hepatomegaly. COMPARISON: Ultrasound abdomen complete 08/29/2023. CT abdomen 03/23/2023. TECHNIQUE: Real-time imaging of the abdominal viscera. Limited visualization due to bowel gas. FINDINGS: PANCREAS: Poorly visualized ABDOMINAL AORTA: Poorly visualized INFERIOR VENA CAVA: Visualized portions are normal. LIVER: Hepatomegaly, 24.4 cm. Redemonstration of nodular hepatic contour with increased hepatic parenchymal heterogeneity and echogenicity and appearance previously demonstrated to be characteristic of cirrhosis with substantially limited visualization. GALLBLADDER: Multiple gallstones. Gallbladder wall thickening of 3 mm. COMMON BILE DUCT: Normal in caliber measuring 0.5 cm in diameter. RIGHT KIDNEY: No hydronephrosis. No renal calculi. Limited visualization. . The kidney measures 14.4 cm in maximum dimension. LEFT KIDNEY: Left renal lateral lower pole 1.6 cm pole cyst with benign features. There is no indication for follow-up imaging. No hydronephrosis or renal calculi. The kidney measures 13.8 cm in maximum dimension. SPLEEN: Surgically absent. FREE FLUID: None. US/US abdomen complete IMPRESSION: 1. Hepatomegaly, 24.4 cm. Redemonstration of nodular hepatic contour with increased hepatic parenchymal heterogeneity and echogenicity and appearance previously demonstrated to be characteristic of cirrhosis with substantially limited visualization. 2. Cholelithiasis. Gallbladder wall thickening of 3 mm. 3. Spleen surgically absent.
== END 2024-04-08 09:11 | disposition home or self-care (01) ==
LOC: HO.US 09:10
PROVIDERS: PCP Hospitalist; Visit Provider Hospitalist
DX: R16.0 Hepatomegaly, not elsewhere classified (principal)
CPT/HCPCS: 76700

== ENCOUNTER 2024-05-14 09:57 | Outpatient (REF) | payer MEDICARE, MEDICAID, SELFPAY | END 2024-05-14 09:58 | disposition home or self-care (01) | LOC: HO.HAP 09:57 | PROVIDERS: Visit Provider Hospitalist | DX: Z13.89 Encounter for screening for other disorder (principal) ==

== ENCOUNTER 2024-05-28 14:41 | Outpatient (REF) | payer MEDICARE, MEDICAID, SELFPAY | END 2024-05-28 14:42 | disposition home or self-care (01) | LOC: HO.HAP 14:41 | PROVIDERS: Visit Provider Hospitalist | DX: Z13.89 Encounter for screening for other disorder (principal) ==

== ENCOUNTER 2024-08-14 09:55 | Outpatient (REF) | payer MEDICARE, MEDICAID, SELFPAY | END 2024-08-14 09:56 | disposition home or self-care (01) | LOC: HO.HAP 09:55 | PROVIDERS: Visit Provider Hospitalist | DX: Z13.89 Encounter for screening for other disorder (principal) ==

== ENCOUNTER 2025-01-10 08:49 | Outpatient (REF) | payer MEDICARE, MEDICAID, SELFPAY ==
--- NOTE | ~2025-01-10 | US_ITS ---
EXAMINATION: US ABDOMEN LIMITED HISTORY: HEPATOMEGALY, CHRONIC HEPATIC FAILURE TECHNIQUE: Real-time grayscale ultrasound imaging of the right upper quadrant was performed and images were reviewed. COMPARISON: Comparison is made with the prior examination dated 11/08/2023. FINDINGS: Liver: The right lobe of the liver measures 23.7 cm in size. The left lobe of the liver measures 11.8 cm in size. The liver demonstrates coarsened echotexture and a nodular appearance, suggestive of cirrhosis. No focal mass or intrahepatic biliary ductal dilatation is identified. There is normal hepatopedal flow in the portal vein. Gallbladder and biliary tree: There are multiple calculi in the gallbladder. There is no wall thickening or pericholecystic fluid. There is no sonographic Herndon sign. The common bile duct is normal in caliber measuring 3 mm. Right Kidney: The right kidney measures 14.0 cm in length. The right kidney is unremarkable, without evidence of masses, hydronephrosis, or calculi. Pancreas: The pancreas is largely obscured by bowel gas. Abdominal aorta and inferior vena cava: The visualized portions of the abdominal aorta and inferior vena cava are normal in caliber. There is no free fluid in the right upper quadrant. US/US abdomen limited IMPRESSION: Hepatomegaly and probable cirrhosis. Cholelithiasis without evidence of acute cholecystitis. Electronically signed by: Lukasz Lentz MD 01/10/2025 10:03 AM EDT
== END 2025-01-10 08:50 | disposition home or self-care (01) ==
LOC: HO.US 08:49
PROVIDERS: PCP Hospitalist; Visit Provider Hospitalist
DX: R16.0 Hepatomegaly, not elsewhere classified (principal); K72.10 Chronic hepatic failure without coma
CPT/HCPCS: 76705

== ENCOUNTER → 2025-01-10 08:56 | Outpatient (BNV) | payer MEDICARE, MEDICAID, SELFPAY | PROVIDERS: PCP Hospitalist; Visit Provider Radiology Diagnostic Radiology | DX: R16.0 Hepatomegaly, not elsewhere classified (principal) | CPT/HCPCS: 76705 ==

== ENCOUNTER 2025-02-17 13:47 | Outpatient (REF) | payer MEDICARE, MEDICAID, SELFPAY ==
--- NOTE | 2025-02-17 14:21 | MHC.AU.HA3 ---
Hearing Instrument Follow-Up- Binaural Date of Visit: 02/17/25 Right Ear: Iftikhar, Model, Color, Serial Number: Ronnie Palma [id number]-[id number] SN: [id number] Color: Black Local Bulk Driver Repair Warranty: 09/30/2026 Local Bulk Driver Loss and Damage Warranty: 09/30/2026 [facility] Service Plan: 09/05/2024 Battery Size: Rechargeable Environmental Scientist/Slim Tube: 1M Earmold/Dome/CShell/SlimTip:Small power dome (no retention tail) Type of Wax Guard: CeruShield Dispensed By: [facility] Date of Fittin09/05/2023 Left Ear: Iftikhar, Model, Color, Serial Number: Ronnie Palma [id number]-[id number] SN: [id number] Color: Black Local Bulk Driver Repair Warranty: 09/30/2026 Local Bulk Driver Loss and Damage Warranty: USED [facility] Service Plan: 09/05/2024 Battery Size: Rechargeable Environmental Scientist/Slim Tube: 1M Earmold/Dome/CShell/SlimTip: Small power dome (no retention tail) Type of Wax Guard: CeruShield Disk Dispensed By: [facility] Date of Fittin09/05/2023 Follow-Up Summary: Seen for maintenance. Accompanied by staff from [facility]. Reports no concerns for hearing aids at this time. Found wax build up on domes. Cleaned aids. Replaced domes and wax guards. Listening check positive. Checked for firmware update, none available, aids are up to date. Recommendations: Recommendations: Hearing instrument follow-up or maintenance as needed. Diagnosis Code(s): Primary Diagnosis: H90.3 Bilateral Sensorineural Hearing Loss Signature: Provider: Leoncio Willson, CCC-A
--- OUTSIDE RECORDS SUMMARY | 2025-02-17 16:33 | XMS_ITS | Encounter Summary ---
Author Organization [employer] Address [address] [place] [address] Care Team Providers Care Camp Assistant Name Role Phone Armando Monreal MD Primary Care Provider [phone] Encounter Details Date Type Department Care Team (Late st Contact Info) Description 01/31/2025 Lab Requisition [facility] Lab [address] [facility] [place] [address] Armando Monreal MD [address] [place] [address] [address] [place], [place] Unspecified intracranial injury with loss of consciousness of unspecified duration, sequela (CMS/HCC V24); Elevated white blood cell count, unspecified Social History Tobacco Use Types Packs/Day Years Used Date Smoking Tobacco: Never Assessed Sex and Gender Information Value Date Recorded Sex Assigned at Not on file Legal Sex Male 5:38 PM EST Gender Identity Not on file Sexual Orientation Not on file documented as of this encounter Plan of Treatment Not on file documented as of this encounter Procedures Procedure Name Priority Date/Time Associated Diagnosis Comments CBC WITH AUTO DIFFERENTIAL Routine 01/31/2025 7:00 AM EDT Unspecified intracranial injury with loss of consciousness of unspecified duration, sequela (CMS/HCC V24) Elevated white blood cell count, unspecified LEVETIRACETAM LEVEL Routine 01/31/2025 7 :00 AM EDT Unspecified intracranial injury with loss of consciousness of unspecified duration, sequela (CMS/HCC V24) Elevated white blood cell count, unspecified CBC AND DIFFERENTIAL Routine 01/31/2025 7:00 AM EDT Unspecified intracranial injury with loss of consciousness of unspecified duration, sequela (CMS/HCC V24) Elevated white blood cell count, unspecified VITAMIN B1 Routine 01/31/2025 7:00 AM EDT Unspecified intracranial injury with loss of consciousness of unspecified duration, sequela ([facility] V24) Elevated white blood cell count, unspecified VITAMIN B12 Routine 01/31/2025 7:00 AM EDT Unspecified intracranial injury with loss of consciousness of unspecified duration, sequela ([facility] V24) Elevated white blood cell count, unspecified AMMONIA Routine 01/31/2025 7:00 AM EDT Unspecified intracranial injury with loss of consciousness of unspecified duration, sequela ([facility] V24) Elevated white blood cell count, unspecified VALPROIC ACID LEVEL, TOTAL Routine 01/31/2025 7:00 AM EDT Unspecified intracranial injury with loss of consciousness of unspecified duration, sequela ([facility] V24) Elevated white blood cell count, unspecified COMPREHENSIVE METABOLIC PANEL Routine 01/31/2025 7:00 AM EDT Unspecified intracranial injury with loss of consciousness of unspecified duration, sequela ([facility] V24) Elevated white blood cell count, unspecified documented in this encounter Results * (ABNORMAL) CBC auto differential (01/31/2025 7:00 AM EDT) [facility] WBC 11.6(H) 4.8 - 10.8 K/mcL LAB HEMETOLOGY METHOD 01/31/2025 10:17 AM [facility] RBC 5.80(H) 4.50 - 5.50 M/mcL LAB HEMETOLOGY METHOD 01/31/2025 10:17 AM [facility] Hemoglobin 12.7(L) 13.5 - 17.5 g/dL LAB HEMETOLOGY METHOD 01/31/2025 10:17 AM [facility] Hematocrit 39.1(L) 42.0 - 54.0 % LAB HEMETOLOGY METHOD 01/31/2025 10:17 AM [facility] MCV 67.6(L) 79.0 - 98.0 FL LAB HEMETOLOGY METHOD 01/31/2025 10:17 AM [facility] MCH 22.0(L) 27.0 - 32.0 pcg LAB HEMETOLOGY METHOD 01/31/2025 10:17 AM [facility] MCHC 32.5 32.0 - 37.0 g/dL LAB HEMETOLOGY METHOD 01/31/2025 10:17 AM [facility] RDW 18.6(H) 11.0 - 15.0 % LAB HEMETOLOGY METHOD 01/31/2025 10:17 AM [facility] Platelets 327 130 - 400 K/mcL LAB HEMETOLOGY METHOD 01/31/2025 10:17 AM [facility] MPV 12.8(H) 7.0 - 11.0 FL LAB HEMETOLOGY METHOD 01/31/2025 10:17 AM [facility] NRBC 0.8 <1.0 % LAB HEMETOLOGY METHOD 01/31/2025 10:17 AM [facility] NRBC Absolute 0.09 <0.10 K/mcL LAB HEMETOLOGY METHOD 01/31/2025 10:17 AM [facility] Neutrophils Relative 49.6 % LAB HEMETOLOGY METHOD 01/31/2025 10:17 AM [facility] Lymphocytes Relative 37.0 % LAB HEMETOLOGY METHOD 01/31/2025 10:17 AM [facility] Monocytes Relative 8.8 % LAB HEMETOLOGY METHOD 01/31/2025 10:17 AM [facility] Eosinophils Relative 2.9 % LAB HEMETOLOGY METHOD 01/31/2025 10:17 AM [facility] Basophils Relative 1.3 % LAB HEMETOLOGY METHOD 01/31/2025 10:17 AM EDT [facility] Immature Granulocytes Relative 0.4 % LAB HEMETOLOGY METHOD 01/31/2025 10:17 AM EDT [facility] Neutrophils Absolute 5.76 1.50 - 7.00 K/[facility] LAB HEMETOLOGY METHOD 01/31/2025 10:17 AM EDT [facility] Lymphocytes Absolute 4.31 1.00 - 5.00 K/mcL LAB HEMETOLOGY METHOD 01/31/2025 10:17 AM EDT [facility] Monocytes Absolute 1.03(H) 0.20 - 1.00 K/mcL LAB HEMETOLOGY METHOD 01/31/2025 10:17 AM EDT [facility] Eosinophils Absolute 0.34 0.00 - 0.50 K/mcL LAB HEMETOLOGY METHOD 01/31/2025 10:17 AM EDT [facility] Basophils Absolute 0.15 0.00 - 0.20 K/[facility] LAB HEMETOLOGY METHOD 01/31/2025 10:17 AM EDT [facility] Immature Granulocytes Absolute 0.05(H) 0.00 - 0.03 K/mcL LAB HEMETOLOGY METHOD 01/31/2025 10:17 AM [facility] Blood Venous blood specimen / Unknown 01/31/2025 7:00 AM EDT 01/31/2025 8:05 AM EDT us Armando Monreal MD LAB BLOOD ORDERABLES Final Resul t [facility] [address] [place] [address], * Valproic acid level, total (01/31/2025 7:00 AM EDT) Valproic Acid, Total 60 50 - 100 mcg/mL LAB CHEMISTRY METHOD 01/31/2025 8:58 AM EDT [facility] Blood Venous blood specimen / Unknown 01/31/2025 7:00 AM EDT 01/31/2025 8:05 AM EDT us Armando Monreal MD LAB BLOOD ORDERABLES Final Resul t Performing Organization Address [facility]/ZIP Co de Phone Number [facility] [address] [place] [address], [place] [phone] * Vitamin B12 (01/31/2025 7:00 AM EDT) Pathologist [facility] Vitamin B-12 453 250 - 900 pcg/mL LAB CHEMISTRY METHOD 01/31/2025 9:41 AM EDT [facility] Blood Venous blood specimen / Unknown 01/31/2025 7:00 AM EDT 01/31/2025 8:05 AM EDT us Armando Monreal MD LAB BLOOD ORDERABLES Final Resul t Performing Organization Address [facility] de Phone Number [facility] [address] [place] [address], [place] [phone] * Vitamin B1 (01/31/2025 7:00 AM EDT) [facility] Vitamin B1 Whole Blood 73 38 - 122 ug/L 02/10/2025 2:50 PM EDT [facility] Comment: This test was developed and the performance characteristics determined by [facility]. It has not been cleared or approved by the FDA. The laboratory is regulated under CLIA as qualified to perform high-complexity testing. This test is used for patient testing purposes. It should not be regarded as investigational or for research. Test performed at [facility], [address], [place], [place] ??[address] ? [phone] Madeline Tan MD, PhD - Parts Salesman Blood Venous blood specimen / Unknown 01/31/2025 7:00 AM EDT 01/31/2025 8:05 AM EDT us Armando Monreal MD LAB BLOOD ORDERABLES Final Resul t Performing Organization Address [facility]/ZIP Co de Phone Number [facility] [address] [place] [address] * Levetiracetam level (01/31/2025 7:00 AM EDT) Levetiracetam 10.5 3.0 - 60.0 ug/mL 02/03/2025 6:13 AM EDT [facility] Comment: Steady state trough serum or plasma levels following doses of 1000 to 3000 mg/Day: ??3 to 37 ug/mL. The same dosage regimen will typically result in peak levels of 10 to 60 ug/mL, at approximately 1.5 hours post dose. If applicable, any drug confirmation testing reported here was developed and the performance characteristics determined by [facility]. This confirmation testing has not been cleared or approved by the FDA. The laboratory is regulated under CLIA as qualified to perform high-complexity testing. This test is used for patient testing purposes. It should not be regarded as investigational or for research. Test performed at [facility], [address] [place], [place] ??[address] ? [phone] Madeline Tan MD, PhD - Parts Salesman Blood Venous blood specimen / Unknown 01/31/2025 7:00 AM EDT 01/31/2025 8:05 AM EDT us Armando Monreal MD LAB BLOOD ORDERABLES Final Resul t Performing Organization Address [facility]/ZIP Co de Phone Number [facility] [address] [place] [address] * (ABNORMAL) Ammonia (01/31/2025 7:00 AM EDT) Ammonia 54(H) 11 - 35 mcmol/L LAB CHEMISTRY METHOD 01/31/2025 8:58 AM EDT [facility] Blood Venous blood specimen / Unknown 01/31/2025 7:00 AM EDT 01/31/2025 8:05 AM EDT us Armando Monreal MD LAB BLOOD ORDERABLES Final Resul t [facility] [address] [place] [address], * (ABNORMAL) Comprehensive metabolic panel (01/31/2025 7:00 AM EDT) Sodium 141 133 - 145 mmol/L LAB CHEMISTRY METHOD 01/31/2025 9:40 AM [facility] Potassium 4.8 3.5 - 5.5 mmol/L LAB CHEMISTRY METHOD 01/31/2025 9:40 AM [facility] Chloride 107 96 - 110 mmol/L LAB CHEMISTRY METHOD 01/31/2025 9:40 AM [facility] CO2 26 21 - 32 mmol/L LAB CHEMISTRY METHOD 01/31/2025 9:40 AM [facility] Anion Gap 8 3 - 11 LAB CHEMISTRY METHOD 01/31/2025 9:40 AM [facility] Glucose 130(H) 70 - 100 mg/dL LAB CHEMISTRY METHOD 01/31/2025 9:40 AM [facility] BUN 14 5 - 25 mg/dL LAB CHEMISTRY METHOD 01/31/2025 9:40 AM [facility] Creatinine 0.59(L) 0.70 - 1.30 mg/dL LAB CHEMISTRY METHOD 01/31/2025 9:40 AM [facility] eGFR 108 >=60 mL/min/1. 73m2 LAB CHEMISTRY METHOD 01/31/2025 9:40 AM [facility] Comment:Calculation based on the??Chronic Kidney Disease Epidemiology Collaboration (CKD-EPI) equation refit??without adjustment for race. BUN/Creatinine Ratio 23.7 LAB CHEMISTRY METHOD 01/31/2025 9:40 AM [facility] Calcium 9.3 8.5 - 10.5 mg/dL LAB CHEMISTRY METHOD 01/31/2025 9:40 AM [facility] AST (SGOT) 14 10 - 42 unit/L LAB CHEMISTRY METHOD 01/31/2025 9:40 AM [facility] ALT (SGPT) 14 10 - 60 unit/L LAB CHEMISTRY METHOD 01/31/2025 9:40 AM T [facility] Alkaline Phosphatase 71 42 - 121 unit/L LAB CHEMISTRY METHOD 01/31/2025 9:40 AM EDT [facility] Total Protein 7.3 6.0 - 8.0 g/dL LAB CHEMISTRY METHOD 01/31/2025 9:40 AM [facility] Albumin 3.2 3.2 - 5.0 g/dL LAB CHEMISTRY METHOD 01/31/2025 9:40 AM [facility] Total Bilirubin 0.5 0.0 - 1.4 mg/dL LAB CHEMISTRY METHOD 01/31/2025 9:40 AM T [facility] Blood Venous blood specimen / Unknown 01/31/2025 7:00 AM EDT 01/31/2025 8:05 AM EDT us Armando Monreal MD LAB BLOOD ORDERABLES Final Resul t [facility] [address] [place] [address], documented in this encounter Visit Diagnoses Diagnosis Unspecified intracranial injury with loss of consciousness of unspecified duration, sequela (CMS/HCC V24) Elevated white blood cell count, unspecified documented in this encounter Care Teams Camp Assistant Relationship Specialty Start Date End Date Armando Monreal MD [address] [place] [address] Dr [address] [place] [address] PCP - General Internal Medicine 12/06/24 documented as of this encounter
--- OUTSIDE RECORDS SUMMARY | 2025-02-17 16:33 | XMS_ITS | Encounter Summary ---
Author Organization [employer] Address [address] [place] [address] Care Team Providers Care Risk Consultant Name Role Phone Armando Monreal MD Primary Care Provider Encounter Details Date Type Department Care Team (Late st Contact Info) Description 12/26/2024 Lab Requisition [facility] [address] [facility] [place] [address] Armando Monreal MD [address] [place] [address] [address] [place], [place] Other continuous churn buttermaker (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; Chronic hepatic failure without coma (CMS/HCC V24, CMS/HCC V28) Social History Tobacco Use Types Packs/Day Years [...] Procedure Name Priority Date/Time Associated Diagnosis Comments RED - PLAIN Routine 12/26/2024 10:29 AM EST Other correction (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 Chronic hepatic failure without coma (CMS/HCC) CREATININE, SERUM Routine 12/26/2024 10: 29 AM EST Other correction (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 Chronic hepatic failure without coma (CMS/HCC) BUN Routine 12/26/2024 10:29 AM EST Other continuous churn buttermaker (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 Chronic hepatic failure without coma (CMS/HCC) documented in this encounter Results * Red tube (12/26/2024 10:29 AM EST) Extra Tube Hold for add-ons. 12/26/2024 2:01 PM EST [facility] Comment:Auto resulted. Blood Venous blood specimen / Unknown 12/26/2024 10:29 AM EST 12/26/2024 12:55 PM EST us Armando Monreal MD LAB BLOOD ORDERABLES Final Resul t Performing Organization Address City/[facility]/ZIP Co de Phone Number [facility] [address] [place] [address], [place] [phone] * (ABNORMAL) Creatinine (12/26/2024 10:29 AM EST) Creatinine 0.67(L) 0.70 - 1.30 mg/dL LAB CHEMISTRY METHOD 12/26/2024 1:24 PM EST [facility] eGFR 104 >=60 mL/min/1. 73m2 LAB CHEMISTRY METHOD 12/26/2024 1:24 PM EST [facility] Comment:Calculation based on the??Chronic Kidney Disease Epidemiology Collaboration (CKD-EPI) equation refit??without adjustment for race. Blood Venous blood specimen / Unknown 12/26/2024 10:29 AM EST 12/26/2024 12:55 PM EST us Armando Monreal MD LAB BLOOD ORDERABLES Final Resul t Performing Organization Address [facility] Co de Phone Number [facility] [address] [place] [address], [place] [phone] * BUN (12/26/2024 10:29 AM EST) BUN 11 5 - 25 mg/dL LAB CHEMISTRY METHOD 12/26/2024 1:24 PM EST [facility] Blood Venous blood specimen / Unknown 12/26/2024 10:29 AM EST 12/26/2024 12:55 PM EST us Armando Monreal MD LAB BLOOD ORDERABLES Final Resul t Performing Organization Address City/[facility]/ZIP Co de Phone Number [facility] [address] [place] [address], documented in this encounter Visit Diagnoses Diagnosis Other correction (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 Chronic hepatic failure without coma (CMS/HCC V24, CMS/HCC V28) documented in this encounter Care Teams Risk Consultant Relationship Specialty Start Date End Date Armando Monreal MD [address] [place] [address] Dr [address] [place], [place] PCP - General Internal Medicine 12/06/24 documented as of this encounter
--- OUTSIDE RECORDS SUMMARY | 2025-02-17 16:33 | XMS_ITS | Encounter Summary ---
Author Organization [employer] Address [address] [place] [address] Care Team Providers Care Bi Analyst Name Role Phone Armando Monreal MD Primary Care Provider [phone] Encounter Details Date Type Department Care Team (Late st Contact Info) Description 02/12/2025 Lab Requisition [facility] - Main Lab [address] [facility] [place] [address] Armando Monreal MD [address] [place] [address] [address] [place], [place] 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; Liver disease, unspecified Social History Tobacco Use Types Packs/Day [...] Procedure Name Priority Date/Time Associated Diagnosis Comments LAVENDER - EDTA Routine 02/12/2025 12:00 AM EDT 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 Liver disease, unspecified LAVENDER - EDTA Routine 02/12/2025 12:00 AM EDT Other senior care (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 Liver disease, unspecified IRON AND TIBC Routine 02/12/2025 12:00 AM EDT 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 Liver disease, unspecified TRANSFERRIN Routine 02/12/2025 12:00 AM EDT 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 Liver disease, unspecified FERRITIN Routine 02/12/2025 12:00 AM EDT Other senior care (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 Liver disease, unspecified documented in this encounter Results * Lavender tube (02/12/2025 12:00 AM EDT) Extra Tube Hold for add-ons. 02/15/2025 10:01 AM EDT [facility] Comment:Auto resulted. Blood Venous blood specimen / Unknown 02/12/2025 02/12/2025 7:13 AM EDT us Armando Monreal MD LAB BLOOD ORDERABLES Final Resul t Performing Organization Address City/[facility]/ZIP Co de Phone Number [facility] [address] [place] [address], [place] [phone] * Lavender tube (02/12/2025 12:00 AM EDT) Extra Tube Hold for add-ons. 02/15/2025 10:01 AM EDT [facility] Comment:Auto resulted. Blood Venous blood specimen / Unknown 02/12/2025 02/12/2025 7:13 AM EDT us Armando Monreal MD LAB BLOOD ORDERABLES Final Resul t Performing Organization Address [facility]/ZIP Co de Phone Number [facility] [address] [place] [address], [place] [phone] * Ferritin (02/12/2025 12:00 AM EDT) Ferritin 181 26 - 388 ng/mL LAB CHEMISTRY METHOD 02/12/2025 8:10 AM EDT [facility] Blood Venous blood specimen / Unknown 02/12/2025 02/12/2025 7:13 AM EDT us Armando Monreal MD LAB BLOOD ORDERABLES Final Resul t Performing Organization Address City/[facility]/ZIP Co de Phone Number [facility] [address] [place] [address], [place] [phone] * Iron and TIBC (02/12/2025 12:00 AM EDT) Iron 67 50 - 160 mcg/dL LAB CHEMISTRY METHOD 02/12/2025 8:10 AM EDT [facility] TIBC 311 250 - 450 mcg/dL LAB CHEMISTRY METHOD 02/12/2025 8:10 AM EDT [facility] Iron Saturation 22 20 - 50 % LAB CHEMISTRY METHOD 02/12/2025 8:10 AM EDT [facility] Blood Venous blood specimen / Unknown 02/12/2025 02/12/2025 7:13 AM EDT us Armando Monreal MD LAB BLOOD ORDERABLES Final Resul t Performing Organization Address City/[facility]/ZIP Co de Phone Number [facility] [address] [place] [address], [place] [phone] * Transferrin (02/12/2025 12:00 AM EDT) Transferrin 257 200 - 360 mg/dL 02/14/2025 4:43 AM EDT [facility] Comment: Test performed at [facility], [address] , [place], [place] ??[address] ? [phone] Madeline Tan MD, PhD - Trim Stencil Maker Blood Venous blood specimen / Unknown 02/12/2025 02/12/2025 7:13 AM EDT us Armando Monreal MD LAB BLOOD ORDERABLES Final Resul t [facility] [address] [place] [address] documented in this encounter Visit Diagnoses Diagnosis 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 Liver disease, unspecified documented in this encounter Care Teams Bi Analyst Relationship Specialty Start Date End Date Armando Monreal MD [address] [place] [address] Dr [facility] HANS Hobson PCP - General Internal Medicine 12/06/24 documented as of this encounter
--- OUTSIDE RECORDS SUMMARY | 2025-02-17 16:33 | XMS_ITS | Encounter Summary ---
Author Organization [employer] Address [address] [place] [address] Care Team Providers Care Cooking Instructor Name Role Phone Armando Monreal MD Primary Care Provider [phone] Encounter Details Date Type Department Care Team (Late st Contact Info) Description 11/27/2024 Lab Requisition [facility] - Main Lab [address] [facility] [place] [address] Armando Monreal MD [address] [place] [address] [address] [place], [place] Other senior care (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 Social History Tobacco Use Types Packs/Day Years [...] Procedure Name Priority Date/Time Associated Diagnosis Comments THYROID STIMULATING HORMONE WITH REFLEX TO FREE T4 AND FREE T3 Routine 11/27/2024 6:50 AM EST Other manager intermediate (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 VITAMIN B12 AND FOLATE Routine 6:50 AM EST Other senior care (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 TUMOR NECROSIS FACTOR ALPHA Routine 11/27/2024 6:50 AM EST Other senior care (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 NEURON SPECIFIC ENOLASE, SERUM Routine 11/27/2024 6:50 AM EST Other senior care (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 LAVENDER - EDTA Routine 11/27/2024 6:50 AM EST Other senior care (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 MISCELLANEOUS LAB TEST Routine 6:50 AM EST Other manager intermediate (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 METHYLMALONIC ACID, SERUM Routine 11/27/2024 6:50 AM EST Other manager intermediate (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 INTERLEUKIN-6 Routine 11/27/2024 6:50 AM EST Other senior care (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 C REACTIVE PROTEIN, HIGH SENSITIVITY Routine 11/27/2024 6:50 AM EST Other senior care (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 documented in this encounter Results * Lavender tube (11/27/2024 6:50 AM EST) Extra Tube Hold for add-ons. 11/27/2024 10:[address] [facility] Comment:Auto resulted. Blood Venous blood specimen / Unknown 11/27/2024 6:50 AM EST 11/27/2024 8:16 AM EST us Armando Monreal MD LAB BLOOD ORDERABLES Final Resul t [facility]) [facility] [address] [place] [address], * - Miscellaneous Test (11/27/2024 6:50 AM EST) Miscellaneous Test COMMENT 2024 4:05 PM EST [facility] Comment: Test Ordered: [id number] Copeptin Test(s) [id number] This test was developed and its performance characteristics determined by [facility]. It has not been cleared or approved by the Food and Drug Administration. Copeptin ? 3.5 ?pmol/L ?? 01 ? Reference Range: 0.0-5.9 ? Reference interval derived from testing of non-water deprived, non-fasting adults. Blood Venous blood specimen / Unknown 11/27/2024 6:50 AM EST 11/27/2024 8:16 AM EST Narrative [facility] - 12/03/2024 4:05 PM EST Performed At: [address] [id number] Jake Hodgson MD Ph:[phone] Performed At: 02 [facility] [address], [address] [place], [place] [id number] Aly Benson MD Ph:[phone] us Armando Monreal MD LAB BLOOD ORDERABLES Final Resul t Performing Organization Address [facility] de Phone Number [facility] * Tumor necrosis factor alpha (11/27/2024 6:50 AM EST) [facility] Tumor Necrosis Factor-Alpha 1.1 0.0 - 2.2 pg/mL 11/29/2024 3:05 PM EST [facility] Blood Venous blood specimen / Unknown 11/27/2024 6:50 AM EST 11/27/2024 8:16 AM EST Narrative [facility] - 11/29/2024 3:05 PM EST Test(s) [id number]-Iprii Necrosis Factor-Alpha This test was developed and its performance characteristics determined by [employer]. It has not been cleared or approved by the Food and Drug Administration. Performed at: ??01 - [facility] ??[id number] Ground Services Instructor: Gokul Joseph MD, Phone: ??[phone] us Armando Monreal MD LAB BLOOD ORDERABLES Final Resul t Performing Organization Address [facility] Co de Phone Number [facility] * C reactive protein, high sensitivity (11/27/2024 6:50 AM EST) Pathologist [facility] CRP, High Sensitivity 3.97 mg/L LAB CHEMISTRY METHOD 11/27/2024 8:[address] [facility] Comment: Cardio CRP Relative Risk Categories ?? Low ? <1.0 mg/L ?? Average ?? 1.0 - 3.0 mg/L ?? High ?>3.0 mg/L Levels >10.0 mg/L should be ignored and repeated when the patient is stable and infection or inflammation is ruled out. Blood Venous blood specimen / Unknown 11/27/2024 6:50 AM EST 11/27/2024 8:16 AM EST us Armando Monreal MD LAB BLOOD ORDERABLES Final Resul t [facility] ([facility]) [facility] [address] [place] [address], * Interleukin-6 (11/27/2024 6:50 AM EST) Interleukin-6, Serum 6.9 0.0 - 13.0 pg/mL 11/29/2024 2:05 PM EST [facility] Comment: Based on the available clinical data, PCR-confirmed COVID-19 patients with IL-6 concentrations >35.0 pg/mL at presentation are at risk for mechanical ventilation during their hospitalization. IL-6 values should be used in conjunction with clinical findings and the results of other laboratory findings. IL-6 values alone are not indicative of the need for endotracheal intubation or mechanical ventilation. Blood Venous blood specimen / Unknown 11/27/2024 6:50 AM EST 11/27/2024 8:16 AM EST Narrative [facility] - 11/29/2024 2:05 PM EST Test(s) [id number]-3, Serum has not been FDA cleared or approved. This test has been authorized by FDA under an EUA for use by authorized laboratories. This test has been authorized only to assist in identifying severe inflammatory response, when used as an aid in determining the risk of intubation with mechanical ventilation in confirmed COVID-19 patients. This test is only authorized for the duration of the declaration that circumstances exist justifying the authorization of emergency use of medical devices under Section 564(b)(1) of the Act, 21 U.S.C. / 360bbb-3(b)(1), unless the authorization is terminated or revoked sooner. Performed at: ??01 - [facility] [address] ??[id number] Ground Services Instructor: Gokul Joseph MD, Phone: ??[phone] us Armando Monreal MD LAB BLOOD ORDERABLES Final Resul t Performing Organization Address [facility] de Phone Number [facility] * Neuron specific enolase, serum (11/27/2024 6:50 AM EST) Neuron Specific Enolase 9.9 <=12.7 ng/mL 12/01/2024 4:45 PM EST [facility] Comment: INTERPRETIVE INFORMATION: Neuron Specific Enolase in Serum This assay is performed using the [employer] NSE Kryptor Immunoassay. ??Results obtained with different assay methods or kits cannot be used interchangeably. ??Results cannot be interpreted as absolute evidence of the presence or absence of malignant disease. This test was developed and its performance characteristics determined by [employer]. It has not been cleared or approved by the [place] Food and Drug Administration. This test was performed in a CLIA certified laboratory and is intended for clinical purposes. Performed By: [facility] [facility] [address] [place] [address] Basting Puller: oTño Millan MD, PhD CLIA Number: [id number] Blood Venous blood specimen / Unknown 11/27/2024 6:50 AM EST 11/27/2024 8:16 AM EST us Armando Monreal MD LAB BLOOD ORDERABLES Final Resul t Performing Organization Address [facility] de Phone Number [facility] [address] [place] [address] * Methylmalonic acid, serum (11/27/2024 6:50 AM EST) Methylmalonic Acid 0.15 <0.40 umol/L 11/30/2024 11:24 AM EST [facility] Comment: If applicable, any drug confirmation testing reported here was developed and the performance characteristics determined by [facility]. This confirmation testing has not been cleared or approved by the FDA. The laboratory is regulated under CLIA as qualified to perform high-complexity testing. This test is used for patient testing purposes. It should not be regarded as investigational or for research. Test performed at [facility], [address] , [place], [place] ??[address] ? [phone] Madeline Tan MD, PhD - Pilot Safety Inspector Blood Venous blood specimen / Unknown 11/27/2024 6:50 AM EST 11/27/2024 8:16 AM EST us Armando Monreal MD LAB BLOOD ORDERABLES Final Resul t Performing Organization Address City/[facility]/ZIP Co de Phone Number [facility] [address] [place] [address] * Thyroid stimulating hormone with reflex to free t4 and free t3 (11/27/2024 6:50 AM EST) TSH 2.24 0.40 - 4.00 mcIU/mL LAB CHEMISTRY METHOD 11/27/2024 8:[address] [facility] Blood Venous blood specimen / Unknown 11/27/2024 6:50 AM EST 11/27/2024 8:16 AM EST us Armando Monreal MD LAB BLOOD ORDERABLES Final Resul t Performing Organization Address City/[facility] Co de Phone Number [facility] [address] [place] [address], * (ABNORMAL) Vitamin B12 and folate (11/27/2024 6:50 AM EST) Vitamin B-12 321 250 - 900 pcg/mL LAB CHEMISTRY METHOD 11/27/2024 9:[address] [facility] Folate >20.0(H) 2.8 - 17.0 ng/ml LAB CHEMISTRY METHOD 11/27/2024 9:[address] [facility] Blood Venous blood specimen / Unknown 11/27/2024 6:50 AM EST 11/27/2024 8:16 AM EST us Armando Monreal MD LAB BLOOD ORDERABLES Final Resul t [facility] ([facility]) [facility] [address] [place] [address], documented in this encounter Visit Diagnoses Diagnosis Other manager intermediate (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 documented in this encounter Care Teams Cooking Instructor Relationship Specialty Start Date End Date Armando Monreal MD [address] [place] [address] [address] [place], [place] PCP - General Internal Medicine 12/06/24 documented as of this encounter
--- OUTSIDE RECORDS SUMMARY | 2025-02-17 16:33 | XMS_ITS | Encounter Summary ---
Author Organization [employer] Address [address] [place] [address] Care Team Providers Care Principal Planner Name Role Phone Armando Monreal MD Primary Care Provider [phone] Encounter Details Date Type Department Care Team (Late st Contact Info) Description 12/06/2024 Lab Requisition [facility] - Main Lab [address] [facility] [place] [address] Armando Monreal MD [address] [place] [address] [address] [place], [place] Other strategic account director (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 Social History Tobacco Use [...] Procedure Name Priority Date/Time Associated Diagnosis Comments VITAMIN D 25 HYDROXY Routine 12/06/2024 5:40 AM EST Other strategic account director (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 HEMOGLOBIN A1C Routine 12/06/2024 5:40 AM EST Other strategic account director (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 documented in this encounter Results * Hemoglobin A1c (12/06/2024 5:40 AM EST) Hemoglobin A1C 6.3 <6.5 % LAB CHEMISTRY METHOD 12/06/2024 11:24 AM EST [facility] Mean Bld Glu Estim. 134 mg/dL LAB CHEMISTRY METHOD 12/06/2024 11:24 AM EST [facility] Blood Venous blood specimen / Unknown 12/06/2024 5:40 AM EST 12/06/2024 6:57 AM EST us Armando Monreal MD LAB BLOOD ORDERABLES Final Resul t Performing Organization Address City/[facility]/ZIP Co de Phone Number [facility] [address] [place] [address], [place] [phone] * Vitamin D 25 hydroxy (12/06/2024 5:40 AM EST) Vit D, 25-Hydroxy 63.7 30.0 - 80.0 ng/mL LAB CHEMISTRY METHOD 12/06/2024 7:51 AM EST [facility] Blood Venous blood specimen / Unknown 12/06/2024 5:40 AM EST 12/06/2024 6:57 AM EST us Armando Monreal MD LAB BLOOD ORDERABLES Final Resul t Performing Organization Address [facility]/ZIP Co de Phone Number [facility] [address] [place] [address], [place] [phone] documented in this encounter Visit Diagnoses Diagnosis Other halfway (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 documented in this encounter Care Teams Principal Planner Relationship Specialty Start Date End Date Armando Monreal MD [address] [place] [address] Dr [facility] HANS Hobson PCP - General Internal Medicine 12/06/24 documented as of this encounter
--- OUTSIDE RECORDS SUMMARY | 2025-02-17 16:33 | XMS_ITS | Clinical Summary ---
Author Organization [facility] Address [address] [place] [address] Phone Care Team Providers Care Supervisor Histology Name Role Phone Armando Monreal MD Primary Care Provider [phone] Encounters Date Type Department Care Team Description 02/17/[address] 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 [address] [place] [phone] Armando Monreal MD Other fdc (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; Liver disease, unspecified 01/31/[address] [facility] Lab [address] [place] [phone] Armando Monreal MD Unspecified intracranial injury with loss of consciousness of unspecified duration, sequela (CMS/HCC V24); Elevated white blood cell count, unspecified 12/26/[address] 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 11/27/20[address] [facility] Main Lab [address] [place] [phone] Armando Monreal MD Other fdc (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 from Last 3 Months Social History Tobacco Use Types Packs/Day Years Used Date Smoking Tobacco: Never Assessed Sex and Gender Information Value Date Recorded Sex Assigned at Not on file Legal Sex Male 5:38 PM EST Gender Identity Not on file Sexual Orientation Not on file Plan of Treatment Health Maintenance Due Date Last Done Comments DTaP,Tdap,and Td Vaccines (1 - Tdap) 1979 Pneumococcal Vaccine: 50+ Ye ars (1 of 2 - PCV) 1979 Pneumococcal Vaccine: Pediat rics (0 to 5 Years) and At-Risk Patients (6 to 64 Years) (1 of 2 - PCV) 1979 Zoster Vaccines (1 of 2) 2010 Colorectal Cancer Screening: Colonoscopy 09/24/2022 Depression Screening 09/24/2022 HIV Screening 09/24/2022 Hepatitis C Screening 09/24/2022 Medicare Annual Wellness Visit 09/24/2022 Social Influencers of Health Screening 09/24/2022 COVID-19 Vaccine ( - 2023-2 5 season) 2024 Influenza Vaccine (Season Ended) 2025 Cholesterol Screening (Lipid Panel) 10/31/2029 10/31/2024 RSV Immunization Adult Patie nts (1 - 1-dose 75+ series) 2035 HIB Vaccines Aged Out No longer eligi ble based on patient's age to complete this topic HPV Vaccines Aged Out No longer eligi ble based on patient's age to complete this topic Hepatitis A Vaccines Aged Out No long er eligible based on patient's age to complete this topic Hepatitis B Vaccines Aged Out No long er eligible based on patient's age to complete this topic IPV Vaccines Aged Out No longer eligi ble based on patient's age to complete this topic MMR Vaccines Aged Out No longer eligi ble based on patient's age to complete this topic Meningococcal ACWY Vaccine Aged Out N o longer eligible based on patient's age to complete this topic Meningococcal B Vaccine Aged Out No l onger eligible based on patient's age to complete this topic RSV Immunization Patients Un cristofer 20 months Aged Out No longer eligible b ased on patient's age to complete this topic Varicella Vaccines Aged Out No longer eligible based on patient's age to complete this topic Procedures Procedure Name Priority Date/Time Associated Diagnosis Comments LAVENDER - EDTA Routine 02/12/2025 12:00 AM EDT 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 Liver disease, unspecified LAVENDER - EDTA Routine 02/12/2025 12:00 AM EDT Other fdc (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 Liver disease, unspecified FERRITIN Routine 02/12/2025 12:00 AM EDT 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 Liver disease, unspecified IRON AND TIBC Routine 02/12/2025 12:00 AM EDT Other fdc (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 Liver disease, unspecified TRANSFERRIN Routine 02/12/2025 12:00 AM EDT Other fdc (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 Liver disease, unspecified CBC WITH AUTO DIFFERENTIAL Routine 01/31/2025 7:00 [...] V24) Elevated white blood cell count, unspecified RED - PLAIN Routine 12/26/2024 10:29 AM EST Other fdc (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 Chronic hepatic failure without coma (CMS/HCC) CREATININE, SERUM Routine 12/26/2024 10: 29 AM EST Other fdc (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 Chronic hepatic failure without coma (CMS/HCC) BUN Routine 12/26/2024 10:29 AM EST Other fdc (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 Chronic hepatic failure without coma (CMS/HCC) HEMOGLOBIN A1C Routine 12/06/2024 5:40 AM EST 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 VITAMIN D 25 HYDROXY Routine 12/06/2024 5:40 AM EST Other fdc (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 LAVENDER - EDTA Routine 11/27/2024 6:50 AM EST 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 MISCELLANEOUS LAB TEST Routine 11/27/2024 6:50 AM EST Other fdc (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 TUMOR NECROSIS FACTOR ALPHA Routine 11/27/2024 6:50 AM EST 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 C REACTIVE PROTEIN, HIGH SENSITIVITY Routine 11/27/2024 6:50 AM EST Other fdc (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 INTERLEUKIN-6 Routine 11/27/2024 6:50 AM EST 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 NEURON SPECIFIC ENOLASE, SERUM Routine 11/27/2024 6:50 AM EST Other fdc (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 METHYLMALONIC ACID, SERUM Routine 11/27/2024 6:50 AM EST Other fdc (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 THYROID STIMULATING HORMONE WITH REFLEX TO FREE T4 AND FREE T3 Routine 11/27/2024 6:50 AM EST 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 Pathologist [facility] Extra Tube Hold for add-ons. 02/15/2025 10:01 AM EDT [facility] Comment:Auto resulted. Blood Venous blood specimen / Unknown 02/12/2025 02/12/2025 7:13 AM EDT us Armando Monreal MD LAB BLOOD ORDERABLES Final Resul t [facility] [address] [place] [address], * Iron and TIBC (02/12/2025 12:00 AM EDT) Pathologist [facility] Iron 67 50 - 160 mcg/dL LAB CHEMISTRY METHOD 02/12/2025 8:10 AM EDT [facility] TIBC 311 250 - 450 mcg/dL LAB CHEMISTRY METHOD 02/12/2025 8:10 AM EDT [facility] Iron Saturation 22 20 - 50 % LAB CHEMISTRY METHOD 02/12/2025 8:10 AM EDT [facility] Blood Venous blood specimen / Unknown 02/12/2025 02/12/2025 7:13 AM EDT us Armando Monreal MD LAB BLOOD ORDERABLES Final Resul t [facility] [address] [place] [address], [place] [phone] * Transferrin (02/12/2025 12:00 AM EDT) Transferrin 257 200 - 360 mg/dL 02/14/2025 4:43 AM EDT [facility] Comment: Test performed at [facility], [address] , [place], [place] ??[address] ? [phone] Madeline Tan MD, PhD - Swamper Blood Venous blood specimen / Unknown 02/12/2025 02/12/2025 7:13 AM EDT us Armando Monreal MD LAB BLOOD ORDERABLES Final Resul t [facility] [address] [place] [address] * Ferritin (02/12/2025 12:00 AM EDT) Ferritin 181 26 - 388 ng/mL LAB CHEMISTRY METHOD 02/12/2025 8:10 AM EDT [facility] Blood Venous blood specimen / Unknown 02/12/2025 02/12/2025 7:13 AM EDT us Armando Monreal MD LAB BLOOD ORDERABLES Final Resul t [facility] [address] [place] [address], * (ABNORMAL) CBC auto differential (01/31/2025 7:00 AM EDT) WBC 11.6(H) 4.8 - 10.8 K/mcL LAB HEMETOLOGY METHOD 01/31/2025 10:17 AM T [facility] RBC 5.80(H) 4.50 - 5.50 M/mcL LAB HEMETOLOGY METHOD 01/31/2025 10:17 AM T [facility] Hemoglobin 12.7(L) 13.5 - 17.5 g/dL LAB HEMETOLOGY METHOD 01/31/2025 10:17 AM [facility] Hematocrit 39.1(L) 42.0 - 54.0 % LAB HEMETOLOGY METHOD [facility]25 [facility] MCV 67.6(L) 79.0 - 98.0 FL LAB HEMETOLOGY METHOD 01/31/2025 10:17 AM [facility] MCH 22.0(L) 27.0 - 32.0 pcg LAB HEMETOLOGY METHOD 01/31/2025 10:17 AM [facility] MCHC 32.5 32.0 - 37.0 g/dL LAB HEMETOLOGY METHOD 01/31/2025 10:17 AM [facility] RDW 18.6(H) 11.0 - 15.0 % LAB HEMETOLOGY METHOD 01/31/2025 10:17 AM [facility] Platelets 327 130 - 400 K/mcL LAB HEMETOLOGY METHOD 01/31/2025 10:17 AM [facility] MPV 12.8(H) 7.0 - 11.0 FL LAB HEMETOLOGY METHOD 01/31/2025 10:17 AM [facility] NRBC 0.8 <1.0 % LAB HEMETOLOGY METHOD 01/31/2025 10:17 AM [facility] NRBC Absolute 0.09 <0.10 K/mcL LAB HEMETOLOGY METHOD 01/31/2025 10:17 AM [facility] Neutrophils Relative 49.6 % LAB HEMETOLOGY METHOD 01/31/2025 10:17 AM [facility] Lymphocytes Relative 37.0 % LAB HEMETOLOGY METHOD 01/31/2025 10:17 AM [facility] Monocytes Relative 8.8 % LAB HEMETOLOGY METHOD 01/31/2025 10:17 AM [facility] Eosinophils Relative 2.9 % LAB HEMETOLOGY METHOD 01/31/2025 10:17 AM [facility] Basophils Relative 1.3 % LAB HEMETOLOGY METHOD 01/31/2025 10:17 AM [facility] Immature Granulocytes Relative 0.4 % LAB HEMETOLOGY METHOD 01/31/2025 10:17 AM [facility] Neutrophils Absolute 5.76 1.50 - 7.00 K/mcL LAB HEMETOLOGY METHOD 01/31/2025 10:17 AM [facility] Lymphocytes Absolute 4.31 1.00 - 5.00 K/mcL LAB HEMETOLOGY METHOD 01/31/2025 10:17 AM [facility] Monocytes Absolute 1.03(H) 0.20 - 1.00 K/mcL LAB HEMETOLOGY METHOD 01/31/2025 10:17 AM [facility] Eosinophils Absolute 0.34 0.00 - 0.50 K/mcL LAB HEMETOLOGY METHOD 01/31/2025 10:17 AM EDT [facility] Basophils Absolute 0.15 0.00 - 0.20 K/mcL LAB HEMETOLOGY METHOD 01/31/2025 10:17 AM EDT [facility] Immature Granulocytes Absolute 0.05(H) 0.00 - 0.03 K/[facility] LAB HEMETOLOGY METHOD 01/31/2025 10:17 AM EDT [facility] Blood Venous blood specimen / Unknown 01/31/2025 7:00 AM EDT 01/31/2025 8:05 AM EDT us Armando Monreal MD LAB BLOOD ORDERABLES Final Resul t [facility] [address] [place] [address], [place] [phone] * Levetiracetam level (01/31/2025 7:00 AM EDT) Levetiracetam 10.5 3.0 - 60.0 ug/mL 02/03/2025 6:13 AM EDT [facility] Comment: Steady state trough serum or plasma levels following doses of 1000 to 3000 mg/Day: ??3 to 37 ug/mL. The same dosage regimen will typically result in peak levels of 10 to 60 ug/mL, at approximately 1.5 hours post dose. If applicable, any drug confirmation testing reported here was developed and the performance characteristics determined by [facility]. This confirmation testing has not been cleared or approved by the FDA. The laboratory is regulated under CLIA as qualified to perform high-complexity testing. This test is used for patient testing purposes. It should not be regarded as investigational or for research. Test performed at [facility], [address] [facility], [place], [place] ??[address] ? [phone] Madeline Tan MD, PhD - Swamper Blood Venous blood specimen / Unknown 01/31/2025 7:00 AM EDT 01/31/2025 8:05 AM EDT us Armando Monreal MD LAB BLOOD ORDERABLES Final Resul t Performing Organization Address City/[facility]/ZIP Co de Phone Number [facility] [address] [place] [address] * Vitamin B1 (01/31/2025 7:00 AM EDT) Vitamin B1 Whole Blood 73 38 - 122 ug/L 02/10/2025 2:50 PM EDT [facility] Comment: This test was developed and the performance characteristics determined by [facility]. It has not been cleared or approved by the FDA. The laboratory is regulated under CLIA as qualified to perform high-complexity testing. This test is used for patient testing purposes. It should not be regarded as investigational or for research. Test performed at [facility], [address] , [place], [place] ??[address] ? [phone] Madeline Tan MD, PhD - Swamper Blood Venous blood specimen / Unknown 01/31/2025 7:00 AM EDT 01/31/2025 8:05 AM EDT us Armando Monreal MD LAB BLOOD ORDERABLES Final Resul t Performing Organization Address [facility]/ZIP Co de Phone Number [facility] [address] [place] [address] * Vitamin B12 (01/31/2025 7:00 AM EDT) Vitamin B-12 453 250 - 900 pcg/mL LAB CHEMISTRY METHOD 01/31/2025 9:41 AM EDT [facility] Blood Venous blood specimen / Unknown 01/31/2025 7:00 AM EDT 01/31/2025 8:05 AM EDT us Armando Monreal MD LAB BLOOD ORDERABLES Final Resul t Performing Organization Address City/[facility]/ZIP Co de Phone Number [facility] [address] [place] [address], [place] [phone] * (ABNORMAL) Ammonia (01/31/2025 7:00 AM EDT) Pathologist [facility] Ammonia 54(H) 11 - 35 mcmol/L LAB CHEMISTRY METHOD 01/31/2025 8:58 AM EDT [facility] Blood Venous blood specimen / Unknown 01/31/2025 7:00 AM EDT 01/31/2025 8:05 AM EDT us Armando Monreal MD LAB BLOOD ORDERABLES Final Resul t Performing Organization Address [facility]/ZIP Co de Phone Number [facility] [address] [place] [address], [place] [phone] * Valproic acid level, total (01/31/2025 7:00 AM EDT) Pathologist [facility] Valproic Acid, Total 60 50 - 100 mcg/mL LAB CHEMISTRY METHOD 01/31/2025 8:58 AM EDT [facility] Blood Venous blood specimen / Unknown 01/31/2025 7:00 AM EDT 01/31/2025 8:05 AM EDT us Armando Monreal MD LAB BLOOD ORDERABLES Final Resul t Performing Organization Address [facility] de Phone Number [facility] [address] [place] [address], [place] [phone] * (ABNORMAL) Comprehensive metabolic panel (01/31/2025 7:00 AM EDT) [facility] Sodium 141 133 - 145 mmol/L LAB CHEMISTRY METHOD 01/31/2025 9:40 AM EDT [facility] Potassium 4.8 3.5 - 5.5 mmol/L LAB CHEMISTRY METHOD 01/31/2025 9:40 AM EDT [facility] Chloride 107 96 - 110 mmol/L LAB CHEMISTRY METHOD 01/31/2025 9:40 AM EDT [facility] CO2 26 21 - 32 mmol/L LAB CHEMISTRY METHOD 01/31/2025 9:40 AM [facility] Anion Gap 8 3 - 11 LAB CHEMISTRY METHOD 01/31/2025 9:40 AM [facility] Glucose 130(H) 70 - 100 mg/dL LAB CHEMISTRY METHOD 01/31/2025 9:40 AM [facility] BUN 14 5 - 25 mg/dL LAB CHEMISTRY METHOD 01/31/2025 9:40 AM [facility] Creatinine 0.59(L) 0.70 - 1.30 mg/dL LAB CHEMISTRY METHOD 01/31/2025 9:40 AM [facility] eGFR 108 >=60 mL/min/1. 73m2 LAB CHEMISTRY METHOD 01/31/2025 9:40 AM [facility] Comment:Calculation based on the??Chronic Kidney Disease Epidemiology Collaboration (CKD-EPI) equation refit??without adjustment for race. BUN/Creatinine Ratio 23.7 LAB CHEMISTRY METHOD 01/31/2025 9:40 AM [facility] Calcium 9.3 8.5 - 10.5 mg/dL LAB CHEMISTRY METHOD 01/31/2025 9:40 AM [facility] AST (SGOT) 14 10 - 42 unit/L LAB CHEMISTRY METHOD 01/31/2025 9:40 AM [facility] ALT (SGPT) 14 10 - 60 unit/L LAB CHEMISTRY METHOD 01/31/2025 9:40 AM [facility] Alkaline Phosphatase 71 42 - 121 unit/L LAB CHEMISTRY METHOD 01/31/2025 9:40 AM [facility] Total Protein 7.3 6.0 - 8.0 g/dL LAB CHEMISTRY METHOD 01/31/2025 9:40 AM [facility] Albumin 3.2 3.2 - 5.0 g/dL LAB CHEMISTRY METHOD 01/31/2025 9:40 AM [facility] Total Bilirubin 0.5 0.0 - 1.4 mg/dL LAB CHEMISTRY METHOD 01/31/2025 9:40 AM EDT [facility] Blood Venous blood specimen / Unknown 01/31/2025 7:00 AM EDT 01/31/2025 8:05 AM EDT us Armando Monreal MD LAB BLOOD ORDERABLES Final Resul t Performing Organization Address City/[facility]/ZIP Co de Phone Number [facility] [address] [place] [address], [place] [phone] * Red tube (12/26/2024 10:29 AM EST) Extra Tube Hold for add-ons. 12/26/2024 2:01 PM EST [facility] Comment:Auto resulted. Blood Venous blood specimen / Unknown 12/26/2024 10:29 AM EST 12/26/2024 12:55 PM EST us Armando Monreal MD LAB BLOOD ORDERABLES Final Resul t Performing Organization Address [facility] de Phone Number [facility] [address] [place] [address], [place] [phone] * (ABNORMAL) Creatinine (12/26/2024 10:29 AM EST) Creatinine 0.67(L) 0.70 - 1.30 mg/dL LAB CHEMISTRY METHOD 12/26/2024 1:24 PM EST [facility] eGFR 104 >=60 mL/min/1. 73m2 LAB CHEMISTRY METHOD 12/26/2024 1:24 PM EST [facility] Comment:Calculation based on the??Chronic Kidney Disease Epidemiology Collaboration (CKD-EPI) equation refit??without adjustment for race. Blood Venous blood specimen / Unknown 12/26/2024 10:29 AM EST 12/26/2024 12:55 PM EST us Armando Monreal MD LAB BLOOD ORDERABLES Final Resul t Performing Organization Address [facility]/ZIP Co de Phone Number [facility] [address] [place] [address], [place] [phone] * BUN (12/26/2024 10:29 AM EST) Pathologist [facility] BUN 11 5 - 25 mg/dL LAB CHEMISTRY METHOD 12/26/2024 1:24 PM EST [facility] Blood Venous blood specimen / Unknown 12/26/2024 10:29 AM EST 12/26/2024 12:55 PM EST us Armando Monreal MD LAB BLOOD ORDERABLES Final Resul t Performing Organization Address [facility] Co de Phone Number [facility] [address] [place] [address], [place] [phone] * Vitamin D 25 hydroxy (12/06/2024 5:40 AM EST) [facility] Vit D, 25-Hydroxy 63.7 30.0 - 80.0 ng/mL LAB CHEMISTRY METHOD 12/06/2024 7:51 AM EST [facility] Blood Venous blood specimen / Unknown 12/06/2024 5:40 AM EST 12/06/2024 6:57 AM EST us Armando Monreal MD LAB BLOOD ORDERABLES Final Resul t Performing Organization Address City/[facility]/ZIP Co de Phone Number [facility] [address] [place] [address], [place] [phone] * Hemoglobin A1c (12/06/2024 5:40 AM EST) [facility] Hemoglobin A1C 6.3 <6.5 % LAB CHEMISTRY METHOD 12/06/2024 11:24 AM EST [facility] Mean Bld Glu Estim. 134 mg/dL LAB CHEMISTRY METHOD 12/06/2024 11:24 AM EST [facility] Blood Venous blood specimen / Unknown 12/06/2024 5:40 AM EST 12/06/2024 6:57 AM EST us Armando Monreal MD LAB BLOOD ORDERABLES Final Resul t Performing Organization Address [facility]/ZIP Co de Phone Number [facility] [address] [place] [address], [place] [phone] * Thyroid stimulating hormone with reflex to free t4 and free t3 (11/27/2024 6:50 AM EST) TSH 2.24 0.40 - 4.00 mcIU/mL LAB CHEMISTRY METHOD 11/27/2024 8:55 AM EST [facility] Blood Venous blood specimen / Unknown 11/27/2024 6:50 AM EST 11/27/2024 8:16 AM EST us Armando Monreal MD LAB BLOOD ORDERABLES Final Resul t Performing Organization Address [facility] Co de Phone Number [facility] [address] [place] [address], [place] [phone] * (ABNORMAL) Vitamin B12 and folate (11/27/2024 6:50 AM EST) Vitamin B-12 321 250 - 900 pcg/mL LAB CHEMISTRY METHOD 11/27/2024 9:09 AM EST [facility] Folate >20.0(H) 2.8 - 17.0 ng/ml LAB CHEMISTRY METHOD 11/27/2024 9:09 AM EST [facility] Blood Venous blood specimen / Unknown 11/27/2024 6:50 AM EST 11/27/2024 8:16 AM EST us Armando Monreal MD LAB BLOOD ORDERABLES Final Resul t Performing Organization Address City/[facility]/ZIP Co de Phone Number [facility] [address] [place] [address], * Tumor necrosis factor alpha (11/27/2024 6:50 AM EST) Tumor Necrosis Factor-Alpha 1.1 0.0 - 2.2 pg/mL 11/29/2024 3:05 PM EST [facility] Blood Venous blood specimen / Unknown 11/27/2024 6:50 AM EST 11/27/2024 8:16 AM EST Narrative [facility] - 11/29/2024 3:05 PM EST Test(s) [id number] Necrosis Factor-Alpha This test was developed and its performance characteristics determined by [facility]. It has not been cleared or approved by the Food and Drug Administration. Performed at: ??01 - [facility] ??[id number] Ob Tech: Gokul Joseph MD, Phone: ??[phone] Armando Monreal MD LAB BLOOD ORDERABLES Final Resul t [facility] * Neuron specific enolase, serum (11/27/2024 6:50 AM EST) Neuron Specific Enolase 9.9 <=12.7 ng/mL 12/01/2024 4:45 PM EST [facility] Comment: INTERPRETIVE INFORMATION: Neuron Specific Enolase in Serum This assay is performed using the [employer] NSE Kryptor Immunoassay. ??Results obtained with different assay methods or kits cannot be used interchangeably. ??Results cannot be interpreted as absolute evidence of the presence or absence of malignant disease. This test was developed and its performance characteristics determined by [facility]. It has not been cleared or approved by the [place] Food and Drug Administration. This test was performed in a CLIA certified laboratory and is intended for clinical purposes. Performed By: [facility] [address] [place] [id number] Cell Plasterer: Toño Millan MD, PhD CLIA Number: [id number] Blood Venous blood specimen / Unknown 11/27/2024 6:50 AM EST 11/27/2024 8:16 AM EST Armando Monreal MD LAB BLOOD ORDERABLES Final Resul t [facility] [address] [place] [address] * - Miscellaneous Test (11/27/2024 6:50 AM EST) Miscellaneous Test COMMENT 2024 4:05 PM EST [facility] Comment: Test Ordered: [id number] [employer] Test(s) [id number] This test was developed and its performance [...] 12/03/2024 4:05 PM EST Performed At: [address] [id number] Jake Hodgson MD Ph:[phone] Performed At: [address] [address] [address], [address] [place], [place] [id number] Aly Benson MD Ph:[phone] Armando Monreal MD LAB BLOOD ORDERABLES Final Resul t [facility] * Methylmalonic acid, serum (11/27/2024 6:50 AM EST) Methylmalonic Acid 0.15 <0.40 umol/L 11/30/2024 11:24 AM EST [facility] Comment: If applicable, any drug confirmation testing reported here was developed and the performance characteristics determined by [facility]. This confirmation testing has not been cleared or approved by the FDA. The laboratory is regulated under CLIA as qualified to perform high-complexity testing. This test is used for patient testing purposes. It should not be regarded as investigational or for research. Test performed at [facility], [address], [place], [place] ??[address] ? [phone] Madeline Tan MD, PhD - Swamper Blood Venous blood specimen / Unknown 11/27/2024 6:50 AM EST 11/27/2024 8:16 AM EST us Armando Monreal MD LAB BLOOD ORDERABLES Final Resul t [facility] [address] [place] [address] * Interleukin-6 (11/27/2024 6:50 AM EST) Pathologist [facility] Interleukin-6, Serum 6.9 0.0 - 13.0 pg/mL [...] [facility] - 11/29/2024 2:05 PM EST Test(s) [id number], Serum has not been FDA cleared or [...] revoked sooner. Performed at: ??01 - [facility] [address] ??[id number] Ob Tech: Gokul Joseph MD, Phone: ??[phone] Armando Monreal MD LAB BLOOD ORDERABLES Final Resul t Performing Organization Address [facility] Co de Phone Number [facility] * C reactive protein, high sensitivity (11/27/2024 6:50 AM EST) Pathologist [facility] CRP, High Sensitivity 3.97 mg/L LAB CHEMISTRY METHOD 11/27/2024 8:46 AM EST [facility] Comment: Cardio CRP Relative Risk Categories [...] ORDERABLES Final Resul t Performing Organization Address [facility] Co de Phone Number [facility] [address] [place] [address], [place] [phone] * (ABNORMAL) Lipid panel with reflex to direct LDL (10/31/2024 8:09 AM EST) [facility] Cholesterol 192 0 - 200 mg/dL LAB CHEMISTRY METHOD 10/31/2024 9:44 AM EST [facility] Triglycerides 151(H) 0 - 150 mg/dL LAB CHEMISTRY METHOD 10/31/2024 9:44 AM EST [facility] HDL 46 >=40 mg/dL LAB CHEMISTRY METHOD 10/31/2024 9:44 AM EST [facility] LDL Calculated 116(H) 0 - 100 mg/dL LAB CHEMISTRY METHOD 10/31/2024 9:44 AM EST [facility] VLDL Cholesterol Hitesh 30.2 mg/dL LAB CHEMISTRY METHOD 10/31/2024 9:44 AM EST [facility] Non HDL Chol. (LDL+VLDL) 146(H) <145 mg/dL LAB CHEMISTRY METHOD 10/31/2024 9:44 AM EST [facility] Chol/HDL Ratio 4.2 0.0 - 4.4 LAB CHEMISTRY METHOD 10/31/2024 9:44 AM [facility] Blood Venous blood specimen / Unknown 10/31/2024 8:09 AM EST 10/31/2024 8:47 AM EST us Armando Monreal MD LAB BLOOD ORDERABLES Final Resul t [facility] [address] [place] [address], from Last 3 Months or Most Recently Relevant to Health Maintenance Insurance [employer] [address] [address] MEDICARE MEDICAID - [place] Care Teams Supervisor Histology Relationship Specialty Start Date End Date Armando Monreal MD [address] [place] [address] [address] HANS Hobson PCP - General Internal Medicine 12/06/24
--- OUTSIDE RECORDS SUMMARY | 2025-02-17 16:33 | XMS_ITS | Encounter Summary ---
Author Organization [employer] Address [address] [place] [address] Care Team Providers Care Breakfast Cook Name Role Phone Armando Monreal MD Primary Care Provider [phone] Encounter Details Date Type Department Care Team (Late st Contact Info) Description 10/07/2024 Lab Requisition [facility] - Main Lab [address] [facility] [place] [address] Armando Monreal MD [address] [place] [address] [address] [place] Unspecified intracranial injury with loss of consciousness of unspecified duration, sequela (CMS/HCC V24) Social History Tobacco Use Types Packs/Day Years [...] Procedure Name Priority Date/Time Associated Diagnosis Comments PROSTATE SPECIFIC ANTIGEN SCREEN STAT 10/07/2024 6:30 PM EST Unspecified intracranial injury with loss of consciousness of unspecified duration, sequela (CMS/HCC) SST - GOLD Routine 10/07/2024 6:30 PM EST Unspecified intracranial injury with loss of consciousness of unspecified duration, sequela (CMS/HCC) CBC WITH AUTO DIFFERENTIAL STAT 10/07/2024 6:30 PM EST Unspecified intracranial injury with loss of consciousness of unspecified duration, sequela (CMS/HCC) VITAMIN D 25 HYDROXY STAT 10/07/2024 6:30 PM EST Unspecified intracranial injury with loss of consciousness of unspecified duration, sequela (CMS/HCC) CBC AND DIFFERENTIAL STAT 10/07/2024 6:30 PM EST Unspecified intracranial injury with loss of consciousness of unspecified duration, sequela (CMS/HCC) VALPROIC ACID LEVEL, TOTAL AND FREE STAT 10/07/2024 6:30 PM EST Unspecified intracranial injury with loss of consciousness of unspecified duration, sequela (CMS/HCC) VITAMIN B1 STAT 10/07/2024 6:30 PM EST Unspecified intracranial injury with loss of consciousness of unspecified duration, sequela (CMS/HCC) CALCIUM STAT 10/07/2024 6:30 PM EST Unspecified intracranial injury with loss of consciousness of unspecified duration, sequela (CMS/HCC) AMMONIA STAT 10/07/2024 6:30 PM EST Unspecified intracranial injury with loss of consciousness of unspecified duration, sequela (CMS/HCC) COMPREHENSIVE METABOLIC PANEL STAT 10/07/2024 6:30 PM EST Unspecified intracranial injury with loss of consciousness of unspecified duration, sequela (CMS/HCC) documented in this encounter Results * (ABNORMAL) Comprehensive metabolic panel (10/07/2024 6:30 PM EST) Sodium 141 133 - 145 mmol/L LAB CHEMISTRY METHOD 10/07/2024 11:29 PM [facility] Potassium 4.7 3.5 - 5.5 mmol/L LAB CHEMISTRY METHOD 10/07/2024 11:29 PM [facility] Chloride 108 96 - 110 mmol/L LAB CHEMISTRY METHOD 10/07/2024 11:29 PM [facility] CO2 27 21 - 32 mmol/L LAB CHEMISTRY METHOD 10/07/2024 11:29 PM [facility] Anion Gap 6 3 - 11 LAB CHEMISTRY METHOD 10/07/2024 11:29 PM [facility] Glucose 117(H) 70 - 100 mg/dL LAB CHEMISTRY METHOD 10/07/2024 11:29 PM [facility] BUN 11 5 - 25 mg/dL LAB CHEMISTRY METHOD 10/07/2024 11:29 PM [facility] Creatinine 0.63(L) 0.70 - 1.30 mg/dL LAB CHEMISTRY METHOD 10/07/2024 11:29 PM [facility] eGFR 106 >=60 mL/min/1. 73m2 LAB CHEMISTRY METHOD 10/07/2024 11:29 PM [facility] Comment:Calculation based on the??Chronic Kidney Disease Epidemiology Collaboration (CKD-EPI) equation refit??without adjustment for race. BUN/Creatinine Ratio 17.5 LAB CHEMISTRY METHOD 10/07/2024 11:29 PM [facility] Calcium 9.3 8.5 - 10.5 mg/dL LAB CHEMISTRY METHOD 10/07/2024 11:29 PM [facility] AST (SGOT) 13 10 - 42 unit/L LAB CHEMISTRY METHOD 10/07/2024 11:29 PM [facility] ALT (SGPT) 17 10 - 60 unit/L LAB CHEMISTRY METHOD 10/07/2024 11:29 PM [facility] Alkaline Phosphatase 65 42 - 121 unit/L LAB CHEMISTRY METHOD 10/07/2024 11:29 PM [facility] Total Protein 7.3 6.0 - 8.0 g/dL LAB CHEMISTRY METHOD 10/07/2024 11:29 PM [facility] Albumin 3.5 3.2 - 5.0 g/dL LAB CHEMISTRY METHOD 10/07/2024 11:29 PM [facility] Total Bilirubin 0.6 0.0 - 1.4 mg/dL LAB CHEMISTRY METHOD 10/07/2024 11:29 PM [facility] Blood Venous blood specimen / Unknown 10/07/2024 6:30 PM EST 10/07/2024 7:29 PM EST us Armando Monreal MD LAB BLOOD ORDERABLES Final Resul t Performing Organization Address City/[facility]/ZIP Co de Phone Number [facility] [address] [place] [address], [place] [phone] * SST tube (10/07/2024 6:30 PM EST) Pathologist [facility] Extra Tube Hold for add-ons. 10/08/2024 8:01 AM EST [facility] Comment:Auto resulted. Blood Venous blood specimen / Unknown 10/07/2024 6:30 PM EST 10/07/2024 7:25 PM EST us Armando Monreal MD LAB BLOOD ORDERABLES Final Resul t Performing Organization Address [facility]/ZIP Co de Phone Number [facility] [address] [place] [address], [place] [phone] * (ABNORMAL) CBC auto differential (10/07/2024 6:30 PM EST) [facility] WBC 10.8 4.8 - 10.8 K/mcL LAB HEMETOLOGY METHOD 10/07/2024 9:08 PM [facility] RBC 5.60(H) 4.50 - 5.50 M/mcL LAB HEMETOLOGY METHOD 10/07/2024 9:08 PM [facility] Hemoglobin 12.4(L) 13.5 - 17.5 g/dL LAB HEMETOLOGY METHOD 10/07/2024 9:08 PM [facility] Hematocrit 37.9(L) 42.0 - 54.0 % LAB HEMETOLOGY METHOD 10/07/2024 9:08 PM [facility] MCV 67.3(L) 79.0 - 98.0 FL LAB HEMETOLOGY METHOD 10/07/2024 9:08 PM [facility] MCH 22.0(L) 27.0 - 32.0 pcg LAB HEMETOLOGY METHOD 10/07/2024 9:08 PM [facility] MCHC 32.7 32.0 - 37.0 g/dL LAB HEMETOLOGY METHOD 10/07/2024 9:08 PM [facility] RDW 18.9(H) 11.0 - 15.0 % LAB HEMETOLOGY METHOD 10/07/2024 9:08 PM [facility] Platelets 307 130 - 400 K/mcL LAB HEMETOLOGY METHOD 10/07/2024 9:08 PM [facility] MPV LAB HEMETOLOGY METHOD 10/07/2024 9:08 PM [facility] Comment:Not Measured NRBC 1.6(H) <1.0 % LAB HEMETOLOGY METHOD 10/07/2024 9:08 PM [facility] NRBC Absolute 0.17(H) <0.10 K/mcL LAB HEMETOLOGY METHOD 10/07/2024 9:08 PM [facility] Neutrophils Relative 41.0 % LAB HEMETOLOGY METHOD 10/07/2024 9:08 PM [facility] Lymphocytes Relative 45.3 % LAB HEMETOLOGY METHOD 10/07/2024 9:08 PM [facility] Monocytes Relative 9.3 % LAB HEMETOLOGY METHOD 10/07/2024 9:08 PM [facility] Eosinophils Relative 2.7 % LAB HEMETOLOGY METHOD 10/07/2024 9:08 PM [facility] Basophils Relative 1.1 % LAB HEMETOLOGY METHOD 10/07/2024 9:08 PM [facility] Immature Granulocytes Relative 0.6 % LAB HEMETOLOGY METHOD 10/07/2024 9:08 PM [facility] Neutrophils Absolute 4.44 1.50 - 7.00 K/mcL LAB HEMETOLOGY METHOD 10/07/2024 9:08 PM EST [facility] Lymphocytes Absolute 4.90 1.00 - 5.00 K/mcL LAB HEMETOLOGY METHOD 10/07/2024 9:08 PM EST [facility] Monocytes Absolute 1.01(H) 0.20 - 1.00 K/mcL LAB HEMETOLOGY METHOD 10/07/2024 9:08 PM EST [facility] Eosinophils Absolute 0.29 0.00 - 0.50 K/[facility] LAB HEMETOLOGY METHOD 10/07/2024 9:08 PM EST [facility] Basophils Absolute 0.12 0.00 - 0.20 K/[facility] LAB HEMETOLOGY METHOD 10/07/2024 9:08 PM EST [facility] Immature Granulocytes Absolute 0.06(H) 0.00 - 0.03 K/[facility] HEMETOLOGY METHOD 10/07/2024 9:08 PM EST [facility] Blood Venous blood specimen / Unknown 10/07/2024 6:30 PM EST 10/07/2024 7:24 PM EST Armando Monreal MD LAB BLOOD ORDERABLES Final Resul t [facility] [address] [place] [address], * Prostate specific antigen screen (10/07/2024 6:30 PM EST) PSA 0.31 0.00 - 4.00 ng/mL LAB CHEMISTRY METHOD 10/08/2024 2:51 AM EST [facility] Blood Venous blood specimen / Unknown 10/07/2024 6:30 PM EST 10/07/2024 7:24 PM EST Narrative [facility] - 10/08/2024 2:51 AM EST The Siemens Advia Centaur Chemiluminescent Immunoassay is used. Results obtained with different assay methods or kits cannot be used interchangeably. Results cannot be interpreted as absolute evidence of the presence or absence of malignant disease. us Armando Monreal MD LAB BLOOD ORDERABLES Final Resul t Performing Organization Address City/[facility]/ZIP Co de Phone Number [facility] [address] [place] [address], [place] [phone] * Valproic acid level, total and free (10/07/2024 6:30 PM EST) Valproic Acid, Free 6.5 4.8 - 17.3 mg/L 10/15/2024 4:22 AM EST [facility] Comment: Note: Non-linear drug binding properties result in the fraction of Free Valproic Acid increasing as total drug increases. The free fraction may range from 5% to 25% for the total drug range of 30-160 mg/L. Valproic Acid 67.9 50.0 - 100.0 mg/L 10/15/2024 4:22 AM EST [facility] Comment: TEST PERFORMED AT: [email or web address] [address] ANGELITA SALAMANCA MD,PHD Blood Venous blood specimen / Unknown 10/07/2024 6:30 PM EST 10/07/2024 7:24 PM EST us Armando Monreal MD LAB BLOOD ORDERABLES Final Resul t Performing Organization Address City/[facility]/ZIP Co de Phone Number [facility] [address] [address] * (ABNORMAL) Ammonia (10/07/2024 6:30 PM EST) Ammonia 57(H) 11 - 35 mcmol/L LAB CHEMISTRY METHOD 10/07/2024 9:54 PM EST [facility] Comment:Hemolysis present Blood Venous blood specimen / Unknown 10/07/2024 6:30 PM EST 10/07/2024 7:24 PM EST us Armando Monreal MD LAB BLOOD ORDERABLES Final Resul t Performing Organization Address City/[facility]/ZIP Co de Phone Number [facility] [address] [place] [address], [place] [phone] * Vitamin D 25 hydroxy (10/07/2024 6:30 PM EST) Pathologist [facility] Vit D, 25-Hydroxy 42.2 30.0 - 80.0 ng/mL LAB CHEMISTRY METHOD 10/08/2024 2:51 AM EST [facility] Comment:Results verified by repeat testing Blood Venous blood specimen / Unknown 10/07/2024 6:30 PM EST 10/07/2024 7:24 PM EST us Armando Monreal MD LAB BLOOD ORDERABLES Final Resul t Performing Organization Address [facility] Co de Phone Number [facility] [address] [place] [address], [place] [phone] * Vitamin B1 (10/07/2024 6:30 PM EST) [facility] Vitamin B1 Whole Blood 95 38 - 122 ug/L 10/11/2024 9:42 AM EST [facility] Comment: This test was developed and the performance characteristics determined by [facility]. It has not been cleared or approved by the FDA. The laboratory is regulated under CLIA as qualified to perform high-complexity testing. This test is used for patient testing purposes. It should not be regarded as investigational or for research. Test performed at [facility], [address] , [place], [place] ??[address] ? [phone] Madeline Tan MD, PhD - [facility] [employer] Blood Venous blood specimen / Unknown 10/07/2024 6:30 PM EST 10/07/2024 7:24 PM EST us Armando Monreal MD LAB BLOOD ORDERABLES Final Resul t Performing Organization Address City/[facility]/ZIP Co de Phone Number [facility] [address] [place] [address] * Calcium (10/07/2024 6:30 PM EST) Calcium 9.4 8.5 - 10.5 mg/dL LAB CHEMISTRY METHOD 10/07/2024 11:27 PM EST [facility] Blood Venous blood specimen / Unknown 10/07/2024 6:30 PM EST 10/07/2024 7:24 PM EST us Armando Monreal MD LAB BLOOD ORDERABLES Final Resul t [facility] [address] [place] [address], documented in this encounter Visit Diagnoses Diagnosis Unspecified intracranial injury with loss of consciousness of unspecified duration, sequela (CMS/HCC V24) documented in this encounter Care Teams Breakfast Cook Relationship Specialty Start Date End Date Armando Monreal MD [address] [place] [address] Dr [address] [place] PCP - General Internal Medicine 12/06/24 documented as of this encounter
--- OUTSIDE RECORDS SUMMARY | 2025-02-17 16:33 | XMS_ITS | Encounter Summary ---
Author Organization [employer] Address [address] [place] [address] Care Team Providers Care Oakes Machine Operator Name Role Phone Armando Monreal MD Primary Care Provider [phone] Encounter Details Date Type Department Care Team (Late st Contact Info) Description 10/31/2024 Lab Requisition [facility] - Main Lab [address] [facility] [place] [address] Armando Monreal MD [address] [place] [address] [address] [place], [place] Other snf (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; Unspecified intracranial injury with loss of consciousness [...] Procedure Name Priority Date/Time Associated Diagnosis Comments RBC MORPHOLOGY REVIEW Routine 10/31/2024 8:09 AM EST 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 Unspecified intracranial injury with loss of consciousness of unspecified duration, sequela (CMS/HCC) LIPID PANEL WITH REFLEX TO DIRECT LDL Routine 10/31/2024 8:09 AM EST Other snf (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 Unspecified intracranial injury with loss of consciousness of unspecified duration, sequela (CMS/HCC) PROSTATE SPECIFIC ANTIGEN DIAGNOSTIC Routine 10/31/2024 8:09 AM EST 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 Unspecified intracranial injury with loss of consciousness of unspecified duration, sequela (CMS/HCC) CBC WITH AUTO DIFFERENTIAL Routine 10/31/2024 8:09 AM EST 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 Unspecified intracranial injury with loss of consciousness of unspecified duration, sequela (CMS/HCC) VITAMIN D 25 HYDROXY Routine 10/31/2024 8:09 AM EST Other snf (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 Unspecified intracranial injury with loss of consciousness of unspecified duration, sequela (CMS/HCC) LEVETIRACETAM LEVEL Routine 10/31/2024 8 :09 AM EST Other snf (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 Unspecified intracranial injury with loss of consciousness of unspecified duration, sequela (CMS/HCC) CBC AND DIFFERENTIAL Routine 10/31/2024 8:09 AM EST Other snf (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 Unspecified intracranial injury with loss of consciousness of unspecified duration, sequela (CMS/HCC) THYROID STIMULATING HORMONE Routine 10/31/2024 8:09 AM EST Other snf (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 Unspecified intracranial injury with loss of consciousness of unspecified duration, sequela (CMS/HCC) THYROXINE FREE Routine 10/31/2024 8:09 AM EST Other snf (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 Unspecified intracranial injury with loss of consciousness of unspecified duration, sequela (CMS/HCC) HEMOGLOBIN A1C Routine 10/31/2024 8:09 AM EST Other snf (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 Unspecified intracranial injury with loss of consciousness of unspecified duration, sequela (CMS/HCC) AMMONIA Routine 10/31/2024 8:09 AM EST Other snf (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 Unspecified intracranial injury with loss of consciousness of unspecified duration, sequela (CMS/HCC) VALPROIC ACID LEVEL, TOTAL Routine 10/31/2024 8:09 AM EST 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 Unspecified intracranial injury with loss of consciousness of unspecified duration, sequela (CMS/HCC) COMPREHENSIVE METABOLIC PANEL Routine 10/31/2024 8:09 AM EST 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 Unspecified intracranial injury with loss of consciousness of unspecified duration, sequela (CMS/HCC) documented in this encounter Results * (ABNORMAL) RBC morphology review (10/31/2024 8:09 AM EST) Rbc Morphology Present( A) Consistent with indices, Normal for LAB HEMETOLOGY METHOD 10/31/2024 9:31 AM EST [facility] Platelet Morphology - WAM See Note(A) Normal LAB HEMETOLOGY METHOD 10/31/2024 9:31 AM EST [facility] Comment:PLT: Normal [place] Bodies Present Present( A) (none) LAB HEMETOLOGY METHOD 10/31/2024 9:31 AM EST [facility] Blood Venous blood specimen / Unknown 10/31/2024 8:09 AM EST 10/31/2024 8:47 AM EST us Armando Monreal MD LAB BLOOD ORDERABLES Final Resul t [facility] [address] [place] [address], * (ABNORMAL) CBC auto differential (10/31/2024 8:09 AM EST) WBC 11.9(H) 4.8 - 10.8 K/mcL LAB HEMETOLOGY METHOD 10/31/2024 9:31 AM EST [facility] RBC 6.00(H) 4.50 - 5.50 M/mcL LAB HEMETOLOGY METHOD 10/31/2024 9:31 AM EST [facility] Hemoglobin 13.1(L) 13.5 - 17.5 g/dL LAB HEMETOLOGY METHOD 10/31/2024 9:31 AM [facility] Hematocrit 40.9(L) 42.0 - 54.0 % LAB HEMETOLOGY METHOD 10/31/2024 9:31 AM [facility] MCV 67.9(L) 79.0 - 98.0 FL LAB HEMETOLOGY METHOD 10/31/2024 9:31 AM [facility] MCH 21.8(L) 27.0 - 32.0 pcg LAB HEMETOLOGY METHOD 10/31/2024 9:31 AM [facility] MCHC 32.0 32.0 - 37.0 g/dL LAB HEMETOLOGY METHOD 10/31/2024 9:31 AM [facility] RDW 19.4(H) 11.0 - 15.0 % LAB HEMETOLOGY METHOD 10/31/2024 9:31 AM [facility] Platelets 228 130 - 400 K/mcL LAB HEMETOLOGY METHOD 10/31/2024 9:31 AM [facility] Comment:reviewed by slide [facility] LAB HEMETOLOGY METHOD 10/31/2024 9:31 AM [facility] Comment:Not Measured NRBC 0.8 <1.0 % LAB HEMETOLOGY METHOD 10/31/2024 9:31 AM [facility] NRBC Absolute 0.09 <0.10 K/mcL LAB HEMETOLOGY METHOD 10/31/2024 9:31 AM [facility] Neutrophils Relative 49.9 % LAB HEMETOLOGY METHOD 10/31/2024 9:31 AM [facility] Lymphocytes Relative 38.0 % LAB HEMETOLOGY METHOD 10/31/2024 9:31 AM [facility] Monocytes Relative 7.7 % LAB HEMETOLOGY METHOD 10/31/2024 9:31 AM [facility] Eosinophils Relative 2.7 % LAB HEMETOLOGY METHOD 10/31/2024 9:31 AM [facility] Basophils Relative 1.1 % LAB HEMETOLOGY METHOD 10/31/2024 9:31 AM EST [facility] Immature Granulocytes Relative 0.6 % LAB HEMETOLOGY METHOD 10/31/2024 9:31 AM [facility] Neutrophils Absolute 5.93 1.50 - 7.00 K/[facility] LAB HEMETOLOGY METHOD 10/31/2024 9:31 AM [facility] Lymphocytes Absolute 4.51 1.00 - 5.00 K/[facility] LAB HEMETOLOGY METHOD 10/31/2024 9:31 AM [facility] Monocytes Absolute 0.92 0.20 - 1.00 K/[facility] LAB HEMETOLOGY METHOD 10/31/2024 9:31 AM [facility] Eosinophils Absolute 0.32 0.00 - 0.50 K/[facility] LAB HEMETOLOGY METHOD 10/31/2024 9:31 AM [facility] Basophils Absolute 0.13 0.00 - 0.20 K/[facility] LAB HEMETOLOGY METHOD 10/31/2024 9:31 AM [facility] Immature Granulocytes Absolute 0.07(H) 0.00 - 0.03 K/mcL LAB HEMETOLOGY METHOD 10/31/2024 9:31 AM [facility] Blood Venous blood specimen / Unknown 10/31/2024 8:09 AM EST 10/31/2024 8:47 AM EST us Armando Monreal MD LAB BLOOD ORDERABLES Final Resul t [facility] [address] [place] [address], * Thyroxine free (10/31/2024 8:09 AM EST) Free T4 0.79 0.70 - 1.80 ng/dL LAB CHEMISTRY METHOD 10/31/2024 10:16 AM EST [facility] Blood Venous blood specimen / Unknown 10/31/2024 8:09 AM EST 10/31/2024 8:47 AM EST us Armando Monreal MD LAB BLOOD ORDERABLES Final Resul t [facility] [address] [place] [address], [place] [phone] * Levetiracetam level (10/31/2024 8:09 AM EST) Levetiracetam 8.1 3.0 - 60.0 ug/mL 11/04/2024 6:19 AM EST [facility] Comment: Steady state trough serum or plasma levels following doses of 1000 to 3000 mg/Day: ??3 to 37 ug/mL. The same dosage regimen will typically result in peak levels of 10 to 60 ug/mL, at approximately 1.5 hours post dose. If applicable, any drug confirmation testing reported here was developed and the performance characteristics determined by [facility]. This confirmation testing has not been cleared or approved by the FDA. The laboratory is regulated under CLIA as qualified to perform high-complexity testing. This test is used for patient testing purposes. It should not be regarded as investigational or for research. Test performed at [facility], [address] , [place], [place] ??[address] ? [phone] Madeline Tan MD, PhD - Bundle Packer Blood Venous blood specimen / Unknown 10/31/2024 8:09 AM EST 10/31/2024 8:47 AM EST us Armando Monreal MD LAB BLOOD ORDERABLES Final Resul t [facility] [address] [facility] [place] [address] * Valproic acid level, total (10/31/2024 8:09 AM EST) Valproic Acid, Total 63 50 - 100 mcg/mL LAB CHEMISTRY METHOD 10/31/2024 9:44 AM EST [facility] Blood Venous blood specimen / Unknown 10/31/2024 8:09 AM EST 10/31/2024 8:47 AM EST us Armando Monreal MD LAB BLOOD ORDERABLES Final Resul t Performing Organization Address [facility]/ZIP Co de Phone Number [facility] [address] [place] [address], [place] [phone] * Ammonia (10/31/2024 8:09 AM EST) Ammonia 35 11 - 35 mcmol/L LAB CHEMISTRY METHOD 10/31/2024 9:21 AM EST [facility] Blood Venous blood specimen / Unknown 10/31/2024 8:09 AM EST 10/31/2024 8:47 AM EST us Armando Monreal MD LAB BLOOD ORDERABLES Final Resul t Performing Organization Address [facility] de Phone Number [facility] [address] [place] [address], [place] [phone] * Thyroid stimulating hormone (10/31/2024 8:09 AM EST) TSH 3.23 0.40 - 4.00 mcIU/mL LAB CHEMISTRY METHOD 10/31/2024 10:16 AM EST [facility] Blood Venous blood specimen / Unknown 10/31/2024 8:09 AM EST 10/31/2024 8:47 AM EST us Armando Monreal MD LAB BLOOD ORDERABLES Final Resul t Performing Organization Address [facility] Co de Phone Number [facility] [address] [place] [address], [place] [phone] * Vitamin D 25 hydroxy (10/31/2024 8:09 AM EST) Vit D, 25-Hydroxy 43.2 30.0 - 80.0 ng/mL LAB CHEMISTRY METHOD 10/31/2024 10:16 AM EST [facility] Blood Venous blood specimen / Unknown 10/31/2024 8:09 AM EST 10/31/2024 8:47 AM EST us Armando Monreal MD LAB BLOOD ORDERABLES Final Resul t Performing Organization Address City/[facility]/ZIP Co de Phone Number [facility] [address] [place] [address], * Prostate specific antigen diagnostic (10/31/2024 8:09 AM EST) PSA 0.36 0.00 - 4.00 ng/mL LAB CHEMISTRY METHOD 10/31/2024 10:17 AM EST [facility] Blood Venous blood specimen / Unknown 10/31/2024 8:09 AM EST 10/31/2024 8:47 AM EST Narrative [facility] - 10/31/2024 10:17 AM EST The Siemens Advia Centaur Chemiluminescent Immunoassay is used. Results obtained with different assay methods or kits cannot be used interchangeably. Results cannot be interpreted as absolute evidence of the presence or absence of malignant disease. us Armando Monreal MD LAB BLOOD ORDERABLES Final Resul t Performing Organization Address [facility]/ZIP Co de Phone Number [facility] [address] [place] [address], * Hemoglobin A1c (10/31/2024 8:09 AM EST) Hemoglobin A1C 6.2 <6.5 % LAB CHEMISTRY METHOD 10/31/2024 10:46 AM EST [facility] Mean Bld Glu Estim. 131 mg/dL LAB CHEMISTRY METHOD 10/31/2024 10:46 AM EST [facility] Blood Venous blood specimen / Unknown 10/31/2024 8:09 AM EST 10/31/2024 8:47 AM EST us Armando Monreal MD LAB BLOOD ORDERABLES Final Resul t [facility] [address] [place] [address], [place] [phone] * (ABNORMAL) Lipid panel with reflex to direct LDL (10/31/2024 8:09 AM EST) [facility] Cholesterol 192 0 - 200 mg/dL LAB CHEMISTRY METHOD 10/31/2024 9:44 AM EST [facility] Triglycerides 151(H) 0 - 150 mg/dL LAB CHEMISTRY METHOD 10/31/2024 9:44 AM [facility] HDL 46 >=40 mg/dL LAB CHEMISTRY METHOD 10/31/2024 9:44 AM [facility] LDL Calculated 116(H) 0 - 100 mg/dL LAB CHEMISTRY METHOD 10/31/2024 9:44 AM EST [facility] VLDL Cholesterol Hitesh 30.2 mg/dL LAB CHEMISTRY METHOD 10/31/2024 9:44 AM [facility] Non HDL Chol. (LDL+VLDL) 146(H) <145 mg/dL LAB CHEMISTRY METHOD 10/31/2024 9:44 AM [facility] Chol/HDL Ratio 4.2 0.0 - 4.4 LAB CHEMISTRY METHOD 10/31/2024 9:44 AM [facility] Blood Venous blood specimen / Unknown 10/31/2024 8:09 AM EST 10/31/2024 8:47 AM EST us Armando Monreal MD LAB BLOOD ORDERABLES Final Resul t Performing Organization Address [facility]/ZIP Co de Phone Number [facility] [address] [place] [address], [place] [phone] * (ABNORMAL) Comprehensive metabolic panel (10/31/2024 8:09 AM EST) Sodium 136 133 - 145 mmol/L LAB CHEMISTRY METHOD 10/31/2024 9:44 AM [facility] Potassium 4.9 3.5 - 5.5 mmol/L LAB CHEMISTRY METHOD 10/31/2024 9:44 AM [facility] Chloride 104 96 - 110 mmol/L LAB CHEMISTRY METHOD 10/31/2024 9:44 AM [facility] CO2 28 21 - 32 mmol/L LAB CHEMISTRY METHOD 10/31/2024 9:44 AM [facility] Anion Gap 4 3 - 11 LAB CHEMISTRY METHOD 10/31/2024 9:44 AM [facility] Glucose 132(H) 70 - 100 mg/dL LAB CHEMISTRY METHOD 10/31/2024 9:44 AM [facility] BUN 12 5 - 25 mg/dL LAB CHEMISTRY METHOD 10/31/2024 9:44 AM [facility] Creatinine 0.69(L) 0.70 - 1.30 mg/dL LAB CHEMISTRY METHOD 10/31/2024 9:44 AM [facility] eGFR 103 >=60 mL/min/1. 73m2 LAB CHEMISTRY METHOD 10/31/2024 9:44 AM [facility] Comment:Calculation based on the??Chronic Kidney Disease Epidemiology Collaboration (CKD-EPI) equation refit??without adjustment for race. BUN/Creatinine Ratio 17.4 LAB CHEMISTRY METHOD 10/31/2024 9:44 AM [facility] Calcium 9.5 8.5 - 10.5 mg/dL LAB CHEMISTRY METHOD 10/31/2024 9:44 AM [facility] AST (SGOT) 18 10 - 42 unit/L LAB CHEMISTRY METHOD 10/31/2024 9:44 AM [facility] ALT (SGPT) 23 10 - 60 unit/L LAB CHEMISTRY METHOD 10/31/2024 9:44 AM EST [facility] Alkaline Phosphatase 72 42 - 121 unit/L LAB CHEMISTRY METHOD 10/31/2024 9:44 AM EST [facility] Total Protein 7.6 6.0 - 8.0 g/dL LAB CHEMISTRY METHOD 10/31/2024 9:44 AM EST [facility] Albumin 3.6 3.2 - 5.0 g/dL LAB CHEMISTRY METHOD 10/31/2024 9:44 AM EST [facility] Total Bilirubin 1.0 0.0 - 1.4 mg/dL LAB CHEMISTRY METHOD 10/31/2024 9:44 AM EST [facility] Blood Venous blood specimen / Unknown 10/31/2024 8:09 AM EST 10/31/2024 8:47 AM EST us Armando Monreal MD LAB BLOOD ORDERABLES Final Resul t [facility] [address] [place] [address], documented in this encounter Visit Diagnoses Diagnosis 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
--- OUTSIDE RECORDS SUMMARY | 2025-02-17 16:33 | XMS_ITS | Encounter Summary ---
Author Organization [employer] Address [address] [place] [address] Care Team Providers Care Customer Service Representative Name Role Phone Armando Monreal MD Primary Care Provider [phone] Encounter Details Date Type Department Care Team (Late st Contact Info) Description 09/01/2024 Lab Requisition [facility] - Main Lab [address] [facility] [place] [address] Armando Monreal MD [address] [place] [address] [address] [place], [place] Other jail (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; Encounter for screening for malignant neoplasm of prostate; Unspecified intracranial injury with loss of consciousness [...] Associated Diagnosis Comments PROSTATE SPECIFIC ANTIGEN SCREEN Routine 09/01/2024 7:05 AM EST 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 Encounter for screening for malignant neoplasm of prostate Unspecified intracranial injury with loss of consciousness of unspecified duration, sequela (CMS/HCC) SST - GOLD Routine 09/01/2024 7:05 AM EST 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 Encounter for screening for malignant neoplasm of prostate Unspecified intracranial injury with loss of consciousness of unspecified duration, sequela (CMS/HCC) CBC WITH AUTO DIFFERENTIAL Routine 09/01/2024 7:05 AM EST 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 Encounter for screening for malignant neoplasm of prostate Unspecified intracranial injury with loss of consciousness of unspecified duration, sequela (CMS/HCC) VITAMIN D 25 HYDROXY Routine 09/01/2024 7:05 AM EST Other jail (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 Encounter for screening for malignant neoplasm of prostate Unspecified intracranial injury with loss of consciousness of unspecified duration, sequela (CMS/HCC) LEVETIRACETAM LEVEL Routine 09/01/2024 7 :05 AM EST Other jail (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 Encounter for screening for malignant neoplasm of prostate Unspecified intracranial injury with loss of consciousness of unspecified duration, sequela (CMS/HCC) CBC AND DIFFERENTIAL Routine 09/01/2024 7:05 AM EST 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 Encounter for screening for malignant neoplasm of prostate Unspecified intracranial injury with loss of consciousness of unspecified duration, sequela (CMS/HCC) VITAMIN B1 Routine 09/01/2024 7:05 AM EST 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 Encounter for screening for malignant neoplasm of prostate Unspecified intracranial injury with loss of consciousness of unspecified duration, sequela (CMS/HCC) AMMONIA Routine 09/01/2024 7:05 AM EST 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 Encounter for screening for malignant neoplasm of prostate Unspecified intracranial injury with loss of consciousness of unspecified duration, sequela (CMS/HCC) VALPROIC ACID LEVEL, TOTAL Routine 09/01/2024 7:05 AM EST Other jail (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 Encounter for screening for malignant neoplasm of prostate Unspecified intracranial injury with loss of consciousness of unspecified duration, sequela (CMS/HCC) COMPREHENSIVE METABOLIC PANEL Routine 09/01/2024 7:05 AM EST Other jail (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 Encounter for screening for malignant neoplasm of prostate Unspecified intracranial injury with loss of consciousness of unspecified duration, sequela (CMS/HCC) documented in this encounter Results * SST tube (09/01/2024 7:05 AM EST) Extra Tube Hold for add-ons. 09/02/2024 1:01 PM EST [facility] Comment:Auto resulted. Blood Venous blood specimen / Unknown 09/01/2024 7:05 AM EST 09/01/2024 12:52 PM EST us Armando Monreal MD LAB BLOOD ORDERABLES Final Resul t Performing Organization Address [facility]/ZIP Co de Phone Number [facility] [address] [place] [address], [place] [phone] * (ABNORMAL) Vitamin D 25 hydroxy (09/01/2024 7:05 AM EST) Vit D, 25-Hydroxy 25.1(L) 30.0 - 80.0 ng/mL LAB CHEMISTRY METHOD 09/01/2024 1:29 PM EST [facility] Blood Venous blood specimen / Unknown 09/01/2024 7:05 AM EST 09/01/2024 8:16 AM EST us Armando Monreal MD LAB BLOOD ORDERABLES Final Resul t Performing Organization Address City/[facility]/ZIP Co de Phone Number [facility] [address] [place] [address], [place] [phone] * (ABNORMAL) CBC auto differential (09/01/2024 7:05 AM EST) WBC 12.1(H) 4.8 - 10.8 K/[facility] HEMETOLOGY METHOD 09/01/2024 10:45 AM EST [facility] RBC 5.80(H) 4.50 - 5.50 M/[facility] HEMETOLOGY METHOD 09/01/2024 10:45 AM EST [facility] Hemoglobin 12.5(L) 13.5 - 17.5 g/dL LAB HEMETOLOGY METHOD 09/01/2024 10:45 AM EST [facility] Hematocrit 39.0(L) 42.0 - 54.0 % LAB HEMETOLOGY METHOD 09/01/2024 10:45 AM [facility] MCV 67.7(L) 79.0 - 98.0 FL LAB HEMETOLOGY METHOD 09/01/2024 10:45 AM [facility] MCH 21.7(L) 27.0 - 32.0 pcg LAB HEMETOLOGY METHOD 09/01/2024 10:45 AM [facility] MCHC 32.1 32.0 - 37.0 g/dL LAB HEMETOLOGY METHOD 09/01/2024 10:45 AM [facility] RDW 18.9(H) 11.0 - 15.0 % LAB HEMETOLOGY METHOD 09/01/2024 10:45 AM [facility] Platelets 302 130 - 400 K/mcL LAB HEMETOLOGY METHOD 09/01/2024 10:45 AM [facility] MPV 12.3(H) 7.0 - 11.0 FL LAB HEMETOLOGY METHOD 09/01/2024 10:45 AM [facility] NRBC 0.8 <1.0 % LAB HEMETOLOGY METHOD 09/01/2024 10:45 AM [facility] NRBC Absolute 0.10(H) <0.10 K/mcL LAB HEMETOLOGY METHOD 09/01/2024 10:45 AM [facility] Neutrophils Relative 42.5 % LAB HEMETOLOGY METHOD 09/01/2024 10:45 AM [facility] Lymphocytes Relative 44.0 % LAB HEMETOLOGY METHOD 09/01/2024 10:45 AM [facility] Monocytes Relative 8.8 % LAB HEMETOLOGY METHOD 09/01/2024 10:45 AM [facility] Eosinophils Relative 3.0 % LAB HEMETOLOGY METHOD 09/01/2024 10:45 AM [facility] Basophils Relative 0.9 % LAB HEMETOLOGY METHOD 09/01/2024 10:45 AM EST [facility] Immature Granulocytes Relative 0.8 % LAB HEMETOLOGY METHOD 09/01/2024 10:45 AM EST [facility] Neutrophils Absolute 5.14 1.50 - 7.00 K/mcL LAB HEMETOLOGY METHOD 09/01/2024 10:45 AM EST [facility] Lymphocytes Absolute 5.32(H) 1.00 - 5.00 K/mcL LAB HEMETOLOGY METHOD 09/01/2024 10:45 AM EST [facility] Monocytes Absolute 1.06(H) 0.20 - 1.00 K/mcL LAB HEMETOLOGY METHOD 09/01/2024 10:45 AM EST [facility] Eosinophils Absolute 0.36 0.00 - 0.50 K/mcL LAB HEMETOLOGY METHOD 09/01/2024 10:45 AM EST [facility] Basophils Absolute 0.11 0.00 - 0.20 K/mcL LAB HEMETOLOGY METHOD 09/01/2024 10:45 AM EST [facility] Immature Granulocytes Absolute 0.10(H) 0.00 - 0.03 K/mcL LAB HEMETOLOGY METHOD 09/01/2024 10:45 AM EST [facility] Blood Venous blood specimen / Unknown 09/01/2024 7:05 AM EST 09/01/2024 8:16 AM EST us Armando Monreal MD LAB BLOOD ORDERABLES Final Resul t [facility] [address] [place] [address], * Levetiracetam level (09/01/2024 7:05 AM EST) Levetiracetam 8.8 3.0 - 60.0 ug/mL 09/04/2024 7:28 AM EST [facility] Comment: Steady state trough serum or plasma levels following doses of 1000 to 3000 mg/Day: ??3 to 37 ug/mL. The same dosage regimen will typically result in peak levels of 10 to 60 ug/mL, at approximately 1.5 hours post dose. If applicable, any drug confirmation testing reported here was developed and the performance characteristics determined by [facility]. This confirmation testing has not been cleared or approved by the FDA. The laboratory is regulated under CLIA as qualified to perform high-complexity testing. This test is used for patient testing purposes. It should not be regarded as investigational or for research. Test performed at [facility], [address] , [place], [place] ??[address] ? [phone] Madeline Tan MD, PhD - Budget Coordinator Blood Venous blood specimen / Unknown 09/01/2024 7:05 AM EST 09/01/2024 8:16 AM EST us Armando Monreal MD LAB BLOOD ORDERABLES Final Resul t [facility] [address] [place] [address] * Valproic acid level, total (09/01/2024 7:05 AM EST) Pathologist [facility] Valproic Acid, Total 58 50 - 100 mcg/mL LAB CHEMISTRY METHOD 09/01/2024 9:55 AM EST [facility] Blood Venous blood specimen / Unknown 09/01/2024 7:05 AM EST 09/01/2024 8:16 AM EST us Armando Monreal MD LAB BLOOD ORDERABLES Final Resul t [facility] [address] [place] [address], [place] [phone] * (ABNORMAL) Ammonia (09/01/2024 7:05 AM EST) Ammonia 48(H) 11 - 35 mcmol/L LAB CHEMISTRY METHOD 09/01/2024 9:01 AM EST [facility] Blood Venous blood specimen / Unknown 09/01/2024 7:05 AM EST 09/01/2024 8:16 AM EST us Armando Monreal MD LAB BLOOD ORDERABLES Final Resul t Performing Organization Address [facility] de Phone Number [facility] [address] [place] [address], * Prostate specific antigen screen (09/01/2024 7:05 AM EST) PSA 0.26 0.00 - 4.00 ng/mL LAB CHEMISTRY METHOD 09/01/2024 9:55 AM EST [facility] Blood Venous blood specimen / Unknown 09/01/2024 7:05 AM EST 09/01/2024 8:16 AM EST Narrative [facility] - 09/01/2024 9:55 AM EST The Siemens Advia Centaur Chemiluminescent Immunoassay is used. Results obtained with different assay methods or kits cannot be used interchangeably. Results cannot be interpreted as absolute evidence of the presence or absence of malignant disease. us Armando Monreal MD LAB BLOOD ORDERABLES Final Resul t Performing Organization Address [facility] Co de Phone Number [facility] [address] [place] [address], [place] [phone] * Vitamin B1 (09/01/2024 7:05 AM EST) Vitamin B1 Whole Blood 91 38 - 122 ug/L 09/05/2024 10:41 AM EST [facility] Comment: This test was developed and the performance characteristics determined by [facility]. It has not been cleared or approved by the FDA. The laboratory is regulated under CLIA as qualified to perform high-complexity testing. This test is used for patient testing purposes. It should not be regarded as investigational or for research. Test performed at [facility], [facility] [address], [place], [place] ??[address] ? [phone] Madeline Tan MD, PhD - Budget Coordinator Blood Venous blood specimen / Unknown 09/01/2024 7:05 AM EST 09/01/2024 8:16 AM EST us Armando Monreal MD LAB BLOOD ORDERABLES Final Resul t [facility] [address] [place] [address] * (ABNORMAL) Comprehensive metabolic panel (09/01/2024 7:05 AM EST) Sodium 139 133 - 145 mmol/L LAB CHEMISTRY METHOD 09/01/2024 9:02 AM [facility] Potassium 4.7 3.5 - 5.5 mmol/L LAB CHEMISTRY METHOD 09/01/2024 9:02 AM [facility] Chloride 107 96 - 110 mmol/L LAB CHEMISTRY METHOD 09/01/2024 9:02 AM [facility] CO2 27 21 - 32 mmol/L LAB CHEMISTRY METHOD 09/01/2024 9:02 AM [facility] Anion Gap 5 3 - 11 LAB CHEMISTRY METHOD 09/01/2024 9:02 AM [facility] Glucose 125(H) 70 - 100 mg/dL LAB CHEMISTRY METHOD 09/01/2024 9:02 AM [facility] BUN 10 5 - 25 mg/dL LAB CHEMISTRY METHOD 09/01/2024 9:02 AM [facility] Creatinine 0.64(L) 0.70 - 1.30 mg/dL LAB CHEMISTRY METHOD 09/01/2024 9:02 AM [facility] eGFR 106 >=60 mL/min/1. 73m2 LAB CHEMISTRY METHOD 09/01/2024 9:02 AM [facility] Comment:Calculation based on the??Chronic Kidney Disease Epidemiology Collaboration (CKD-EPI) equation refit??without adjustment for race. BUN/Creatinine Ratio 15.6 LAB CHEMISTRY METHOD 09/01/2024 9:02 AM [facility] Calcium 9.4 8.5 - 10.5 mg/dL LAB CHEMISTRY METHOD 09/01/2024 9:02 AM [facility] AST (SGOT) 16 10 - 42 unit/L LAB CHEMISTRY METHOD 09/01/2024 9:02 AM [facility] ALT (SGPT) 18 10 - 60 unit/L LAB CHEMISTRY METHOD 09/01/2024 9:02 AM [facility] Alkaline Phosphatase 67 42 - 121 unit/L LAB CHEMISTRY METHOD 09/01/2024 9:02 AM [facility] Total Protein 7.1 6.0 - 8.0 g/dL LAB CHEMISTRY METHOD 09/01/2024 9:02 AM [facility] Albumin 3.5 3.2 - 5.0 g/dL LAB CHEMISTRY METHOD 09/01/2024 9:02 AM [facility] Total Bilirubin 0.7 0.0 - 1.4 mg/dL LAB CHEMISTRY METHOD 09/01/2024 9:02 AM [facility] Blood Venous blood specimen / Unknown 09/01/2024 7:05 AM EST 09/01/2024 8:16 AM EST us Armando Monreal MD LAB BLOOD ORDERABLES Final Resul t [facility] [address] [place] [address], [place] [phone] documented in this encounter Visit Diagnoses Diagnosis Other jail (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 Encounter for screening for malignant neoplasm of prostate Unspecified intracranial injury with loss of consciousness of unspecified duration, sequela (CMS/HCC V24) documented in this encounter Care Teams Customer Service Representative Relationship Specialty Start Date End Date Armando Monreal MD [address] [place] [address] Dr Reece Hobson [place] PCP - General Internal Medicine 12/06/24 documented as of this encounter
--- OUTSIDE RECORDS SUMMARY | 2025-02-17 16:33 | XMS_ITS | Encounter Summary ---
Author Organization [employer] Address [address] [place] [address] Care Team Providers Care Extender Name Role Phone Armando Monreal MD Primary Care Provider [phone] Encounter Details Date Type Department Care Team (Late st Contact Info) Description 10/22/2024 Lab Requisition [facility] - Main Lab [address] [facility] [place] [address] Armando Monreal MD [address] [place] [address] [address] [place], [place] Other abnormal tumor markers; Benign prostatic hyperplasia without lower urinary tract symptoms; Hypothyroidism, unspecified; Iron deficiency anemia, unspecified; Hyperlipidemia, unspecified; Other assisted (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 Social History Tobacco Use [...] Procedure Name Priority Date/Time Associated Diagnosis Comments SST - GOLD Routine 10/22/2024 6:05 AM EST Other abnormal tumor markers Benign prostatic hyperplasia without lower urinary tract symptoms Hypothyroidism, unspecified Iron deficiency anemia, unspecified Hyperlipidemia, unspecified 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 MANUAL DIFFERENTIAL - SYSMEX WAM Routine 10/22/2024 6:05 AM EST Other abnormal tumor markers Benign prostatic hyperplasia without lower urinary tract symptoms Hypothyroidism, unspecified Iron deficiency anemia, unspecified Hyperlipidemia, unspecified 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 CBC WITH AUTO DIFFERENTIAL Routine 10/22/2024 6:05 AM EST Other abnormal tumor markers Benign prostatic hyperplasia without lower urinary tract symptoms Hypothyroidism, unspecified Iron deficiency anemia, unspecified Hyperlipidemia, unspecified 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 RED - PLAIN Routine 10/22/2024 6:05 AM EST Other abnormal tumor markers Benign prostatic hyperplasia without lower urinary tract symptoms Hypothyroidism, unspecified Iron deficiency anemia, unspecified Hyperlipidemia, unspecified Other assisted (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 ALPHA FETOPROTEIN TUMOR MARKER Routine 10/22/2024 6:05 AM EST Other abnormal tumor markers Benign prostatic hyperplasia without lower urinary tract symptoms Hypothyroidism, unspecified Iron deficiency anemia, unspecified Hyperlipidemia, unspecified Other assisted (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 CBC AND DIFFERENTIAL Routine 10/22/2024 6:05 AM EST Other abnormal tumor markers Benign prostatic hyperplasia without lower urinary tract symptoms Hypothyroidism, unspecified Iron deficiency anemia, unspecified Hyperlipidemia, unspecified Other assisted (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 COMPREHENSIVE METABOLIC PANEL Routine 10/22/2024 6:05 AM EST Other abnormal tumor markers Benign prostatic hyperplasia without lower urinary tract symptoms Hypothyroidism, unspecified Iron deficiency anemia, unspecified Hyperlipidemia, unspecified 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 documented in this encounter Results * (ABNORMAL) Manual differential (10/22/2024 6:05 AM EST) Neutrophils % 47.0 % LAB HEMETOLOGY METHOD 10/22/2024 8:38 AM [facility] Lymphocytes % 41.0 % LAB HEMETOLOGY METHOD 10/22/2024 8:38 AM [facility] Monocytes % 9.0 % LAB HEMETOLOGY METHOD 10/22/2024 8:38 AM [facility] Eosinophils % 4.0 % LAB HEMETOLOGY METHOD 10/22/2024 8:38 AM [facility] Basophils % 0.0 % LAB HEMETOLOGY METHOD 10/22/2024 8:38 AM [facility] Neutrophils Absolute Manual 5.88 1.50 - 7.00 K/mcL LAB HEMETOLOGY METHOD 10/22/2024 8:38 AM [facility] Lymphocytes Absolute 5.13(H) 1.00 - 5.00 K/mcL LAB HEMETOLOGY METHOD 10/22/2024 8:38 AM EST [facility] Monocytes Absolute Manual 1.13(H) 0.20 - 1.00 K/mcL LAB HEMETOLOGY METHOD 10/22/2024 8:38 AM EST [facility] Eosinophils Absolute Manual 0.50 0.00 - 0.50 K/[facility] LAB HEMETOLOGY METHOD 10/22/2024 8:38 AM EST [facility] Basophils Absolute Manual 0.00 0.00 - 0.20 K/mcL LAB HEMETOLOGY METHOD 10/22/2024 8:38 AM [facility] Rbc Morphology Present( A) Consistent with indices, Normal for LAB HEMETOLOGY METHOD 10/22/2024 8:38 AM [facility] Platelet Morphology - WAM See Note(A) Normal LAB HEMETOLOGY METHOD 10/22/2024 8:38 AM EST [facility] Comment:PLT: Normal Pappenheimer Bodies Present Present( A) (none) LAB HEMETOLOGY METHOD 10/22/2024 8:38 AM EST [facility] Target Cells Present 11 - 15%(A) (none) LAB HEMETOLOGY METHOD 10/22/2024 8:38 AM [facility] Blood Venous blood specimen / Unknown 10/22/2024 6:05 AM EST 10/22/2024 7:44 AM EST us Armando Monreal MD LAB BLOOD ORDERABLES Final Resul t [facility]) [facility] [address] [place] [address], * Red tube (10/22/2024 6:05 AM EST) Extra Tube Hold for add-ons. 11/13/2024 9:04 AM EST [facility] Comment:Auto resulted. Blood Venous blood specimen / Unknown 10/22/2024 6:05 AM EST 10/22/2024 7:44 AM EST us Armando Monreal MD LAB BLOOD ORDERABLES Final Resul t Performing Organization Address [facility]/ZIP Co de Phone Number [facility] [address] [place] [address], [place] [phone] * SST tube (10/22/2024 6:05 AM EST) Extra Tube Hold for add-ons. 11/13/2024 9:04 AM EST [facility] Comment:Auto resulted. Blood Venous blood specimen / Unknown 10/22/2024 6:05 AM EST 10/22/2024 7:44 AM EST us Armando Monreal MD LAB BLOOD ORDERABLES Final Resul t Performing Organization Address City/[facility]/ZIP Co de Phone Number [facility] [address] [place] [address], [place] [phone] * (ABNORMAL) CBC auto differential (10/22/2024 6:05 AM EST) WBC 12.5(H) 4.8 - 10.8 K/[facility] LAB HEMETOLOGY METHOD 10/22/2024 8:38 AM [facility] RBC 5.70(H) 4.50 - 5.50 M/[facility] LAB HEMETOLOGY METHOD 10/22/2024 8:38 AM [facility] Hemoglobin 12.3(L) 13.5 - 17.5 g/dL LAB HEMETOLOGY METHOD 10/22/2024 8:38 AM [facility] Hematocrit 37.7(L) 42.0 - 54.0 % LAB HEMETOLOGY METHOD 10/22/2024 8:38 AM [facility] MCV 66.1(L) 79.0 - 98.0 FL LAB HEMETOLOGY METHOD 10/22/2024 8:38 AM EST [facility] MCH 21.6(L) 27.0 - 32.0 pcg LAB HEMETOLOGY METHOD 10/22/2024 8:38 AM [facility] MCHC 32.6 32.0 - 37.0 g/dL LAB HEMETOLOGY METHOD 10/22/2024 8:38 AM EST [facility] RDW 18.5(H) 11.0 - 15.0 % LAB HEMETOLOGY METHOD 10/22/2024 8:38 AM [facility] Platelets 265 130 - 400 K/mcL LAB HEMETOLOGY METHOD 10/22/2024 8:38 AM [facility] MPV 12.3(H) 7.0 - 11.0 FL LAB HEMETOLOGY METHOD 10/22/2024 8:38 AM EST [facility] NRBC 1.1(H) <1.0 % LAB HEMETOLOGY METHOD 10/22/2024 8:38 AM [facility] NRBC Absolute 0.14(H) <0.10 K/mcL LAB HEMETOLOGY METHOD 10/22/2024 8:38 AM [facility] Blood Venous blood specimen / Unknown 10/22/2024 6:05 AM EST 10/22/2024 7:44 AM EST us Armando Monreal MD LAB BLOOD ORDERABLES Final Resul t [facility] [address] [place] [address], * Alpha fetoprotein tumor marker (10/22/2024 6:05 AM EST) AFP 4.4 0.0 - 8.0 ng/mL LAB CHEMISTRY METHOD 10/22/2024 8:38 AM [facility] Blood Venous blood specimen / Unknown 10/22/2024 6:05 AM EST 10/22/2024 7:44 AM EST [facility] - 10/22/2024 8:38 AM EST The Siemens Advia Centaur Chemiluminescent Immunoassay is used. Results obtained with different assay methods or kits cannot be used interchangeably. Results cannot be interpreted as absolute evidence of the presence or absence of malignant disease. us Armando Monreal MD LAB BLOOD ORDERABLES Final Resul t [facility] [address] [place] [address], * (ABNORMAL) Comprehensive metabolic panel (10/22/2024 6:05 AM EST) Sodium 138 133 - 145 mmol/L LAB CHEMISTRY METHOD 10/22/2024 8:39 AM [facility] Potassium 4.6 3.5 - 5.5 mmol/L LAB CHEMISTRY METHOD 10/22/2024 8:39 AM [facility] Chloride 106 96 - 110 mmol/L LAB CHEMISTRY METHOD 10/22/2024 8:39 AM [facility] CO2 27 21 - 32 mmol/L LAB CHEMISTRY METHOD 10/22/2024 8:39 AM [facility] Anion Gap 5 3 - 11 LAB CHEMISTRY METHOD 10/22/2024 8:39 AM [facility] Glucose 128(H) 70 - 100 mg/dL LAB CHEMISTRY METHOD 10/22/2024 8:39 AM [facility] BUN 12 5 - 25 mg/dL LAB CHEMISTRY METHOD 10/22/2024 8:39 AM [facility] Creatinine 0.60(L) 0.70 - 1.30 mg/dL LAB CHEMISTRY METHOD 10/22/2024 8:39 AM [facility] eGFR 108 >=60 mL/min/1. 73m2 LAB CHEMISTRY METHOD 10/22/2024 8:39 AM [facility] Comment:Calculation based on the??Chronic Kidney Disease Epidemiology Collaboration (CKD-EPI) equation refit??without adjustment for race. BUN/Creatinine Ratio 20.0 LAB CHEMISTRY METHOD 10/22/2024 8:39 AM [facility] Calcium 9.1 8.5 - 10.5 mg/dL LAB CHEMISTRY METHOD 10/22/2024 8:39 AM [facility] AST (SGOT) 12 10 - 42 unit/L LAB CHEMISTRY METHOD 10/22/2024 8:39 AM [facility] ALT (SGPT) 18 10 - 60 unit/L LAB CHEMISTRY METHOD 10/22/2024 8:39 AM [facility] Alkaline Phosphatase 63 42 - 121 unit/L LAB CHEMISTRY METHOD 10/22/2024 8:39 AM [facility] Total Protein 7.0 6.0 - 8.0 g/dL LAB CHEMISTRY METHOD 10/22/2024 8:39 AM [facility] Albumin 3.4 3.2 - 5.0 g/dL LAB CHEMISTRY METHOD 10/22/2024 8:39 AM [facility] Total Bilirubin 0.9 0.0 - 1.4 mg/dL LAB CHEMISTRY METHOD 10/22/2024 8:39 AM [facility] Blood Venous blood specimen / Unknown 10/22/2024 6:05 AM EST 10/22/2024 7:44 AM EST Armando Monreal MD LAB BLOOD ORDERABLES Final Resul t [facility] [address] [place] [address], documented in this encounter Visit Diagnoses Diagnosis Other abnormal tumor markers Benign prostatic hyperplasia without lower urinary tract symptoms Hypothyroidism, unspecified Iron deficiency anemia, unspecified Hyperlipidemia, unspecified 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
--- OUTSIDE RECORDS SUMMARY | 2025-02-17 16:33 | XMS_ITS | Encounter Summary ---
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 Social History Tobacco Use Types Packs/Day Years Used Date Smoking Tobacco: Never Assessed Sex and Gender Information Value Date Recorded Sex Assigned at Not on file Legal Sex Male 5:38 PM EST Gender Identity Not on file Sexual Orientation Not on file documented as of this encounter Plan of Treatment Pending Results Name Type Priority Associated Diagnoses Date /Time Hepatitis C virus quantitative molecular study Lab Routine Other intermediate (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 02/17/2025 9:16 AM EDT documented as of this encounter Visit Diagnoses Diagnosis 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
== END 2025-02-17 13:48 | disposition home or self-care (01) ==
LOC: HO.HAP 13:47
PROVIDERS: Visit Provider Hospitalist
DX: Z46.1 Encounter for fitting and adjustment of hearing aid (principal); H90.3 Sensorineural hearing loss, bilateral
CPT/HCPCS: 92593; 99499

== ENCOUNTER 2025-10-01 11:03 | Outpatient (REF) | payer MEDICARE, MEDICAID, SELFPAY ==
--- NOTE | 2025-10-01 14:44 | MHC.AU.HA3 ---
Hearing Instrument Follow-Up- Binaural Date of Visit: 10/01/25 Right Ear: Iftikhar, , Color, Serial Number: Ronnie Palma [id number] SN: [id number] Color: Black Traffic Analysis Technician Repair Warranty: 09/30/2026 Traffic Analysis Technician Loss and Damage Warranty: 09/30/2026 [facility] Service Plan: 09/05/2024 Battery Size: Rechargeable Substation Electrician Supervisor/Slim Tube: 1M Earmold/Dome/CShell/SlimTip:Small power dome (no retention tail) Type of Wax Guard: CeruShield Dispensed By: [facility] Date of Fittin09/05/2023 Left Ear: Iftikhar, , Color, Serial Number: Ronnie Palma [id number] SN: [id number] Color: Black Traffic Analysis Technician Repair Warranty: 09/30/2026 Traffic Analysis Technician Loss and Damage Warranty: USED [facility] Service Plan: 09/05/2024 Battery Size: Rechargeable Substation Electrician Supervisor/Slim Tube: 1M Earmold/Dome/CShell/SlimTip: Small power dome (no retention tail) Type of Wax Guard: CeruShield Disk Dispensed By: [facility] Date of Fittin09/05/2023 Follow-Up Summary: Accompanied by [facility] staff who waited in waiting room. DODSON maintenance, wax build up noted on domes and in wax guards. Cleaned HAs (2). Replaced domes and wax guards (4). [phone] x6. Vacuumed microphones. Ran through dehumidifier. Listening check demonstrated HAs amplifying clearly. Otoscopy clear, bilaterally. Recommendations: Hearing instrument follow-up or maintenance as needed. Please contact our clinic with any questions or concerns. Diagnosis Code(s):Primary Diagnosis: H90.3 Bilateral Sensorineural Hearing Loss Signature: Provider: Leoncio Mckeon, [facility]
== END 2025-10-01 11:04 | disposition home or self-care (01) ==
LOC: HO.HAP 11:03
PROVIDERS: Visit Provider Hospitalist
DX: H90.3 Sensorineural hearing loss, bilateral (principal)
CPT/HCPCS: 92593; 99499